=== PATIENT | female | born 1945 | race Caucasian/White ===

== ENCOUNTER 2022-03-25 13:47 | Inpatient (IN) | payer MEDICARE, SELFPAY ==
[2022-03-25] VITALS (13 sets, daily range): BP systolic 92–143; BP diastolic 56–81; PULSE 86–148; RESP 18–39; TEMP 36.9–37.9; O2SAT 90–94; BMI 32.5
--- NOTE | 2022-03-25 13:56 | HMH.EDUTC ---
[facility] [place] Disposition Clinical Impression: Atrial fibrillation with rapid ventricular response, Hypokalemia Urinary tract infection Qualifiers: Urinary tract infection type: site unspecified Hematuria presence: without hematuria Qualified Code(s): N39.0 - Urinary tract infection, site not specified Sepsis Qualifiers: Sepsis type: sepsis due to unspecified organism Sepsis acute organ dysfunction status: without acute organ dysfunction Qualified Code(s): A41.9 - Sepsis, unspecified organism Disposition: Admitted As Inpatient Condition on Discharge: Good Medical Decision Making - Medical Records Medical records reviewed: No: I reviewed the patient's medical records. - Venkatesh Inquiry Pt receiving controlled substance: No Vital Signs: 03/25/22 14:15 03/25/22 15:01 03/25/22 15:13 Temperature 98.4 F 100.2 F H Temperature Source Oral Oral Pulse Rate 139 H Pulse Rate [Left Radial] 135 H 139 H Respiratory Rate 22 18 Blood Pressure 116/66 Blood Pressure [Right Arm] 127/71 104/56 L Blood Pressure Mean 76 Blood Pressure Mean [Right Arm] 89 72 Blood Pressure Source Blood Pressure Source [Right Arm] Automatic Cuff Blood Pressure Position Blood Pressure Position [Right Arm] Sitting 02 Sat by Pulse Oximetry 92 L 94 L 93 L Oxygen Delivery Method Room Air 03/25/22 15:30 03/25/22 16:01 03/25/22 16:31 Temperature Temperature Source Pulse Rate 148 H 135 H 130 H Pulse Rate [Left Radial] Respiratory Rate 24 22 Blood Pressure 143/80 H 92/65 L 113/74 Blood Pressure [Right Arm] Blood Pressure Mean 96 70 86 Blood Pressure Mean [Right Arm] Blood Pressure Source Blood Pressure Source [Right Arm] Blood Pressure Position Blood Pressure Position [Right Arm] 02 Sat by Pulse Oximetry 93 L 91 L 94 L Oxygen Delivery Method 03/25/22 17:00 03/25/22 17:30 03/25/22 18:07 Temperature 100.2 F H Temperature Source Oral Pulse Rate 130 H 108 H 108 H Pulse Rate [Left Radial] Respiratory Rate 22 27 H 27 H Blood Pressure 120/81 128/64 128/64 Blood Pressure [Right Arm] Blood Pressure Mean 89 80 Blood Pressure Mean [Right Arm] Blood Pressure Source Automatic Cuff Blood Pressure Source [Right Arm] Blood Pressure Position Sitting Blood Pressure Position [Right Arm] 02 Sat by Pulse Oximetry 93 L 92 L Oxygen Delivery Method Room Air 03/25/22 18:10 Temperature 99.7 F H Temperature Source Oral Pulse Rate Pulse Rate [Left Radial] 97 H Respiratory Rate 39 H Blood Pressure Blood Pressure [Right Arm] 110/58 L Blood Pressure Mean Blood Pressure Mean [Right Arm] 75 Blood Pressure Source Blood Pressure Source [Right Arm] Automatic Cuff Blood Pressure Position Blood Pressure Position [Right Arm] 02 Sat by Pulse Oximetry 93 L Oxygen Delivery Method Room Air - Lab Data Lab results reviewed: Yes: I reviewed the patient's lab results. Lab Results 03/25/22 15:01: Magnesium 1.8, Troponin I 0.02 03/25/22 15:01: TSH 1.68, Free T4 Index 3.5 L, Thyroxine (T4) 9.3, T3 Uptake 38 03/25/22 15:07: SARS-CoV-2 (PCR) Not detected, Influenza A Untype (PCR) Not detected, Influenza Type B (PCR) Not detected 03/25/22 15:14: Urine Color Dark yellow, Urine Appearance Clear, Urine pH 5.0, Ur Specific [place] 1.025, Urine Protein 1+, Urine Glucose (UA) Negative, Urine Ketones Trace, Urine Blood 3+, Urine Nitrate Positive, Urine Bilirubin 2+ A, Urine Urobilinogen >=8.0, Ur Leukocyte Esterase 1+ A, Urine RBC 10-20, Urine WBC 5-10, Ur Squamous Epith Cells 3-5, Amorphous Sediment 3+, Urine Bacteria 4+ 03/25/22 15:14: WBC 17.8 H, RBC 4.57, Hgb 15.7, Hct 44.9, MCV 98.2, MCH 34.4 H, MCHC 35.0, RDW 13.8, Plt Count 125 L, MPV 11.6 H, Neut % (Auto) 86.8 H, Lymph % (Auto) 7.1 L, [place] % (Auto) 4.5, Eos % (Auto) 0.9, Baso % (Auto) 0.8, Neut # (Auto) 15.4 H, Lymph # (Auto) 1.3, [place] # (Auto) 0.8, Eos # (Auto) 0.2, Baso # (Auto) 0.1, Total Counted 100, Neutrophils % (Manual) 92 H, Lymphocytes % (Manual)
--- NOTE | 2022-03-25 15:14 | XR_ITS ---
FINAL REPORT CLINICAL HISTORY: acute cough, fever FINDINGS: The heart size is normal. The mediastinum is normal. There are mild bibasilar opacities, scarring or atelectasis. There are no pleural effusions. There is no pneumothorax. There is no osseous abnormality. IMPRESSION: Mild bibasilar opacities, scarring or atelectasis. Reviewed, Interpreted and Dictated by Bryan Anaya III, MD Transcribed by Radha Zamarripa Authenticated by Bryan Anaya III, MD on 03/25/2022 04:17:50 PM [facility]
--- NOTE | 2022-03-25 15:14 | CT_ITS ---
FINAL REPORT CLINICAL HISTORY: ams FINDINGS: Axial images of the head were obtained without contrast. Coronal reformatted images were also obtained.This study was performed with techniques to keep radiation doses as low as reasonably achievable (ALARA). Individualized dose reduction techniques using automated exposure control or adjustment of mA and/or kV according to the patient's size were employed. There are sizable areas of encephalomalacia bilaterally. There is moderate chronic ischemic change. There is no evidence of intracranial hemorrhage or mass. The ventricular size is within normal limits. There is no evidence of shift of the midline structures. No abnormal extra axial fluid collection is identified. There is postoperative change from left frontotemporal craniotomy. There is postoperative change at the left base of the brain with an aneurysm clip. There is mild mucosal thickening in the left maxillary sinus. IMPRESSION: Postoperative changes. Sizable areas of encephalomalacia bilaterally. Moderate chronic ischemic change. No acute intracranial abnormality. Reviewed, Interpreted and Dictated by Bryan Anaya III, MD Transcribed by Lincoln Gtz Authenticated by Bryan Anaya III, MD on 03/25/2022 04:17:[address] [facility]
--- NOTE | 2022-03-25 15:17 | PC.NURSE ---
vinnie notified of new orders on pt, spoke with Favio
--- NOTE | 2022-03-25 15:18 | HMH.EDGENADL ---
ED Disposition Clinical Impression: Atrial fibrillation with rapid ventricular response, Hypokalemia Urinary tract infection Qualifiers: Urinary tract infection type: site unspecified Hematuria presence: without hematuria Qualified Code(s): N39.0 - Urinary tract infection, site not specified Sepsis Qualifiers: Sepsis type: sepsis due to unspecified organism Sepsis acute organ dysfunction status: without acute organ dysfunction Qualified Code(s): A41.9 - Sepsis, unspecified organism Disposition: Admitted As Inpatient Condition on Discharge: Fair Referrals: Saud Brown [Primary Care Provider] - - Critical Care Critical Care Time: Yes Attestation: On 03/25/22, the high probability of a clinically significant, sudden or life threatening deterioration of the following system(s) required my full and direct attention, intervention and personal management. The time I documented below is in addition to time spent performing reported procedures but includes the following listed in this critical care notation. Total Critical Care Time: 35 Vital system(s) involved:: Circulatory Failure My critical care processes included: Assessment & monitoring of V/S, Initial and Re-exams, Data Review/Interpretation, Coordinating Care, Medication Orders and management, Documentation Medical Decision Making - Venkatesh Inquiry Pt receiving controlled substance: No Vital Signs: 03/25/22 14:15 03/25/22 15:01 03/25/22 15:13 Temperature 98.4 F 100.2 F H Temperature Source Oral Oral Pulse Rate 139 H Pulse Rate [Left Radial] 135 H 139 H Respiratory Rate 22 18 Blood Pressure 116/66 Blood Pressure [Right Arm] 127/71 104/56 L Blood Pressure Mean 76 Blood Pressure Mean [Right Arm] 89 72 Blood Pressure Source [Right Arm] Automatic Cuff Blood Pressure Position [Right Arm] Sitting 02 Sat by Pulse Oximetry 92 L 94 L 93 L Oxygen Delivery Method Room Air 03/25/22 15:30 03/25/22 16:01 Temperature Temperature Source Pulse Rate 148 H 135 H Pulse Rate [Left Radial] Respiratory Rate 24 Blood Pressure 143/80 H 92/65 L Blood Pressure [Right Arm] Blood Pressure Mean 96 70 Blood Pressure Mean [Right Arm] Blood Pressure Source [Right Arm] Blood Pressure Position [Right Arm] 02 Sat by Pulse Oximetry 93 L 91 L Oxygen Delivery Method - Lab Data Lab Results 03/25/22 15:01: Magnesium 1.8, Troponin I 0.02 03/25/22 15:01: TSH 1.68, Free T4 Index 3.5 L, Thyroxine (T4) 9.3, T3 Uptake 38 03/25/22 15:07: SARS-CoV-2 (PCR) Not detected, Influenza A Untype (PCR) Not detected, Influenza Type B (PCR) Not detected 03/25/22 15:14: Urine Color Dark yellow, Urine Appearance Clear, Urine pH 5.0, Ur Specific [place] 1.025, Urine Protein 1+, Urine Glucose (UA) Negative, Urine Ketones Trace, Urine Blood 3+, Urine Nitrate Positive, Urine Bilirubin 2+ A, Urine Urobilinogen >=8.0, Ur Leukocyte Esterase 1+ A, Urine RBC 10-20, Urine WBC 5-10, Ur Squamous Epith Cells 3-5, Amorphous Sediment 3+, Urine Bacteria 4+ 03/25/22 15:14: WBC 17.8 H, RBC 4.57, Hgb 15.7, Hct 44.9, MCV 98.2, MCH 34.4 H, MCHC 35.0, RDW 13.8, Plt Count 125 L, MPV 11.6 H, Neut % (Auto) 86.8 H, Lymph % (Auto) 7.1 L, [place] % (Auto) 4.5, Eos % (Auto) 0.9, Baso % (Auto) 0.8, Neut # (Auto) 15.4 H, Lymph # (Auto) 1.3, [place] # (Auto) 0.8, Eos # (Auto) 0.2, Baso # (Auto) 0.1, Total Counted 100, Neutrophils % (Manual) 92 H, Lymphocytes % (Manual) 3 L, Monocytes % (Manual) 5, Platelet Estimate Normal 03/25/22 15:14: PT 11.9, INR 1.06 03/25/22 15:14: Sodium 136, Potassium 2.8 L*, Chloride 101, Carbon Dioxide 28, Anion Gap 9.8, BUN 23 H, Creatinine 1.20 H, Estimated Creat Clear 64, Estimated GFR 44 L, Est GFR ( Amer) 53 L, Glucose 127 H, Calcium 8.9, Total Bilirubin 1.9 H, AST 48 H, ALT 21, Alkaline Phosphatase 118, Total Protein 6.7, Albumin 3.4 L, Globulin 3.3 H, Albumin/Globulin Ratio 1.0 L 03/25/22 15:14: Lactate 1.7 Result diagrams: 03/25/22 15:14 03/25/22 15:14 Orders (Tests/Meds)
--- NOTE | 2022-03-25 15:19 | PC.NURSE ---
ANA WISEMAN at
[2022-03-25 15:23] LABS: Microscopic, Urine URINE MICROSCOPIC (MICROSCOPIC)
[2022-03-25 15:23] LABS: Coronavirus 19, PCR Not Detected (NotDetected); Influenza A, PCR Not Detected (NotDetected); Influenza B, PCR Not Detected (NotDetected)
[2022-03-25 15:24] LABS: Appearance,Urine CLEAR (Clear); Blood, Urine 3+ (Negative); Glucose,Urine (UA) Negative (Negative); Ketones,Urine TRACE (Negative); Leukocyte Esterase,Urine 1+ (Negative); Nitrate,Urine POSITIVE (Negative); Protein,Urine 1+ (Negative); Specific Gravity, Urine 1.025 (1.005-1.030); Urobilinogen,Urine >=8.0 EU/dl (0.2)
[2022-03-25 15:30] LABS: Chloride 101 mmol/L (98-107); Sodium 136 mmol/L (136-145)
[2022-03-25 15:31] LABS: Bilirubin,Urine 2+ (Negative); Color,Urine Dark Yellow (Yellow)
[2022-03-25 15:32] LABS: Alanine Aminotransferase 21 U/L (12-78); Aspartate Amino Transferase 48 U/L (14-36); Blood Urea Nitrogen 23 mg/dl (7-17); Creatinine Clearance Estimated 64 mL/min (50-200); Estimated Glomerular Filt Rate 44 ml/min (>60); GFR (African American) 53 ML/MIN (>60)
[2022-03-25 15:33] LABS: Albumin Level 3.4 g/dl (3.5-5.0); Alkaline Phosphatase 118 U/L (38-126); Anion Gap 9.8 mEq/L (5-15); Bilirubin,Total 1.9 mg/dl (0.2-1.3); Calcium 8.9 mg/dl (8.4-10.2); Carbon Dioxide 28 mmol/L (22.0-30.0); Globulin 3.3 g/dL (1.3-3.2); Glucose 127 mg/dl (74-100); Total Protein,Serum 6.7 g/dl (6.3-8.2)
--- NOTE | 2022-03-25 15:33 | ECG_ITS ---
APPROVED REPORT Exam: Resting ECG HR:146 bpm ECG Measurements Heart Rate 146 AXES QRSd 99 QRS -28 QT 289 T 129 QTc 373 Conclusion ATRIAL FLUTTER/TACHYCARDIA WITH RAPID VENTRICULAR RESPONSE BORDERLINE LEFT AXIS DEVIATION [QRS AXIS < -20] INCOMPLETE RIGHT BUNDLE BRANCH BLOCK [90+ ms QRS DURATION, TERMINAL R IN V1/V2, 40+ ms S IN I/aVL/V4/V5/V6] NONSPECIFIC ST & T-WAVE ABNORMALITY ABNORMAL ECG UNCONFIRMED REPORT Electronically signed by : Marcial lAfonso MD 03/27/2022 08:44:30
[2022-03-25 15:34] LABS: Lactic Acid 1.7 mmol/L (0.7-2.1)
[2022-03-25 15:35] LABS: Basophils # 0.1 K/mm3 (0-0.2); Basophils % 0.8 % (0.1-2.0); Eosinophils # 0.2 K/mm3 (0.0-0.4); Eosinophils % 0.9 % (0.1-12.0); Hematocrit 44.9 % (37.0-47.0); Hemoglobin 15.7 g/dL (12.2-16.2); Lymphocytes # 1.3 K/mm3 (0.7-4.5); Lymphocytes % 7.1 % (10-50); Mean Corpuscular Hemoglobin 34.4 pg (27.0-31.2); Mean Corpuscular Volume 98.2 fl (81-99); Mean Platelet Volume 11.6 fl (7.4-10.4); Monocytes # 0.8 K/mm3 (0.1-1.0); Monocytes % 4.5 % (1.7-9.3); Neutrophils # 15.4 K/mm3 (1.8-7.8); Neutrophils % 86.8 % (37.0-80.0); Platelet Count 125 K/mm3 (142-424); Red Blood Count 4.57 M/mm3 (4.20-5.40); Red Cell Distribution Width 13.8 % (11.5-17.5); White Blood Count 17.8 K/mm3 (4.8-10.8)
--- NOTE | 2022-03-25 15:35 | PC.NURSE ---
pt to CT via stretcher will be moving pt to room [address] pt returns from Ct to place pt on school bus monitor
[2022-03-25 15:36] LABS: Potassium 2.8 mmoL/L (3.5-5.1)
--- NOTE | 2022-03-25 15:36 | PC.NURSE ---
lab called with critical potassium result, notified ANA WISEMAN at this time.
[2022-03-25 15:40] LABS: INR 1.06 (0.9-1.1); Prothrombin Time 11.9 seconds (10.1-12.5)
[2022-03-25 15:55] LABS: Bacteria,Urine 4+ /lpf; MANUAL DIFFERENTIAL MANUAL DIFFERENTIAL (MANUAL DIFF)
[2022-03-25 15:56] LABS: Amorphous Sediment,Urine 3+ /lpf
[2022-03-25 15:58] LABS: Magnesium 1.8 mg/dl (1.6-2.3)
[2022-03-25 16:10] LABS: Troponin I 0.02 ng/ml (0.00-0.034)
[2022-03-25 16:14] LABS: Lymphocytes % 3 % (10-50); Monocytes % 5 % (2-9); Neutrophils % 92 % (42-76); Platelet Estimate Normal; Total Cells Counted 100
[2022-03-25 16:16] LABS: Free Thyroxine Index 3.5 ug/dL (5.93-13.13); T4 (Thyroxine) 9.3 ug/dl (5.53-11.0); Triiodothryronine (T3) Uptake 38 % (23.5-40.5)
--- NOTE | 2022-03-25 16:20 | PC.NURSE ---
Titrated cardizem to 10ml/hr
[2022-03-25 16:30] LABS: Thyroid Stimulating Hormone 1.68 uIU/mL (0.465-4.68)
--- NOTE | 2022-03-25 16:45 | PC.NURSE ---
ANA WISEMAN speaking with Dr. Felicinao who is environmental analyst for service pts
--- NOTE | 2022-03-25 16:54 | PC.NURSE ---
notified warehouse production worker of admission
--- NOTE | 2022-03-25 17:00 | PC.NURSE ---
Titrated cardizem 15mls/hr
--- NOTE | 2022-03-25 17:55 | PC.NURSE ---
Report given to Alexa MANRIQUEZ
--- NOTE | 2022-03-25 18:08 | PC.NURSE ---
Pt arrived to the floor at this time.
--- NOTE | 2022-03-25 19:28 | PC.NURSE ---
shift summary: new admit @ 1810. Pt is alert to name and but is otherwise pleasantly confused. did not stay for pt to be admitted. Admission completed with little to no medical info as pt is unable to recall her medical hx. She is incontinent of urine and wears a brief at home. Luz catheter inserted in ED. Afib with rate 90s on tele. Diltiazem gtt @ 15mg/hr. Normotensive. O2 sat low 90s on RA. Does not wear O2 at home.
[2022-03-25 19:38] LABS: Troponin I < 0.01 ng/ml (0.00-0.034)
[2022-03-25 23:00] LABS: Troponin I < 0.01 ng/ml (0.00-0.034)
[2022-03-26] VITALS (11 sets, daily range): BP systolic 90–118; BP diastolic 57–76; PULSE 76–100; RESP 16–36; TEMP 36.8–38.2; O2SAT 90–96
[2022-03-26 06:29] LABS: Basophils % 0.3 % (0.1-2.0); Eosinophils % 0.3 % (0.1-12.0); Hematocrit 42.1 % (37.0-47.0); Hemoglobin 14.2 g/dL (12.2-16.2); Lymphocytes # 0.9 K/mm3 (0.7-4.5); Lymphocytes % 7.1 % (10-50); Mean Corpuscular HGB Conc 33.8 g/dL (31.8-35.4); Mean Corpuscular Hemoglobin 33.7 pg (27.0-31.2); Mean Corpuscular Volume 99.5 fl (81-99); Mean Platelet Volume 11.5 fl (7.4-10.4); Monocytes # 0.7 K/mm3 (0.1-1.0); Monocytes % 5.6 % (1.7-9.3); Neutrophils # 11.2 K/mm3 (1.8-7.8); Neutrophils % 86.7 % (37.0-80.0); Platelet Count 118 K/mm3 (142-424); Red Blood Count 4.23 M/mm3 (4.20-5.40); Red Cell Distribution Width 13.9 % (11.5-17.5); White Blood Count 12.9 K/mm3 (4.8-10.8)
[2022-03-26 06:30] LABS: MANUAL DIFFERENTIAL MANUAL DIFFERENTIAL (MANUAL DIFF)
[2022-03-26 06:37] LABS: Anion Gap 9.8 mEq/L (5-15); Blood Urea Nitrogen 19 mg/dl (7-17); Calcium 8.1 mg/dl (8.4-10.2); Carbon Dioxide 28 mmol/L (22.0-30.0); Chloride 102 mmol/L (98-107); Creatinine Clearance Estimated 62 mL/min (50-200); Estimated Glomerular Filt Rate 61 ml/min (>60); GFR (African American) 74 ML/MIN (>60); Glucose 122 mg/dl (74-100); Sodium 137 mmol/L (136-145)
[2022-03-26 06:58] LABS: Potassium 2.8 mmoL/L (3.5-5.1)
[2022-03-26 07:00] LABS: Lymphocytes % 5 % (10-50); Monocytes % 3 % (2-9); Neutrophils % 92 % (42-76); Platelet Estimate Slight Decrease; Total Cells Counted 100
[2022-03-26 07:01] LABS: Anisocytosis 1+; Macrocytosis 1+
--- NOTE | 2022-03-26 07:44 | HMH.PHAINT ---
HOME MEDICATION LIST VERIFIED USING LIST FROM [facility]
--- NOTE | 2022-03-26 07:45 | P.CONPHA_ITS ---
[facility] Pharmacy VTE Monitoring - Patient Demographics Admission date: 03/25/22 Report Date: 03/26/22 Time: 07:45 Allergies/Adverse Reactions: Patient Allergies warfarin [From Coumadin] Allergy (Verified 03/25/22 15:14) Height: 99.79 m Weight: 81.148 kg Patient Problems: Current Active Problems Atrial fibrillation with rapid ventricular response (Acute) Hypokalemia (Acute) Urinary tract infection (Acute) Sepsis (Acute) - VTE Risk Labs: VTE Related Lab Results Hgb 14.2 g/dL (12.2-16.2) 03/26/22 05:40 Hct 42.1 % (37.0-47.0) 03/26/22 05:40 Plt Count 118 K/mm3 (142-424) L 03/26/22 05:40 PT 11.9 seconds (10.1-12.5) 03/25/22 15:14 INR 1.06 (0.9-1.1) 03/25/22 15:14 BUN 19 mg/dl (7-17) H 03/26/22 05:40 Creatinine 0.90 mg/dl (0.52-1.04) D 03/26/22 05:40 Estimated Creat Clear 62 mL/min (50-200) 03/26/22 05:40 Was VTE Risk Assessment Performed: Yes VTE Score: 3 VTE Risk Level: Low Risk Clinical Trial Participant: No - Prophylaxis VTE Prophylaxis Ordered?: Yes Types of VTE Prophylaxis: TEDS Knee High
--- NOTE | 2022-03-26 09:53 | HMH.HP ---
*Admission Date: 03/25/22 *Chief complaint: Weakness *History of present illness: 76-year-old female patient presented to the emergency department, reports patient is chronically ill in a wheelchair and has been sitting all day in the wheelchair eating and drinking very little. He reports she has had a loose bowel movement yesterday morning, she denied any nausea or vomiting and is normally incontinent of urine and wears attends. denies any cough or respiratory distress cough and patient did have a temperature in the emergency department. reports she did have an aneurysm and she did have abnormal head CT's in the ED which revealed Postoperative changes. Sizable areas of encephalomalacia bilaterally. Moderate chronic ischemic change. No acuteintracranial abnormality. White blood cell count 17.8, UA reveals 1+ leukocyte esterase, 4+ bacteria, 3+ blood potassium 2.8, irregular heart rate 140s, EKG shows A. fib with RVR 76-year-old female patient resting quietly in bed with eyes open, she is awake, alert, and oriented to name. At present she is unsure where she is or why she is here. She does states she wants to go home, medical condition and the need to stay in the hospital explained to her she verbalized understanding. Diltiazem drip infusing with heart rate of 92, she denies any concerns/needs at present [facility] History I have reviewed the patient's past medical history: Yes Medical History: Reports:: Hypertension Denies:: Cancer, Diabetes Mellitus Type 1, Diabetes Mellitus Type 2, MRSA *Have you ever received a pneumonia vaccine?: No *Have you received a flu vaccine this season?: No Amputation: No Fractures: No - *Social History Last grade of school completed: High school graduate Smoking Status: Current every day smoker Alcohol Intake: never Alcohol Intake Frequency:: 0-2 drinks per day Substance Use Type: denies use *Occupational Status:: retired Household Members: spouse *Travel in the last 8 weeks: None Family Hx:: Unable to obtain Review of Systems - Review of Systems Review of systems:: pertinent systems reviewed and negative unless documented below - Constitutional Reports weakness, Denies chills - Eyes Denies blurry vision, Denies double vision - ENT Denies abnormal hearing - *Cardiovascular Denies chest pain, Denies shortness of breath - *Respiratory Denies chest congestion, Denies cough - *Gastrointestinal Denies abdominal pain, Denies difficulty swallowing - *Musculoskeletal Reports abnormal walking - Integumentary/Breasts Denies change in skin color, Denies yellowing of the skin - *Neurologic Reports weakness, Denies headache(s) - Psychiatric Denies lack of enjoyment, Denies depression - Endocrine Denies cold intolerance, Denies heat intolerance - Hematologic/Lymphatic Denies easy bruising, Denies enlarged lymph nodes - Allergic/Immunologic Denies lip swelling, Denies other Meds Home Medications Medication Instructions Recorded Confirmed Type Lisinopril/Hydrochlorothiazide 1 tab PO DAILY 03/25/22 03/25/22 History [Lisinopril-Hctz 20-12.5 mg Tab*] Furosemide [Furosemide 40MG tAB*] 40 mg PO DAILY PRN 03/26/22 03/26/22 History Allergies Allergy/AdvReac Type Severity Reaction Status Date / Time warfarin [From Coumadin] Allergy Verified 03/25/22 15:14 Exam Vital signs and Labs for Last 24 Hours: Temp Pulse Resp BP Pulse Ox 100.7 F H 88 31 H 96/61 L 90 L 03/26/22 08:00 03/26/22 06:00 03/26/22 06:00 03/26/22 06:00 03/26/22 06:00 Laboratory Results - last 24 hr 03/25/22 15:01: Magnesium 1.8, Troponin I 0.02 03/25/22 15:01: TSH 1.68, Free T4 Index 3.5 L, Thyroxine (T4) 9.3, T3 Uptake 38 03/25/22 15:07: SARS-CoV-2 (PCR) Not detected, Influenza A Untype (PCR) Not detected, Influenza Type B (PCR) Not detected 03/25/22 15:14: Urine Color Dark yellow, Urine Appearance Clear, Urine pH 5.0, Ur Specific [place] 1.025, Urine P
--- NOTE | 2022-03-26 11:49 | HMH.CNCARD ---
History of Present Illness Consult date: 03/26/22 Requesting physician: Pradeep Feliciano Consult reason: atrial fibrillation Chief complaint: afib rvr Additional Medical History:: Currently admitted for sepsis secondary to UTI Hx of HTN hx of aneurism rupture in head per History of present illness: HPI narrative: ER MD History obtained from patient's . Since Thursday she has not been herself. She is chronically in a wheelchair due to the previous aneurysm rupture, but since Thursday sits all day slumped over with her head on the chest in the wheelchair. Eating and drinking very little. She has had a cough. Noted to have fever in the emergency department. 1 episode of diarrhea this morning. No vomiting. She denies any pain or difficulty breathing. She is normally incontinent of urine and wears a diaper. 76 year old white female with past medical hx of HTN, wheelchair use since brain aneurism rupture in 2007 presented to ER yesterday with above complaint. Per patient has not been self since thursday, has had decreased intake and had been slumped over in wheelchair for most of week. He reports one episode of diarrhea yesterday. upon presentation to ER patient was found to be septic from UTI and in Afib rvr with rate in the 140s. Patient and denies prior hx of afib. CT of head was negative for acute process. Chest x-ray showed mild bibasilar opacities and scarring. Labs significant for WBC 17.8, Potassium 2.8, and creatinine 1.8 improved to 0.9 this am. Urine + for nitrates and leuk esterase. Total bili elevated. Patient admitted and started on cardizem drip. Currently remains afib with rate controlled. Cardiology asked to consult for management of afib rvr. [facility] History I have reviewed the patient's past medical history: Yes Medical History: Reports:: Aneurysm, Hypertension Denies:: Cancer, Diabetes Mellitus Type 1, Diabetes Mellitus Type 2, MRSA *Have you ever received a pneumonia vaccine?: No *Have you received a flu vaccine this season?: No Amputation: No - *Social History Smoking Status: Never smoker Alcohol Intake: never *Occupational Status:: retired Household Members: spouse *Travel in the last 8 weeks: None Family Hx:: Unable to obtain Meds Home Medications Medication Instructions Recorded Confirmed Type Lisinopril/Hydrochlorothiazide 1 tab PO DAILY 03/25/22 03/25/22 History [Lisinopril-Hctz 20-12.5 mg Tab*] Furosemide [Furosemide 40MG tAB*] 40 mg PO DAILY PRN 03/26/22 03/26/22 History Allergies Allergy/AdvReac Type Severity Reaction Status Date / Time warfarin [From Coumadin] Allergy Verified 03/25/22 15:14 Exam Vital signs and Labs for Last 24 Hours: Temp Pulse Resp BP Pulse Ox 100.7 F H 88 20 105/66 L 90 L 03/26/22 08:00 03/26/22 10:00 03/26/22 10:00 03/26/22 10:00 03/26/22 10:00 Laboratory Results - last 24 hr 03/25/22 15:01: Magnesium 1.8, Troponin I 0.02 03/25/22 15:01: TSH 1.68, Free T4 Index 3.5 L, Thyroxine (T4) 9.3, T3 Uptake 38 03/25/22 15:07: SARS-CoV-2 (PCR) Not detected, Influenza A Untype (PCR) Not detected, Influenza Type B (PCR) Not detected 03/25/22 15:14: Urine Color Dark yellow, Urine Appearance Clear, Urine pH 5.0, Ur Specific [place] 1.025, Urine Protein 1+, Urine Glucose (UA) Negative, Urine Ketones Trace, Urine Blood 3+, Urine Nitrate Positive, Urine Bilirubin 2+ A, Urine Urobilinogen >=8.0, Ur Leukocyte Esterase 1+ A, Urine RBC 10-20, Urine WBC 5-10, Ur Squamous Epith Cells 3-5, Amorphous Sediment 3+, Urine Bacteria 4+ 03/25/22 15:14: WBC 17.8 H, RBC 4.57, Hgb 15.7, Hct 44.9, MCV 98.2, MCH 34.4 H, MCHC 35.0, RDW 13.8, Plt Count 125 L, MPV 11.6 H, Neut % (Auto) 86.8 H, Lymph % (Auto) 7.1 L, [place] % (Auto) 4.5, Eos % (Auto) 0.9, Baso % (Auto) 0.8, Neut # (Auto) 15.4 H, Lymph # (Auto) 1.3, [place] # (Auto) 0.8, Eos # (Auto) 0.2, Baso # (Auto) 0.1, Total Counted 100, Neutrophils % (Manual) 92 H, Lymphocytes % (Manual) 3 L, Monocytes % (Ma
--- NOTE | 2022-03-26 15:09 | PC.NURSE ---
Addendum entered by Zandra Landis RN 03/26/22 17:08: Pt reports nausea is gone Original Note: Pt is alert to self. She has been pleasant and cooperative with staff. Cardizem drip has been off since 1245. She is still afib on tele but HR has been 70's - 80's. Her [place] was dc'd per order this am. She has urinated in brief since. Faint non-pitting edema to BLE, R>L. Low grade temp noted today, 100.7 this am, tylenol administered and temp was 100.1 on follow up. Lungs have been clear, occasional non-productive cough noted. She's remained on RA with O2 sats measuring 90-95%. She has denied any complaints. Family has been to visit and is supportive. She is out of step down now per cardiology and primary care.
--- NOTE | 2022-03-26 16:26 | INFXCTL.NOTE ---
This RN heard patient heaving, went in to check on her and she had vomited. Zofran administered, will reassess shortly.
[2022-03-27] VITALS (9 sets, daily range): BP systolic 115–149; BP diastolic 60–84; PULSE 90–120; RESP 16–19; TEMP 36.6–38; O2SAT 91–96; BMI 29.7
--- NOTE | 2022-03-27 04:32 | PC.NURSE ---
pt has rested well this shift, has remained on room air with O2 sats 92-96%, telemetry has shown a fib with rates 90-105, has not complained of any pain or SOA
[2022-03-27 07:20] LABS: Basophils # 0.2 K/mm3 (0-0.2); Basophils % 1.2 % (0.1-2.0); Eosinophils # 0.1 K/mm3 (0.0-0.4); Eosinophils % 0.7 % (0.1-12.0); Hematocrit 40.9 % (37.0-47.0); Hemoglobin 14.3 g/dL (12.2-16.2); Lymphocytes # 0.7 K/mm3 (0.7-4.5); Lymphocytes % 5.5 % (10-50); Mean Corpuscular HGB Conc 34.9 g/dL (31.8-35.4); Mean Corpuscular Hemoglobin 34.3 pg (27.0-31.2); Mean Corpuscular Volume 98.4 fl (81-99); Mean Platelet Volume 11.1 fl (7.4-10.4); Monocytes # 0.8 K/mm3 (0.1-1.0); Monocytes % 6.2 % (1.7-9.3); Neutrophils # 10.4 K/mm3 (1.8-7.8); Neutrophils % 86.4 % (37.0-80.0); Platelet Count 121 K/mm3 (142-424); Red Blood Count 4.16 M/mm3 (4.20-5.40); Red Cell Distribution Width 13.6 % (11.5-17.5); White Blood Count 12.1 K/mm3 (4.8-10.8)
[2022-03-27 07:23] LABS: MANUAL DIFFERENTIAL MANUAL DIFFERENTIAL (MANUAL DIFF)
[2022-03-27 07:30] LABS: Anion Gap 9.1 mEq/L (5-15); Blood Urea Nitrogen 16 mg/dl (7-17); Calcium 8.2 mg/dl (8.4-10.2); Carbon Dioxide 29 mmol/L (22.0-30.0); Chloride 100 mmol/L (98-107); Creatinine Clearance Estimated 62 mL/min (50-200); Estimated Glomerular Filt Rate 70 ml/min (>60); GFR (African American) 85 ML/MIN (>60); Glucose 97 mg/dl (74-100); Potassium 3.1 mmoL/L (3.5-5.1); Sodium 135 mmol/L (136-145)
[2022-03-27 07:46] LABS: Lymphocytes % 11 % (10-50); Monocytes % 11 % (2-9); Neutrophils % 76 % (42-76); Platelet Estimate Slight Decrease; Total Cells Counted 100
[2022-03-27 07:47] LABS: Anisocytosis 1+; Macrocytosis 1+
--- NOTE | 2022-03-27 08:18 | HMH.PNCARD ---
Subjective Date: 03/27/22 Time: 08:18 Principal diagnosis: afib rvr, uti, sepsis Interval history: Patient resting comfortably this morning. Denies cp or soa. Denies palpitations. Off cardizem drip, received one dose of Metoprolol succinate 50mg yesterday. Currently remains afib with rate in low 100s. Awaiting morning dose of metoprolol. wbc improving to 12.1 this am. Exam Vital signs and Labs for Last 24 Hours: Temp Pulse Resp BP Pulse Ox 99.9 F H 115 H 16 123/61 91 L 03/27/22 08:00 03/27/22 08:00 03/27/22 08:00 03/27/22 08:00 03/27/22 08:00 Laboratory Results - last 24 hr 03/27/22 06:00: WBC 12.1 H, RBC 4.16 L, Hgb 14.3, Hct 40.9, MCV 98.4, MCH 34.3 H, MCHC 34.9, RDW 13.6, Plt Count 121 L, MPV 11.1 H, Neut % (Auto) 86.4 H, Lymph % (Auto) 5.5 L, [place] % (Auto) 6.2, Eos % (Auto) 0.7, Baso % (Auto) 1.2, Neut # (Auto) 10.4 H, Lymph # (Auto) 0.7, [place] # (Auto) 0.8, Eos # (Auto) 0.1, Baso # (Auto) 0.2, Total Counted 100, Neutrophils % (Manual) 76, Band Neutrophils % 2.0, Lymphocytes % (Manual) 11, Monocytes % (Manual) 11 H, Platelet Estimate Slight decrease, Anisocytosis 1+, Macrocytosis 1+ 03/27/22 06:00: Sodium 135 L, Potassium 3.1 L, Chloride 100, Carbon Dioxide 29, Anion Gap 9.1, BUN 16, Creatinine 0.80, Estimated Creat Clear 62, Estimated GFR 70, Est GFR ( Amer) 85, Glucose 97, Calcium 8.2 L I & O for Last 24 hours: Intake & Output 03/24/22 03/25/22 03/26/22 03/27/22 23:59 23:59 23:59 23:59 Intake Total 840 / 840 Output Total 750 / 750 Balance 90 / 90 Weight 179 lb 3 oz 178 lb 14.4 oz 178 lb 14.4 oz Microbiology Reports for the Last 24 Hours: Microbiology 03/25/22 15:14 Urine,Clean Catch Urine Culture - Preliminary Gram Negative Rods - Constitutional no acute distress - *Routine HEENT Exam Head: Present: normocephalic Eye: Present: EOMI, PERRL ENT: Present: mucous membranes moist - *Routine Neck Exam Present: supple. Absent: lymphadenopathy - *Routine Respiratory Exam Present: CTA bilaterally - *Routine Cardiovascular Exam Present: tachycardia Comments: afib - *Routine Abdominal Exam Present: soft, normoactive bowel sounds. Absent: tenderness - *Routine Extremities Exam Absent: cyanosis, clubbing, edema - *Routine Skin Exam Present: warm. Absent: rash - *Routine Neurological Exam Present: alert, oriented X3 Progress Note: A&P (1) Atrial fibrillation with rapid ventricular response Status: Acute (2) Hypokalemia Status: Acute (3) Sepsis Status: Acute (4) Total bilirubin, elevated Status: Acute (5) Urinary tract infection Status: Acute Assessment and Plan for All Diagnoses:: Afib/flutter RVR chadsvasc at least a 4 - In the presence of acute sepsis - Rate currently controlled with Dilt drip. BP on low side. Recommend titrating off drip. Add metoprolol succinate 50mg QD - start xarelto 20mg QD - rate control may be hard to achieve in the presence of sepsis. treat underlying sepsis - Echo 03/26- EF 50-55 mild MR, mild to moderate TR. pressure 42 03/27 update- Patient remains afib rate 110-120. will give increast metoprolol to 100mg QD. Acute sepsis secondary to UTI - Treatment for underlying illness per pcp 03/27- improving wbc today 12.1 Hypokalemia - replacement 03-27 resolved Elevated total bili - Continue to trend, consider ultrasound as needed. 03/27 summary: will continue to follow. Dose with metoprolol as above, hydrate, treat underlying illness.
--- NOTE | 2022-03-27 09:53 | HMH.ACPN2 ---
Internal Medicine - PN: Subj *Date: 03/27/22 *Time: 22:03 Interval history: 76-year-old female patient resting in bed quietly this morning, she is more alert today than she was yesterday. She denies any chest pain, shortness of breath, or abdominal pain last night Exam Vital signs and Labs for Last 24 Hours: Temp Pulse Resp BP Pulse Ox 100.4 F H 115 H 16 123/61 91 L 03/27/22 09:02 03/27/22 08:00 03/27/22 08:00 03/27/22 08:00 03/27/22 08:00 Laboratory Results - last 24 hr 03/27/22 06:00: WBC 12.1 H, RBC 4.16 L, Hgb 14.3, Hct 40.9, MCV 98.4, MCH 34.3 H, MCHC 34.9, RDW 13.6, Plt Count 121 L, MPV 11.1 H, Neut % (Auto) 86.4 H, Lymph % (Auto) 5.5 L, [place] % (Auto) 6.2, Eos % (Auto) 0.7, Baso % (Auto) 1.2, Neut # (Auto) 10.4 H, Lymph # (Auto) 0.7, [place] # (Auto) 0.8, Eos # (Auto) 0.1, Baso # (Auto) 0.2, Total Counted 100, Neutrophils % (Manual) 76, Band Neutrophils % 2.0, Lymphocytes % (Manual) 11, Monocytes % (Manual) 11 H, Platelet Estimate Slight decrease, Anisocytosis 1+, Macrocytosis 1+ 03/27/22 06:00: Sodium 135 L, Potassium 3.1 L, Chloride 100, Carbon Dioxide 29, Anion Gap 9.1, BUN 16, Creatinine 0.80, Estimated Creat Clear 62, Estimated GFR 70, Est GFR ( Amer) 85, Glucose 97, Calcium 8.2 L I & O for Last 24 hours: Intake & Output 03/24/22 03/25/22 03/26/22 03/27/22 23:59 23:59 23:59 23:59 Intake Total 840 / 840 240 / 240 Output Total 750 / 750 Balance 90 / 90 240 / 240 Weight 179 lb 3 oz 178 lb 14.4 oz 178 lb 14.4 oz Microbiology Reports for the Last 24 Hours: Microbiology 03/25/22 15:14 Urine,Clean Catch Urine Culture - Preliminary Gram Negative Rods - Constitutional no acute distress, chronically ill appearing - *Routine HEENT Exam Head: Present: normocephalic Eye: Present: EOMI ENT: Present: mucous membranes moist - *Routine Neck Exam Present: trachea midline. Absent: tracheal deviation - *Routine Respiratory Exam Present: CTA bilaterally. Absent: accessory muscle use - *Routine Cardiovascular Exam Present: irregularly irregular - *Routine Abdominal Exam Present: soft, normoactive bowel sounds. Absent: tenderness, distended - *Routine Extremities Exam Present: full ROM, pulses intact. Absent: cyanosis, clubbing, edema - *Routine Skin Exam Present: intact, cyanosis. Absent: erythema, dry - *Routine Neurological Exam Present: alert, oriented X3. Absent: motor deficit - Routine Psychiatric Exam Present: normal affect, unable to assess Assessment and Plan (1) Atrial fibrillation with rapid ventricular response Status: Acute Category: Medical Code(s): I48.91 - Unspecified atrial fibrillation (2) Hypokalemia Status: Acute Category: Medical Code(s): E87.6 - Hypokalemia (3) Sepsis Status: Acute Qualifiers: Sepsis type: sepsis due to unspecified organism Sepsis acute organ dysfunction status: without acute organ dysfunction Qualified Code(s): A41.9 - Sepsis, unspecified organism Category: Medical Code(s): A41.9 - Sepsis, unspecified organism (4) Total bilirubin, elevated Status: Acute Category: Medical Code(s): R17 - Unspecified jaundice (5) Urinary tract infection Status: Acute Qualifiers: Urinary tract infection type: site unspecified Hematuria presence: without hematuria Qualified Code(s): N39.0 - Urinary tract infection, site not specified Category: Medical Code(s): N39.0 - Urinary tract infection, site not specified - Assessment and plan all Dx Assessment and Plan for all problems:: Rounded with Dr. Wilkins, all orders per Dr. Wilkins: 1. Continue ceftriaxone 2. Cardiology following
--- NOTE | 2022-03-27 14:28 | HMH.PTEV ---
Physical Therapy Evaluation Rehab PT IP Evaluation Start: 03/27/22 13:15 Freq: ONCE Status: Active Protocol: Document 03/27/22 14:19 ROGERHANNY (Rec: 03/27/22 14:27 ROGERHANNY [id number]) Subjective/History History History 76-year-old female patient presented to the emergency department, reports patient is chronically ill in a wheelchair and has been sitting all day in the wheelchair eating and drinking very little. He reports she has had a loose bowel movement yesterday morning, she denied any nausea or vomiting and is normally incontinent of urine and wears attends. denies any cough or respiratory distress cough and patient did have a temperature in the emergency department. reports she did have an aneurysm and she did have abnormal head CT' s in the ED which revealed Postoperative changes. Sizable areas of encephalomalacia bilaterally. Moderate chronic ischemic change. No acuteintracranial abnormality. Subjective Subjective Pt had no complaints - pt reports pt needed minimal assistance at home for transfers but pt has uses wc for mobility - pt does have minimal difficulty w/ rirections which may be due to hearing loss Rehab PT IP Eval Objective Appearance Patient Behavior Cooperative Patient Orientation Place,Name,Birthday,Year Difficulty following instructions mild Speech Pattern Appropriate Ambulation Patient Able to Ambulate No Ambulation Observation IP General Gait Pattern Observation Ataxic Gait Ambulation Ability Maximum x 1 (75% assist) Balance Ability to Arise Unable Sitting Balance Leans or slides in chair Standing Balance Unsteady Dynamic Sitting Balance Ability Fair Dynamic Standing Balance Ability Poor Transfers Bed Transfer Ability
--- NOTE | 2022-03-27 14:40 | HMH.OTEV ---
OT Inpatient Evaluation Rehab OT IP Evaluation Start: 03/27/22 13:15 Freq: ONCE Status: Complete Protocol: Document 03/27/22 14:10 EDGARDO (Rec: 03/27/22 14:40 EDGARDO [id number]) Rehab OT IP Assessment Subjective History 76-year-old female patient presented to the emergency department, reports patient is chronically ill in a wheelchair and has been sitting all day in the wheelchair eating and drinking very little. He reports she has had a loose bowel movement yesterday morning, she denied any nausea or vomiting and is normally incontinent of urine and wears attends. denies any cough or respiratory distress cough and patient did have a temperature in the emergency department. reports she did have an aneurysm and she did have abnormal head CT's in the ED which revealed Postoperative changes. Sizable areas of encephalomalacia bilaterally. Moderate chronic ischemic change. No acuteintracranial abnormality. White blood cell count 17.8, UA reveals 1+ leukocyte esterase, 4+ bacteria, 3+ blood potassium 2.8, irregular heart rate 140s, EKG shows A. fib with RVR 76-year-old female patient resting quietly in bed with eyes open, she is awake, alert , and oriented to name. At present she is unsure where she is or why she is here. She does states she wants to go home, medical condition and the need to stay in the hospital explained to her she verbalized understanding. Diltiazem drip infusing with heart rate of 92, she denies
--- NOTE | 2022-03-27 15:02 | SW/DCPLANNER ---
I spoke with patient and her family regarding plans once medically stable for discharge. PT/OT evaluation has been completed and SNF level of care is recommended at time of discharge. Family has requested [facility] at time of discharge. Amy moreno [facility] has confirmed that she does have female beds available. Patient information has been faxed to Amy pagan/ [email or web address]. Discharge date is unknown at this time.
--- NOTE | 2022-03-27 15:37 | PC.NURSE ---
Pt is pleasantly confused. Alert to self only. She's been afib on tele with HR 100's-120's. Occasionally she'll reach 130's but she doesn't maintain that rate very long. Appetite has been ok w/her feeding her most of her meals. She's been up to the chair with assist x2. She is very weak and not able to assist much with transfer. She has denied any complaints.
[2022-03-28] VITALS (8 sets, daily range): BP systolic 104–130; BP diastolic 58–85; PULSE 80–120; RESP 17–30; TEMP 36.7–37.2; O2SAT 92–96; BMI 29.7
--- NOTE | 2022-03-28 03:47 | PC.NURSE ---
No acute changes this shift. Pt has slept at intervals. No complaints of pain or soa. Pt remains afib on telemetry. HR 100s-110s with brief episodes of HR increasing to 120s momentarily. VSS at this time. Pt remains on RA. Lungs noted to have rhonchi t/o. Pt assisted with repositioning. No other concerns. Will continue to monitor.
[2022-03-28 06:42] LABS: Basophils % 0.4 % (0.1-2.0); Eosinophils # 0.1 K/mm3 (0.0-0.4); Eosinophils % 0.6 % (0.1-12.0); Hematocrit 39.4 % (37.0-47.0); Hemoglobin 13.6 g/dL (12.2-16.2); Lymphocytes # 0.9 K/mm3 (0.7-4.5); Lymphocytes % 9.5 % (10-50); Mean Corpuscular HGB Conc 34.5 g/dL (31.8-35.4); Mean Corpuscular Hemoglobin 33.9 pg (27.0-31.2); Mean Corpuscular Volume 98.4 fl (81-99); Mean Platelet Volume 9.8 fl (7.4-10.4); Monocytes # 0.7 K/mm3 (0.1-1.0); Monocytes % 7.4 % (1.7-9.3); Neutrophils # 7.7 K/mm3 (1.8-7.8); Neutrophils % 82.1 % (37.0-80.0); Platelet Count 129 K/mm3 (142-424); Red Cell Distribution Width 13.7 % (11.5-17.5); White Blood Count 9.4 K/mm3 (4.8-10.8)
[2022-03-28 06:57] LABS: Anion Gap 9.5 mEq/L (5-15); Blood Urea Nitrogen 13 mg/dl (7-17); Calcium 7.8 mg/dl (8.4-10.2); Carbon Dioxide 28 mmol/L (22.0-30.0); Chloride 98 mmol/L (98-107); Creatinine Clearance Estimated 62 mL/min (50-200); Estimated Glomerular Filt Rate 70 ml/min (>60); GFR (African American) 85 ML/MIN (>60); Glucose 92 mg/dl (74-100); Potassium 3.5 mmoL/L (3.5-5.1); Sodium 132 mmol/L (136-145)
--- NOTE | 2022-03-28 08:23 | HMH.PNCARD ---
Subjective Date: 03/28/22 Time: 08:23 Principal diagnosis: afib rvr, uti, sepsis Interval history: 76 yo WF at bedside in NAD. No chest pain. I'm for sure going home today! Tele shows A. patrick with mild RVR (100-115 bpm) despite addition of digoxin yesterday. Exam Vital signs and Labs for Last 24 Hours: Temp Pulse Resp BP Pulse Ox 99.0 F 111 H 17 113/58 L 96 03/28/22 03:36 03/28/22 04:00 03/28/22 03:36 03/28/22 03:36 03/28/22 03:36 Laboratory Results - last 24 hr 03/28/22 06:20: WBC 9.4, RBC 4.00 L, Hgb 13.6, Hct 39.4, MCV 98.4, MCH 33.9 H, MCHC 34.5, RDW 13.7, Plt Count 129 L, MPV 9.8, Neut % (Auto) 82.1 H, Lymph % (Auto) 9.5 L, [place] % (Auto) 7.4, Eos % (Auto) 0.6, Baso % (Auto) 0.4, Neut # (Auto) 7.7, Lymph # (Auto) 0.9, [place] # (Auto) 0.7, Eos # (Auto) 0.1, Baso # (Auto) 0.0 03/28/22 06:20: Sodium 132 L, Potassium 3.5, Chloride 98, Carbon Dioxide 28, Anion Gap 9.5, BUN 13, Creatinine 0.80, Estimated Creat Clear 62, Estimated GFR 70, Est GFR ( Amer) 85, Glucose 92, Calcium 7.8 L I & O for Last 24 hours: Intake & Output 03/25/22 03/26/22 03/27/22 03/28/22 11:59 11:59 11:59 11:59 Intake Total 300 / 300 780 / 780 2240 / 2240 Output Total 750 / 750 Balance -450 / -450 780 / 780 2240 / 2240 Weight 178 lb 14.4 oz 178 lb 14.129 oz 178 lb 14.4 oz Microbiology Reports for the Last 24 Hours: Microbiology 03/25/22 15:14 Urine,Clean Catch Urine Culture - Final Escherichia coli 03/25/22 15:07 Blood Blood Culture - Preliminary NO GROWTH AFTER 48 HOURS 03/25/22 15:07 Blood Blood Culture - Preliminary NO GROWTH AFTER 48 HOURS - Constitutional no acute distress - *Routine Respiratory Exam Present: CTA bilaterally - *Routine Cardiovascular Exam Present: tachycardia, irregular rhythm - *Routine Neurological Exam Present: alert Progress Note: A&P (1) Atrial fibrillation with rapid ventricular response Status: Acute (2) Hypokalemia Status: Acute (3) Sepsis Status: Acute (4) Total bilirubin, elevated Status: Acute (5) Urinary tract infection Status: Acute Assessment and Plan for All Diagnoses:: 1. A. fib with RVR, rate was better on IV diltiazem. Now off IV diltiazem and on combo of BB and digoxin but still with mild RVR. Will reduce lisinopril to 10 mg daily and metoprolol succinate to 50 mg daily. Add diltiazem CD 180 mg daily. Continue digoxin for now but monitor closely on telemetry. Echo EF looks hyperdynamic so diltiazem should help. Continue Xarelto. 2. UTI with sepsis, per PCP 3. Hyponatremia, possibly exacerbated by HCTZ in setting of sepsis. Will hold for now. 4. Hypokalemia, resolved on supplement.
--- NOTE | 2022-03-28 09:44 | HMH.ACPN2 ---
Internal Medicine - PN: Subj *Date: 03/28/22 *Time: 10:30 Interval history: A 6-year-old female patient sitting up in chair resting quietly with eyes open. She reports she is feeling much better today she denies any chest pain or shortness of breath. She is requesting to be discharged home, explained to patient we are adjusting her heart medications and will hopefully discharge this weekend. Urine culture has resulted E. coli and she has been receiving ceftriaxone IV Exam Vital signs and Labs for Last 24 Hours: Temp Pulse Resp BP Pulse Ox 99.0 F 108 H 19 113/58 L 96 03/28/22 03:36 03/28/22 08:48 03/28/22 08:00 03/28/22 03:36 03/28/22 03:36 Laboratory Results - last 24 hr 03/28/22 06:20: WBC 9.4, RBC 4.00 L, Hgb 13.6, Hct 39.4, MCV 98.4, MCH 33.9 H, MCHC 34.5, RDW 13.7, Plt Count 129 L, MPV 9.8, Neut % (Auto) 82.1 H, Lymph % (Auto) 9.5 L, [place] % (Auto) 7.4, Eos % (Auto) 0.6, Baso % (Auto) 0.4, Neut # (Auto) 7.7, Lymph # (Auto) 0.9, [place] # (Auto) 0.7, Eos # (Auto) 0.1, Baso # (Auto) 0.0 03/28/22 06:20: Sodium 132 L, Potassium 3.5, Chloride 98, Carbon Dioxide 28, Anion Gap 9.5, BUN 13, Creatinine 0.80, Estimated Creat Clear 62, Estimated GFR 70, Est GFR ( Amer) 85, Glucose 92, Calcium 7.8 L I & O for Last 24 hours: Intake & Output 03/25/22 03/26/22 03/27/22 03/28/22 23:59 23:59 23:59 23:59 Intake Total 840 / 840 2480 / 2480 Output Total 750 / 750 Balance 90 / 90 2480 / 2480 Weight 179 lb 3 oz 178 lb 14.4 oz 178 lb 14.129 oz 178 lb 14.4 oz Microbiology Reports for the Last 24 Hours: Microbiology 03/25/22 15:14 Urine,Clean Catch Urine Culture - Final Escherichia coli 03/25/22 15:07 Blood Blood Culture - Preliminary NO GROWTH AFTER 48 HOURS 03/25/22 15:07 Blood Blood Culture - Preliminary NO GROWTH AFTER 48 HOURS - Constitutional no acute distress - *Routine HEENT Exam Head: Present: normocephalic Eye: Present: EOMI ENT: Present: mucous membranes moist - *Routine Neck Exam Present: trachea midline. Absent: tracheal deviation - *Routine Respiratory Exam Present: CTA bilaterally. Absent: accessory muscle use - *Routine Cardiovascular Exam Present: irregularly irregular - *Routine Abdominal Exam Present: soft, normoactive bowel sounds. Absent: tenderness, distended, guarding - *Routine Extremities Exam Present: full ROM, pulses intact. Absent: cyanosis, clubbing - *Routine Skin Exam Present: intact, dry. Absent: cyanosis, erythema - *Routine Neurological Exam Present: alert, oriented X3. Absent: motor deficit - Routine Psychiatric Exam Present: unable to assess Assessment and Plan (1) Atrial fibrillation with rapid ventricular response Status: Acute Category: Medical Code(s): I48.91 - Unspecified atrial fibrillation (2) Hypokalemia Status: Acute Category: Medical Code(s): E87.6 - Hypokalemia (3) Sepsis Status: Acute Qualifiers: Sepsis type: sepsis due to unspecified organism Sepsis acute organ dysfunction status: without acute organ dysfunction Qualified Code(s): A41.9 - Sepsis, unspecified organism Category: Medical Code(s): A41.9 - Sepsis, unspecified organism (4) Total bilirubin, elevated Status: Acute Category: Medical Code(s): R17 - Unspecified jaundice (5) Urinary tract infection Status: Acute Qualifiers: Urinary tract infection type: site unspecified Hematuria presence: without hematuria Qualified Code(s): N39.0 - Urinary tract infection, site not specified Category: Medical Code(s): N39.0 - Urinary tract infection, site not specified - Assessment and plan all Dx Assessment and Plan for all problems:: Rounded with Dr. Feliciano, all orders per Dr. Feliciano: 1. Cardiology following 2. Continue ceftriaxone for UTI
--- NOTE | 2022-03-28 10:39 | CARE MANAGER ---
Spoke with Amy from [facility] [place], she will begin precetification for this patient today, hopefully she can go to [facility] [place] over the weekend.
--- NOTE | 2022-03-28 15:29 | PC.NURSE ---
PT IN AOX1, IS ABLE TO TELL YOU HER NAME. SHE GETS CONFUSED AT TIMES. AFIB ON TELE. SHE HAS NOT REQUIRED O2 SUPPORT. SHE DID SIT UP TO THE CHAIR FOR A FEW HOURS THIS SHIFT AND TOLERATED WELL.
--- NOTE | 2022-03-28 21:46 | PC.NURSE ---
pt refuses to be changed, RN explained can get a bed sore or infection if not changed and pt yelled no and balled up fist, both srna's attempted to change pt without success, smelter charger attempted to change pt and reiterated necessity of changing soiled pads, pt very adamant does not want to be changed. Notified torres Barnett, instructed to try again in 15 minutes.
[2022-03-29] VITALS (11 sets, daily range): BP systolic 110–165; BP diastolic 59–92; PULSE 85–134; RESP 17–20; TEMP 36.4–37.1; O2SAT 93–95; BMI 29.9
[2022-03-29 07:55] LABS: Basophils # 0.1 K/mm3 (0-0.2); Basophils % 1.3 % (0.1-2.0); Eosinophils # 0.1 K/mm3 (0.0-0.4); Eosinophils % 1.1 % (0.1-12.0); Hematocrit 41.8 % (37.0-47.0); Hemoglobin 14.2 g/dL (12.2-16.2); Lymphocytes % 13.6 % (10-50); Mean Corpuscular Hemoglobin 33.6 pg (27.0-31.2); Mean Corpuscular Volume 98.7 fl (81-99); Mean Platelet Volume 11.5 fl (7.4-10.4); Monocytes # 0.6 K/mm3 (0.1-1.0); Monocytes % 7.4 % (1.7-9.3); Neutrophils # 5.7 K/mm3 (1.8-7.8); Neutrophils % 76.6 % (37.0-80.0); Platelet Count 145 K/mm3 (142-424); Red Blood Count 4.24 M/mm3 (4.20-5.40); Red Cell Distribution Width 13.5 % (11.5-17.5); White Blood Count 7.5 K/mm3 (4.8-10.8)
[2022-03-29 07:58] LABS: Chloride 104 mmol/L (98-107); Potassium 3.8 mmoL/L (3.5-5.1); Sodium 136 mmol/L (136-145)
[2022-03-29 08:01] LABS: Anion Gap 10.8 mEq/L (5-15); Blood Urea Nitrogen 11 mg/dl (7-17); Carbon Dioxide 25 mmol/L (22.0-30.0); Creatinine Clearance Estimated 63 mL/min (50-200); Estimated Glomerular Filt Rate 97 ml/min (>60); GFR (African American) 118 ML/MIN (>60)
[2022-03-29 08:02] LABS: Calcium 8.2 mg/dl (8.4-10.2); Glucose 98 mg/dl (74-100)
--- NOTE | 2022-03-29 09:25 | HMH.ACPN2 ---
Internal Medicine - PN: Subj *Date: 03/29/22 *Time: 09:27 Interval history: alert but still with a fib with rvr and elevated bp - no chest pain or other c/o Exam Vital signs and Labs for Last 24 Hours: Temp Pulse Resp BP Pulse Ox 97.9 F 134 H 17 147/92 H 94 L 03/29/22 08:00 03/29/22 08:06 03/29/22 08:00 03/29/22 08:00 03/29/22 08:00 Laboratory Results - last 24 hr 03/29/22 06:45: WBC 7.5, RBC 4.24, Hgb 14.2, Hct 41.8, MCV 98.7, MCH 33.6 H, MCHC 34.0, RDW 13.5, Plt Count 145, MPV 11.5 H, Neut % (Auto) 76.6, Lymph % (Auto) 13.6, [place] % (Auto) 7.4, Eos % (Auto) 1.1, Baso % (Auto) 1.3, Neut # (Auto) 5.7, Lymph # (Auto) 1.0, [place] # (Auto) 0.6, Eos # (Auto) 0.1, Baso # (Auto) 0.1 03/29/22 06:45: Sodium 136, Potassium 3.8, Chloride 104, Carbon Dioxide 25, Anion Gap 10.8, BUN 11, Creatinine 0.60 D, Estimated Creat Clear 63, Estimated GFR 97, Est GFR ( Amer) 118 D, Glucose 98, Calcium 8.2 L I & O for Last 24 hours: Intake & Output 03/26/22 03/27/22 03/28/22 03/29/22 11:59 11:59 11:59 11:59 Intake Total 300 / 300 780 / 780 2403 / 2403 1180 / 1180 Output Total 750 / 750 Balance -450 / -450 780 / 780 2403 / 2403 1180 / 1180 Weight 178 lb 14.4 oz 178 lb 14.129 oz 178 lb 14.4 oz 179 lb 9.6 oz - Constitutional no acute distress - *Routine HEENT Exam Head: Present: normocephalic Eye: Present: EOMI, PERRL ENT: Present: mucous membranes dry - *Routine Neck Exam Absent: JVD - *Routine Respiratory Exam Present: decreased breath sounds - *Routine Cardiovascular Exam Present: S4, irregularly irregular - *Routine Abdominal Exam Present: soft - *Routine Extremities Exam Absent: calf tenderness - *Routine Skin Exam Present: intact - *Routine Neurological Exam Present: alert, CN II-XII intact - Routine Psychiatric Exam Present: cooperative Assessment and Plan (1) Atrial fibrillation with rapid ventricular response Status: Acute Category: Medical Code(s): I48.91 - Unspecified atrial fibrillation (2) Hypokalemia Status: Acute Category: Medical Code(s): E87.6 - Hypokalemia (3) Sepsis Status: Acute Qualifiers: Sepsis type: sepsis due to unspecified organism Sepsis acute organ dysfunction status: without acute organ dysfunction Qualified Code(s): A41.9 - Sepsis, unspecified organism Category: Medical Code(s): A41.9 - Sepsis, unspecified organism (4) Total bilirubin, elevated Status: Acute Category: Medical Code(s): R17 - Unspecified jaundice (5) Urinary tract infection Status: Acute Qualifiers: Urinary tract infection type: site unspecified Hematuria presence: without hematuria Qualified Code(s): N39.0 - Urinary tract infection, site not specified Category: Medical Code(s): N39.0 - Urinary tract infection, site not specified
--- NOTE | 2022-03-29 11:16 | HMH.ACPN ---
Internal Medicine - PN: Subj *Date: 03/29/22 *Time: 11:16 Exam Vital signs and Labs for Last 24 Hours: Temp Pulse Resp BP Pulse Ox 97.9 F 111 H 20 138/71 94 L 03/29/22 08:00 03/29/22 09:33 03/29/22 09:33 03/29/22 09:33 03/29/22 08:00 Laboratory Results - last 24 hr 03/29/22 06:45: WBC 7.5, RBC 4.24, Hgb 14.2, Hct 41.8, MCV 98.7, MCH 33.6 H, MCHC 34.0, RDW 13.5, Plt Count 145, MPV 11.5 H, Neut % (Auto) 76.6, Lymph % (Auto) 13.6, [place] % (Auto) 7.4, Eos % (Auto) 1.1, Baso % (Auto) 1.3, Neut # (Auto) 5.7, Lymph # (Auto) 1.0, [place] # (Auto) 0.6, Eos # (Auto) 0.1, Baso # (Auto) 0.1 03/29/22 06:45: Sodium 136, Potassium 3.8, Chloride 104, Carbon Dioxide 25, Anion Gap 10.8, BUN 11, Creatinine 0.60 D, Estimated Creat Clear 63, Estimated GFR 97, Est GFR ( Amer) 118 D, Glucose 98, Calcium 8.2 L I & O for Last 24 hours: Intake & Output 03/26/22 03/27/22 03/28/22 03/29/22 23:59 23:59 23:59 23:59 Intake Total 840 / 840 2480 / 2480 863 / 863 480 / 480 Output Total 750 / 750 Balance 90 / 90 2480 / 2480 863 / 863 480 / 480 Weight 81.148 kg 81.14 kg 81.148 kg 81.465 kg Assessment and Plan (1) Atrial fibrillation with rapid ventricular response Status: Acute Category: Medical Code(s): I48.91 - Unspecified atrial fibrillation (2) Hypokalemia Status: Acute Category: Medical Code(s): E87.6 - Hypokalemia (3) Sepsis Status: Acute Qualifiers: Sepsis type: sepsis due to unspecified organism Sepsis acute organ dysfunction status: without acute organ dysfunction Qualified Code(s): A41.9 - Sepsis, unspecified organism Category: Medical Code(s): A41.9 - Sepsis, unspecified organism (4) Total bilirubin, elevated Status: Acute Category: Medical Code(s): R17 - Unspecified jaundice (5) Urinary tract infection Status: Acute Qualifiers: Urinary tract infection type: site unspecified Hematuria presence: without hematuria Qualified Code(s): N39.0 - Urinary tract infection, site not specified Category: Medical Code(s): N39.0 - Urinary tract infection, site not specified The patient's infection will respond to the chosen ABx?: Yes Is the patient receiving the right drug, dose, and route?: Yes Could a more targeted ABx be ordered?: No (E. COLI IN URINE CX. SENSITIVE TO ROCEPHIN. AFEBRILE, WBC WNL. CONT CURRENT)
[2022-03-30] VITALS (8 sets, daily range): BP systolic 108–129; BP diastolic 57–88; PULSE 16–104; RESP 16–17; TEMP 36.4–37.2; O2SAT 93–97; BMI 29.4
--- NOTE | 2022-03-30 06:51 | PC.NURSE ---
pt slept well through the night, pt incontinent of bladder, urine noted to have a strong foul odor, pt a&o to name, place, age, and president, vss, tele reveals atrial fib with controlled rate, no other issues noted
[2022-03-30 07:19] LABS: Anion Gap 10.2 mEq/L (5-15); Blood Urea Nitrogen 12 mg/dl (7-17); Calcium 8.1 mg/dl (8.4-10.2); Carbon Dioxide 28 mmol/L (22.0-30.0); Chloride 104 mmol/L (98-107); Creatinine Clearance Estimated 62 mL/min (50-200); Estimated Glomerular Filt Rate 82 ml/min (>60); GFR (African American) 99 ML/MIN (>60); Glucose 100 mg/dl (74-100); Potassium 4.2 mmoL/L (3.5-5.1); Sodium 138 mmol/L (136-145)
[2022-03-30 07:29] LABS: Basophils # 0.4 K/mm3 (0-0.2); Basophils % 5.1 % (0.1-2.0); Eosinophils # 0.1 K/mm3 (0.0-0.4); Eosinophils % 1.4 % (0.1-12.0); Hematocrit 43.8 % (37.0-47.0); Lymphocytes # 2.1 K/mm3 (0.7-4.5); Lymphocytes % 29.2 % (10-50); Mean Corpuscular HGB Conc 34.3 g/dL (31.8-35.4); Mean Corpuscular Hemoglobin 33.9 pg (27.0-31.2); Mean Corpuscular Volume 98.8 fl (81-99); Mean Platelet Volume 11.3 fl (7.4-10.4); Monocytes # 0.4 K/mm3 (0.1-1.0); Monocytes % 6.2 % (1.7-9.3); Neutrophils # 4.5 K/mm3 (1.8-7.8); Neutrophils % 63.2 % (37.0-80.0); Platelet Count 193 K/mm3 (142-424); Red Blood Count 4.44 M/mm3 (4.20-5.40); Red Cell Distribution Width 13.6 % (11.5-17.5); White Blood Count 7.1 K/mm3 (4.8-10.8)
--- NOTE | 2022-03-30 11:23 | HMH.ACPN2 ---
Internal Medicine - PN: Subj *Date: 03/30/22 *Time: 11:26 Interval history: Patient remains in atrial fib, but rate during the night into the 130s. Patient was confused and agitated during the night, she is clear and lucid this morning. Patient has foul smelling urine, dark. Urine culture is growing a pansensitive E. coli. She remains on IV Rocephin Exam Vital signs and Labs for Last 24 Hours: Temp Pulse Resp BP Pulse Ox 99.0 F 100 H 16 113/57 L 97 03/30/22 08:00 03/30/22 08:10 03/30/22 08:00 03/30/22 08:00 03/30/22 08:00 Laboratory Results - last 24 hr 03/30/22 06:34: WBC 7.1, RBC 4.44, Hgb 15.0, Hct 43.8, MCV 98.8, MCH 33.9 H, MCHC 34.3, RDW 13.6, Plt Count 193 D, MPV 11.3 H, Neut % (Auto) 63.2, Lymph % (Auto) 29.2, [place] % (Auto) 6.2, Eos % (Auto) 1.4, Baso % (Auto) 5.1 H, Neut # (Auto) 4.5, Lymph # (Auto) 2.1, [place] # (Auto) 0.4, Eos # (Auto) 0.1, Baso # (Auto) 0.4 H 03/30/22 06:34: Sodium 138, Potassium 4.2, Chloride 104, Carbon Dioxide 28, Anion Gap 10.2, BUN 12, Creatinine 0.70, Estimated Creat Clear 62, Estimated GFR 82, Est GFR ( Amer) 99, Glucose 100, Calcium 8.1 L I & O for Last 24 hours: Intake & Output 03/27/22 03/28/22 03/29/22 03/30/22 23:59 23:59 23:59 23:59 Intake Total 2480 / 2480 863 / 863 1020 / 1020 Balance 2480 / 2480 863 / 863 1020 / 1020 Weight 178 lb 14.129 oz 178 lb 14.4 oz 179 lb 9.6 oz 176 lb 12.8 oz - Constitutional disheveled, cooperative - *Routine HEENT Exam Head: Present: normocephalic Eye: Present: EOMI, PERRL ENT: Present: mucous membranes moist - *Routine Neck Exam Present: supple. Absent: lymphadenopathy - *Routine Respiratory Exam Present: CTA bilaterally - *Routine Cardiovascular Exam Present: tachycardia, irregular rhythm - *Routine Abdominal Exam Present: soft, normoactive bowel sounds. Absent: tenderness - *Routine Extremities Exam Absent: cyanosis, clubbing, edema - *Routine Skin Exam Present: warm. Absent: rash - *Routine Neurological Exam Present: alert, vision grossly intact, hearing grossly intact Assessment and Plan (1) Atrial fibrillation with rapid ventricular response Status: Acute Category: Medical Code(s): I48.91 - Unspecified atrial fibrillation (2) Hypokalemia Status: Acute Category: Medical Code(s): E87.6 - Hypokalemia (3) Sepsis Status: Acute Qualifiers: Sepsis type: sepsis due to unspecified organism Sepsis acute organ dysfunction status: without acute organ dysfunction Qualified Code(s): A41.9 - Sepsis, unspecified organism Category: Medical Code(s): A41.9 - Sepsis, unspecified organism (4) Total bilirubin, elevated Status: Acute Category: Medical Code(s): R17 - Unspecified jaundice (5) Urinary tract infection Status: Acute Qualifiers: Urinary tract infection type: site unspecified Hematuria presence: without hematuria Qualified Code(s): N39.0 - Urinary tract infection, site not specified Category: Medical Code(s): N39.0 - Urinary tract infection, site not specified - Assessment and plan all Dx Assessment and Plan for all problems:: We will continue IV Rocephin. Onoing rate control with the addition of digoxin.
--- NOTE | 2022-03-30 18:43 | PC.NURSE ---
pt has been more alert and appropriate today. was able to get up to the chair and bed with 1x assist. 1 episode of incontinent bowel. no complaints today. HR has been more stable in upper 80s to 90s range.
[2022-03-31] VITALS: BP 143/70; PULSE 55; PULSE 91; RESP 17; TEMP 36.4; O2SAT 94
[2022-03-31 04:00] VITALS: BP 135/79; PULSE 92; PULSE 97; RESP 16; TEMP 36.7; O2SAT 93
[2022-03-31 05:00] VITALS: BMI 29.9
[2022-03-31 06:29] LABS: Basophils # 0.2 K/mm3 (0-0.2); Basophils % 2.4 % (0.1-2.0); Eosinophils # 0.1 K/mm3 (0.0-0.4); Eosinophils % 1.3 % (0.1-12.0); Hematocrit 42.4 % (37.0-47.0); Hemoglobin 14.6 g/dL (12.2-16.2); Lymphocytes # 1.5 K/mm3 (0.7-4.5); Lymphocytes % 19.9 % (10-50); Mean Corpuscular HGB Conc 34.5 g/dL (31.8-35.4); Mean Corpuscular Hemoglobin 33.5 pg (27.0-31.2); Mean Corpuscular Volume 97.3 fl (81-99); Mean Platelet Volume 8.8 fl (7.4-10.4); Monocytes # 0.4 K/mm3 (0.1-1.0); Monocytes % 5.7 % (1.7-9.3); Neutrophils # 5.3 K/mm3 (1.8-7.8); Neutrophils % 70.7 % (37.0-80.0); Platelet Count 239 K/mm3 (142-424); Red Blood Count 4.36 M/mm3 (4.20-5.40); Red Cell Distribution Width 13.7 % (11.5-17.5); White Blood Count 7.6 K/mm3 (4.8-10.8)
[2022-03-31 06:44] LABS: Anion Gap 7.9 mEq/L (5-15); Blood Urea Nitrogen 9 mg/dl (7-17); Carbon Dioxide 27 mmol/L (22.0-30.0); Chloride 107 mmol/L (98-107); Creatinine Clearance Estimated 62 mL/min (50-200); Estimated Glomerular Filt Rate 82 ml/min (>60); GFR (African American) 99 ML/MIN (>60); Glucose 102 mg/dl (74-100); Potassium 3.9 mmoL/L (3.5-5.1); Sodium 138 mmol/L (136-145)
[2022-03-31 08:00] VITALS: BP 134/85; PULSE 100; PULSE 101; PULSE 106; RESP 21; TEMP 36.8; O2SAT 95
[2022-03-31 08:32] VITALS: PULSE 101
--- NOTE | 2022-03-31 08:56 | HMH.DCSUM ---
General - General Admission date:: 03/25/22 Discharge date: 03/31/22 HPI HPI: 76-year-old female patient presented to the emergency department, reports patient is chronically ill in a wheelchair and has been sitting all day in the wheelchair eating and drinking very little. He reports she has had a loose bowel movement yesterday morning, she denied any nausea or vomiting and is normally incontinent of urine and wears attends. denies any cough or respiratory distress cough and patient did have a temperature in the emergency department. reports she did have an aneurysm and she did have abnormal head CT's in the ED which revealed Postoperative changes. Sizable areas of encephalomalacia bilaterally. Moderate chronic ischemic change. No acuteintracranial abnormality. White blood cell count 17.8, UA reveals 1+ leukocyte esterase, 4+ bacteria, 3+ blood potassium 2.8, irregular heart rate 140s, EKG shows A. fib with RVR 76-year-old female patient resting quietly in bed with eyes open, she is awake, alert, and oriented to name. At present she is unsure where she is or why she is here. She does states she wants to go home, medical condition and the need to stay in the hospital explained to her she verbalized understanding. Diltiazem drip infusing with heart rate of 92, she denies any concerns/needs at present Hospital Course Hospital Course: Abnormal Lab Results 03/31/22 06:18: MCH 33.5 H, Baso % (Auto) 2.4 H 03/31/22 06:18: Glucose 102 H, Calcium 8.0 L Microbiology 03/25/22 15:07 Blood Blood Culture - Final NO GROWTH AFTER 5 DAYS 03/25/22 15:07 Blood Blood Culture - Final NO GROWTH AFTER 5 DAYS 03/25/22 15:14 Urine,Clean Catch Urine Culture - Final Escherichia coli cardiology consult: Assessment and Plan for All Diagnoses:: 1. A. fib with RVR, rate was better on IV diltiazem. Now off IV diltiazem and on combo of BB and digoxin but still with mild RVR. Will reduce lisinopril to 10 mg daily and metoprolol succinate to 50 mg daily. Add diltiazem CD 180 mg daily. Continue digoxin for now but monitor closely on telemetry. Echo EF looks hyperdynamic so diltiazem should help. Continue Xarelto. 2. UTI with sepsis, per PCP 3. Hyponatremia, possibly exacerbated by HCTZ in setting of sepsis. Will hold for now. 4. Hypokalemia, resolved on supplement. CV stable for dc. please send home on following CARDIAC meds Metoprolol Succinate 50mg QD Xarelto 20mg QD Diltiazem 180mg QD Digoxin 125mcg QD Lisinopril 10mg QD Discharge Plan (1) Atrial fibrillation with rapid ventricular response-Onoing rate control with the addition of digoxin,metoprolol succinate 100mg QD,start xarelto 20mg QD Echo 03/26- EF 50-55 mild MR, mild to moderate TR. pressure 42 03/27 Patient remains afib rate 110-120. increased metoprolol to 100mg QD, added digoxin (2) Hypokalemia-replacement,03-27 resolved labs at baseline (3) Sepsis R/t E Coli UTI-improving wbc back to baseline 7.6, completed 7 days of Rocephin (4) Total bilirubin, elevated- pt/inr wnl will monitor out pt (5) Urinary tract infection R/T Escherichia coli, pinon sensitive-completed 7 days of IV Rocephin. will dc to [facility] today for rehab. meds per cardiology recommendations. check cbc and cmp on thursday Objective Vital signs: Temp Pulse Resp BP Pulse Ox 98.2 F 101 H 21 134/85 95 03/31/22 08:00 03/31/22 08:32 03/31/22 08:00 03/31/22 08:00 03/31/22 08:00 no acute distress - *Routine HEENT Exam Head: Present: normocephalic Eye: Present: PERRL ENT: Present: mucous membranes moist - *Routine Neck Exam Present: supple - *Routine Respiratory Exam Present: CTA bilaterally - *Routine Cardiovascular Exam Present: irregular rhythm - *Routine Abdominal Exam Present: soft, normoactive bowel sounds. Absent: tendernes
[2022-03-31 09:41] LABS: Bilirubin,Total 0.5 mg/dl (0.2-1.3)
--- NOTE | 2022-03-31 10:24 | HMH.PNCARD ---
Subjective Date: 03/31/22 Time: 10:24 Principal diagnosis: afib rvr, uti, sepsis Interval history: Nursing staff at bedside assisting patient with bathing. Denies cp or soa. Remains afib rate low 100s. Exam Vital signs and Labs for Last 24 Hours: Temp Pulse Resp BP Pulse Ox 98.2 F 101 H 21 134/85 95 03/31/22 08:00 03/31/22 08:32 03/31/22 08:00 03/31/22 08:00 03/31/22 08:00 Laboratory Results - last 24 hr 03/31/22 06:18: WBC 7.6, RBC 4.36, Hgb 14.6, Hct 42.4, MCV 97.3, MCH 33.5 H, MCHC 34.5, RDW 13.7, Plt Count 239, MPV 8.8, Neut % (Auto) 70.7, Lymph % (Auto) 19.9, [place] % (Auto) 5.7, Eos % (Auto) 1.3, Baso % (Auto) 2.4 H, Neut # (Auto) 5.3, Lymph # (Auto) 1.5, [place] # (Auto) 0.4, Eos # (Auto) 0.1, Baso # (Auto) 0.2 03/31/22 06:18: Sodium 138, Potassium 3.9, Chloride 107, Carbon Dioxide 27, Anion Gap 7.9, BUN 9, Creatinine 0.70, Estimated Creat Clear 62, Estimated GFR 82, Est GFR ( Amer) 99, Glucose 102 H, Calcium 8.0 L 03/31/22 09:19: Total Bilirubin 0.5 I & O for Last 24 hours: Intake & Output 03/28/22 03/29/22 03/30/22 03/31/22 23:59 23:59 23:59 23:59 Intake Total 863 / 863 1020 / 1020 1450 / 1510 500 / 500 Balance 863 / 863 1020 / 1020 1450 / 1510 500 / 500 Weight 178 lb 14.4 oz 179 lb 9.6 oz 176 lb 12.8 oz 179 lb 8 oz Microbiology Reports for the Last 24 Hours: Microbiology 03/25/22 15:07 Blood Blood Culture - Final NO GROWTH AFTER 5 DAYS 03/25/22 15:07 Blood Blood Culture - Final NO GROWTH AFTER 5 DAYS - Constitutional no acute distress - *Routine Respiratory Exam Present: CTA bilaterally - *Routine Cardiovascular Exam Present: irregular rhythm Comments: afib Progress Note: A&P (1) Atrial fibrillation with rapid ventricular response Status: Acute (2) Hypokalemia Status: Acute (3) Sepsis Status: Acute (4) Total bilirubin, elevated Status: Acute (5) Urinary tract infection Status: Acute (6) E. coli UTI (urinary tract infection) Status: Acute Assessment and Plan for All Diagnoses:: Afib/flutter RVR chadsvasc at least a 4 - In the presence of acute sepsis - Rate currently controlled with Dilt drip. BP on low side. Recommend titrating off drip. Add metoprolol succinate 50mg QD - start xarelto 20mg QD - rate control may be hard to achieve in the presence of sepsis. treat underlying sepsis - Echo 03/26- EF 50-55 mild MR, mild to moderate TR. pressure 42 03/27 update- Patient remains afib rate 110-120. will give increast metoprolol to 100mg QD. 03/31- Remains afib rate in low 100s and acceptable Acute sepsis secondary to UTI - Treatment for underlying illness per pcp 03/27- improving wbc today 12.1 03/31 wbc 7.6 Hypokalemia - replacement 03-27 resolved Elevated total bili - Continue to trend, consider ultrasound as needed. CV stable for dc. please send home on following CARDIAC meds Metoprolol Succinate 50mg QD Xarelto 20mg QD Diltiazem 180mg QD Digoxin 125mcg QD Lisinopril 10mg QD Please have patient follow up in office in 2 weeks.
[2022-03-31 10:26] LABS: Coronavirus 19, PCR Not Detected (NotDetected); Influenza A, PCR Not Detected (NotDetected); Influenza B, PCR Not Detected (NotDetected)
[2022-03-31 12:00] VITALS: BP 134/66; PULSE 95; PULSE 99; RESP 20; TEMP 36.6; O2SAT 94
--- NOTE | 2022-03-31 12:23 | PC.NURSE ---
Addendum entered by Radha Murphy RN 03/31/22 12:55: 1250- Pt's ride has arrived. Still awaiting to give report to [facility]. No answer when called. Have tried multiple times. Original Note: 1200- Spoke to pt's and updated on POC. Pt will be going to [facility] via private vehicle. Pt's ride will be at [facility] @ 1300 1227- attempted to call [facility] x4 to give report on pt. No answer any of these times. Will reattempt.
--- NOTE | 2022-03-31 13:32 | PC.NURSE ---
PIV removed. Report called to [facility]. Pt is ready for discharge.
--- NOTE | 2022-04-02 12:12 | CARE MANAGER ---
Spoke with patient's . Patient is in shelter at this time. Discussed with that hopefully she can get a little better, but he was concerned at this time about her not being on antibiotic, but patient completed course while in the hospital. Denies any questions or concerns at this time.
== END 2022-03-31 13:50 | DRG 872 ==
LOC: UTC 13:54 → ER 14:48 → 2ND 17:27
PROVIDERS: Nurse Practitioner Family; Admitting Provider Emergency Medicine; Emergency Provider Emergency Medicine; PCP Family Medicine; Visit Provider Emergency Medicine
DX: A41.51 Sepsis due to Escherichia coli [E. coli] (principal); N39.0 Urinary tract infection, site not specified; E87.1 Hypo-osmolality and hyponatremia; I48.92 Unspecified atrial flutter; I48.91 Unspecified atrial fibrillation; E87.6 Hypokalemia; I10 Essential (primary) hypertension; F17.200 Nicotine dependence, unspecified, uncomplicated
CPT/HCPCS: 36415; 51702; 70450; 71045; 80048; 80053; 81001; 82247; 83605; 83735; 84436; 84443; 84479; 84484; 85007; 85025; 85610; 87040; 87086; 87088; 87186; 93005; 93306; 96375; 97110; 97116; 97162; 97165; 97530; 97535; 99285; C9803; J0696; J2405; U0003; U0005

== ENCOUNTER 2022-05-19 12:00 | Inpatient (IN) | payer MEDICARE, SELFPAY ==
[2022-05-19] VITALS (14 sets, daily range): BP systolic 102–152; BP diastolic 60–117; PULSE 75–108; RESP 18–20; TEMP 36.7–36.8; O2SAT 94–98; BMI 31.7; BMI 31.6; BMI 25.1
--- NOTE | 2022-05-19 12:27 | HMH.EDUTC ---
[facility] [place] Disposition Condition on Discharge: Serious <Bobby Vega - Last Filed: 05/19/22 17:27> Condition on Discharge: Good <Mirlande Marquez - Last Filed: 05/19/22 17:32> Clinical Impression: Weakness, Acute cholecystitis Urinary tract infection Qualifiers: Urinary tract infection type: site unspecified Hematuria presence: without hematuria Qualified Code(s): N39.0 - Urinary tract infection, site not specified Disposition: Admitted As Inpatient Referrals: Arnold Cerna [Primary Care Provider] - Medical Decision Making - Medical Records Medical records reviewed: Yes: I reviewed the patient's medical records. - Lab Data Result diagrams: 05/19/22 12:35 05/19/22 12:35 - CT Data CT Scan: Abdomen, Pelvis Time Received: 17:[address] Reviewed: Yes: I have reviewed the patient's CT results, I have viewed the radiologist's interpretation - Reevaluation(s) Time: 17:28 <Bobby Vega - Last Filed: 05/19/22 17:27> - Venkatesh Inquiry Pt receiving controlled substance: No Venkatesh was queried for this patient: No - Lab Data Result diagrams: 05/19/22 12:35 05/19/22 12:35 <Mirlande Marquez - Last Filed: 05/19/22 17:32> Vital Signs: 05/19/22 12:22 05/19/22 12:29 05/19/22 14:57 Temperature 98.1 F 98.3 F Temperature Source Oral Oral Pulse Rate 90 Pulse Rate [Left] 103 H 107 H Respiratory Rate 19 18 18 Blood Pressure 149/82 H Blood Pressure [Right Arm] 102/60 L 121/62 Blood Pressure Mean 90 Blood Pressure Mean [Right Arm] 74 81 Blood Pressure Source [Right Arm] Automatic Cuff 02 Sat by Pulse Oximetry 95 95 95 Oxygen Delivery Method Room Air Room Air 05/19/22 15:04 05/19/22 15:34 05/19/22 16:04 Temperature Temperature Source Pulse Rate 75 89 102 H Pulse Rate [Left] Respiratory Rate 18 18 Blood Pressure 124/80 114/69 116/74 Blood Pressure [Right Arm] Blood Pressure Mean 88 84 Blood Pressure Mean [Right Arm] Blood Pressure Source [Right Arm] 02 Sat by Pulse Oximetry 96 96 96 Oxygen Delivery Method Room Air 05/19/22 16:34 05/19/22 17:04 Temperature Temperature Source Pulse Rate 108 H 94 H Pulse Rate [Left] Respiratory Rate Blood Pressure 135/73 121/73 Blood Pressure [Right Arm] Blood Pressure Mean Blood Pressure Mean [Right Arm] Blood Pressure Source [Right Arm] 02 Sat by Pulse Oximetry 94 L 96 Oxygen Delivery Method - Lab Data Lab Results 05/19/22 12:35: WBC 7.3, RBC 4.61, Hgb 15.2, Hct 46.1, MCV 100.0 H, MCH 32.9 H, MCHC 32.9, RDW 15.1, Plt Count 195, MPV 9.2, Neut % (Auto) 69.7, Lymph % (Auto) 20.1, [place] % (Auto) 6.8, Eos % (Auto) 2.0, Baso % (Auto) 1.3, Neut # (Auto) 5.1, Lymph # (Auto) 1.5, [place] # (Auto) 0.5, Eos # (Auto) 0.2, Baso # (Auto) 0.1 05/19/22 12:35: Sodium 139, Potassium 3.1 L, Chloride 103, Carbon Dioxide 29, Anion Gap 10.1, BUN 9, Creatinine 0.80, Estimated Creat Clear 74, Estimated GFR 70, Est GFR ( Amer) 85, Glucose 131 H, Calcium 9.1, Total Bilirubin 0.7, AST 27, ALT 19, Alkaline Phosphatase 117, Total Protein 7.3, Albumin 3.8, Globulin 3.5 H, Albumin/Globulin Ratio 1.1, Lipase 26 05/19/22 13:18: Urine Color Yellow, Urine Appearance Clear, Urine pH 6.0, Ur Specific [place] >= 1.030, Urine Protein 1+, Urine Glucose (UA) Negative, Urine Ketones Negative, Urine Blood 2+, Urine Nitrate Positive, Urine Bilirubin 1+ A, Urine Urobilinogen 0.2, Ur Leukocyte Esterase Negative, Urine RBC 20-50, Urine WBC 5-10, Ur Squamous Epith Cells Occasional, Calcium Oxalate Crystal 1+, Urine Bacteria 4+ Orders (Tests/Meds): ED MEDICATIONS Generic Name Dose Route Start Last Admin Trade Name Freq PRN Reason Stop Dose Admin Ceftriaxone Sodium 1 gm/ 50 mls @ 100 mls/hr 05/19/22 14:00 05/19/22 13:57 Sodium Chloride IV 06/02/22 13:59 100 mls/hr Q24H KENDRICK Administration ORDERS Category Date Time Status US gallbladder Routine Exams 05/20/22 06:00 Ordered Diarrhea 23 Panel, PCR Stat Lab 05/19/22 17:09 Ordered
--- NOTE | 2022-05-19 12:39 | PC.NURSE ---
Blood sent to lab. at bedside to assess pt and get hx from pt's .
--- NOTE | 2022-05-19 12:41 | PC.NURSE ---
1239 ED MD AT BEDSIDE TO EVALUATE PT
[2022-05-19 12:52] LABS: Chloride 103 mmol/L (98-107)
[2022-05-19 12:53] LABS: Basophils # 0.1 K/mm3 (0-0.2); Basophils % 1.3 % (0.1-2.0); Eosinophils # 0.2 K/mm3 (0.0-0.4); Hematocrit 46.1 % (37.0-47.0); Hemoglobin 15.2 g/dL (12.2-16.2); Lymphocytes # 1.5 K/mm3 (0.7-4.5); Lymphocytes % 20.1 % (10-50); Mean Corpuscular HGB Conc 32.9 g/dL (31.8-35.4); Mean Corpuscular Hemoglobin 32.9 pg (27.0-31.2); Mean Platelet Volume 9.2 fl (7.4-10.4); Monocytes # 0.5 K/mm3 (0.1-1.0); Monocytes % 6.8 % (1.7-9.3); Neutrophils # 5.1 K/mm3 (1.8-7.8); Neutrophils % 69.7 % (37.0-80.0); Platelet Count 195 K/mm3 (142-424); Potassium 3.1 mmoL/L (3.5-5.1); Red Blood Count 4.61 M/mm3 (4.20-5.40); Red Cell Distribution Width 15.1 % (11.5-17.5); Sodium 139 mmol/L (136-145); White Blood Count 7.3 K/mm3 (4.8-10.8)
[2022-05-19 12:55] LABS: Blood Urea Nitrogen 9 mg/dl (7-17); Creatinine Clearance Estimated 74 mL/min (50-200); Estimated Glomerular Filt Rate 70 ml/min (>60); GFR (African American) 85 ML/MIN (>60)
[2022-05-19 12:56] LABS: Alanine Aminotransferase 19 U/L (12-78); Albumin Level 3.8 g/dl (3.5-5.0); Albumin/Globulin Ratio 1.1 (1.1-1.8); Alkaline Phosphatase 117 U/L (38-126); Anion Gap 10.1 mEq/L (5-15); Aspartate Amino Transferase 27 U/L (14-36); Bilirubin,Total 0.7 mg/dl (0.2-1.3); Calcium 9.1 mg/dl (8.4-10.2); Carbon Dioxide 29 mmol/L (22.0-30.0); Globulin 3.5 g/dL (1.3-3.2); Glucose 131 mg/dl (74-100); Lipase 26 U/L (23-300); Total Protein,Serum 7.3 g/dl (6.3-8.2)
--- NOTE | 2022-05-19 13:15 | PC.NURSE ---
BEDSIDE COMMODE SET-UP, ATTEMPTING TO TO COLLECT URINE SPECIMEN.
--- NOTE | 2022-05-19 13:20 | PC.NURSE ---
UA SENT TO LAB, PT ATTENDS CHANGED, DARREN-[facility]ARE PROVIDED. AT BEDSIDE. NO NEEDS VOICED
[2022-05-19 13:22] LABS: Microscopic, Urine URINE MICROSCOPIC (MICROSCOPIC)
[2022-05-19 13:24] LABS: Appearance,Urine CLEAR (Clear); Blood, Urine 2+ (Negative); Color,Urine YELLOW (Yellow); Glucose,Urine (UA) Negative (Negative); Ketones,Urine Negative (Negative); Leukocyte Esterase,Urine Negative (Negative); Nitrate,Urine POSITIVE (Negative); Protein,Urine 1+ (Negative); Specific Gravity, Urine >= 1.030 (1.005-1.030); Urobilinogen,Urine 0.2 EU/dl (0.2)
[2022-05-19 13:31] LABS: Bilirubin,Urine 1+ (Negative)
[2022-05-19 13:48] LABS: RBC,Urine 20-50 #/hpf (0-3); Squamous Epithelial Cell,Urine Occasional #/hpf (0-5)
[2022-05-19 13:49] LABS: Bacteria,Urine 4+ /lpf; Calcium Oxalate Crystals,Urine 1+ /lpf
--- NOTE | 2022-05-19 13:51 | CT_ITS ---
FINAL REPORT TECHNIQUE: Axial images through the abdomen and pelvis were performed without contrast.This study was performed with techniques to keep radiation doses as low as reasonably achievable, (ALARA). Individualized dose reduction techniques using automated exposure control or adjustment of mA and/or kV according to the patient's size were employed. CLINICAL HISTORY: diarrhea FINDINGS: ABDOMEN: The lung bases are clear. The heart size is normal. The liver is fatty infiltrated. Gallbladder is markedly abnormal with irregular, thickened wall, gallstones and surrounding inflammatory reaction consistent with acute cholecystitis. A low-attenuation region is seen the spleen measuring 4.5 x 2.5 cm which may be related to prior vascular insult. The pancreas is unremarkable. There is bilateral adrenal hyperplasia. The aorta is normal in caliber. There is no nephrolithiasis. There is no hydronephrosis. There is a small umbilical hernia. PELVIS: The appendix is normal. At the floor of the pelvis. The urinary bladder is unremarkable. Calcified phleboliths are seen in the floor of the pelvis. There is no significant free fluid or adenopathy. IMPRESSION: Markedly abnormal gallbladder with wall thickening, stones and surrounding inflammatory reaction highly concerning for acute cholecystitis. Recommend surgical evaluation. Reviewed, Interpreted and Dictated by Og Yuen MD Transcribed by Magda Rivera Authenticated and [facility]
--- NOTE | 2022-05-19 14:00 | PC.NURSE ---
PT TO CT AT THIS TIME PER WHEELCHAIR
--- NOTE | 2022-05-19 14:07 | PC.NURSE ---
PT RETURNED FROM CT
--- NOTE | 2022-05-19 14:10 | PC.NURSE ---
PT REQUESTING LUNCH MD MELISSA OK'D DIET. DIETARY NOTIFIED AT THIS TIME
--- NOTE | 2022-05-19 14:22 | PC.NURSE ---
Food tray brought for pt. Patient asked to sit in chair to eat. assisted pt to chair.
--- NOTE | 2022-05-19 14:42 | PC.NURSE ---
PT TOLERATED REGULAR DIET
--- NOTE | 2022-05-19 15:15 | PC.NURSE ---
rounded on pt at this time, pt sitting up in chair beside the bed, at BS. pt states no needs at this time. will continue to monitor
--- NOTE | 2022-05-19 15:25 | PC.NURSE ---
contacted dr. tran's office per ER request to speak with him. Per BJ she is going to text him and have him call us, states he was recently still in surgery.
--- NOTE | 2022-05-19 16:06 | PC.NURSE ---
PT SITTING UP IN CHAIR, PT AND UPDATED ON PLAN OF CARE, NO NEEDS AT THIS TIME
--- NOTE | 2022-05-19 17:02 | HMH.GSCON ---
*Admission Date: 05/19/22 *Reason for consult:: Gallbladder *History of present illness: Patient is a 76-year-old female from [place]. She is somewhat of a poor historian. 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 Much of the history is obtained from family. She has apparently had a poor appetite for several days. She developed some nausea and vomiting. She had some black liquid diarrhea. This became more concerning and she was brought to the emergency department. There were concerns for possible urinary tract infection as she has 4+ bacteria and positive nitrate with negative leukocyte esterase. She had some mild abdominal pain and underwent CT scan. Somewhat surprisingly this reveals findings of markedly abnormal gallbladder with gallbladder wall thickening, stones, and surrounding inflammatory reaction highly concerning for acute cholecystitis. Surgical consultation was obtained. Review of Systems - Review of Systems Review of systems:: unable to obtain - *Neurologic Reports other (reports not acting herself more confused than normal ) [facility] History I have reviewed the patient's past medical history: Yes Medical History: Reports:: Aneurysm, Hypertension Denies:: Cancer, Diabetes Mellitus Type 1, Diabetes Mellitus Type 2, MRSA *Have you ever received a pneumonia vaccine?: No *Have you received a flu vaccine this season?: Yes Amputation: No Fractures: No - *Social History Smoking Status: Current every day smoker Alcohol Intake: never Alcohol Intake Frequency:: 0-2 drinks per day Substance Use Type: denies use *Occupational Status:: retired Household Members: spouse *Travel in the last 8 weeks: None Family Hx:: Unable to obtain Meds Home Medications Medication Instructions Recorded Confirmed Type Potassium Chloride [Klor-Con 10mEq 10 meq PO DAILY #30 tab 03/31/22 04/10/22 Rx tab] Digoxin [Digoxin 0.125mg Tablet] 125 mcg PO DAILY 05/19/22 05/19/22 History Furosemide [Furosemide 20mg Tab*] 20 mg PO DAILY 05/19/22 05/19/22 History Metoprolol Succinate [Toprol XL 50 mg PO DAILY 05/19/22 05/19/22 History 50mg Tablet] Rivaroxaban [Xarelto 10mg tablet] 20 mg PO QPMWITHMEAL 05/19/22 05/19/22 History dilTIAZem HCL [Cardizem 180mg ER 180 mg PO DAILY 05/19/22 05/19/22 History capsule] lisinopriL [Zestril 10mg Tab] 10 mg PO DAILY 05/19/22 05/19/22 History Allergies Allergy/AdvReac Type Severity Reaction Status Date / Time warfarin [From Coumadin] Allergy Verified 05/19/22 12:26 Exam Vital signs and Labs for Last 24 Hours: Temp Pulse Resp BP Pulse Ox 98.3 F 89 18 114/69 96 05/19/22 12:29 05/19/22 15:34 05/19/22 15:34 05/19/22 15:34 05/19/22 15:34 Laboratory Results - last 24 hr 05/19/22 12:35: WBC 7.3, RBC 4.61, Hgb 15.2, Hct 46.1, MCV 100.0 H, MCH 32.9 H, MCHC 32.9, RDW 15.1, Plt Count 195, MPV 9.2, Neut % (Auto) 69.7, Lymph % (Auto) 20.1, [place] % (Auto) 6.8, Eos % (Auto) 2.0, Baso % (Auto) 1.3, Neut # (Auto) 5.1, Lymph # (Auto) 1.5, [place] # (Auto) 0.5, Eos # (Auto) 0.2, Baso # (Auto) 0.1 05/19/22 12:35: Sodium 139, Potassium 3.1 L, Chloride 103, Carbon Dioxide 29, Anion Gap 10.1, BUN 9, Creatinine 0.80, Estimated Creat Clear 74, Estimated GFR 70, Est GFR ( Amer) 85, Glucose 131 H, Calcium 9.1, Total Bilirubin 0.7, AST 27, ALT 19, Alkaline Phosphatase 117, Total Protein 7.3, Albumin 3.8, Globulin 3.5 H, Albumin/Globulin Ratio 1.1, Lipase 26 05/19/22 13:18: Urine Color Yellow, Urine Appearance Clear, Urine pH 6.0, Ur Specific [place] >= 1.030, Urine Protein 1+, Urine Glucose (UA) Negative, Urine Ketones Negative, Urine Blood 2+, Urine Nitrate Positive, Urine Bilirubin 1+ A, Urine Urobilinogen 0.2, Ur Leukocyte Esterase Negative, Urine RBC 20-50, Urine WBC 5-10, Ur Squamous Epith Cells Occasional, Calcium Oxalate Crystal 1+, Urine Bacteria 4+ I & O for Last 24 hours: Intake & Output 05/17/22 05/18/22 05/19/22 05/20/22 11:59 11:59 11:5
--- NOTE | 2022-05-19 17:18 | PC.NURSE ---
Had registration page Dr Galvez for Dr Falcon
--- NOTE | 2022-05-19 17:19 | PC.NURSE ---
Dr Falcon talking to Dr Galvez.
--- NOTE | 2022-05-19 17:37 | PC.NURSE ---
per house wirer pt will be boarding in ER at this time until a bed becomes available.
--- NOTE | 2022-05-19 17:37 | PC.NURSE ---
FAMILY UPDATED AT THIS TIME ON PLAN OF CARE R/T ADMISSION. NO FURTHER NEEDS AT THIS TIME
--- NOTE | 2022-05-19 17:48 | PC.NURSE ---
Pt admitted to [facility] bed till a patient is dicharged to move up on floor.
--- NOTE | 2022-05-19 18:05 | PC.NURSE ---
Assisted pt back in to bed from chair.
--- NOTE | 2022-05-19 18:12 | PC.NURSE ---
House Called and Pt will be going to Room 206.
[2022-05-19 18:21] LABS: Coronavirus 19, PCR Not Detected (NotDetected); Influenza A, PCR Not Detected (NotDetected); Influenza B, PCR Not Detected (NotDetected)
--- NOTE | 2022-05-19 18:39 | PC.NURSE ---
ATTEMPTED TO GIVE REPORT, ROOM UNAVAILABLE AT THIS TIME.
--- NOTE | 2022-05-19 19:30 | PC.NURSE ---
UNABLE TO CONFIRM MED LIST, PT CONFUSED AND FAMILY NOT AT BEDSIDE
--- NOTE | 2022-05-19 20:05 | PC.NURSE ---
PT ARRIVED TO FLOOR VIA W/C FROM ED W/STAFF @ 2004
[2022-05-20 02:23] LABS: Adenovirus F 40/41, stool Not Detected (NotDetected); Astrovirus Not Detected (NotDetected); Campylobacter Not Detected (NotDetected); Cyclospora Cayetanesis Not Detected (NotDetected); Entamoeba histolytica Not Detected (NotDetected); Enteroaggregative E coli Not Detected (NotDetected); Enteropathogenic E coli Not Detected (NotDetected); Enterotoxigenic E coli Not Detected (NotDetected); Giardia lamblia Not Detected (NotDetected); Norovirus Not Detected (NotDetected); Plesimonas Shigalloides, PCR Not Detected (NotDetected); Rotavirus A Not Detected (NotDetected); Salmonella, PCR Not Detected (NotDetected); Sapovirus Not Detected (NotDetected); Shiga-like toxin E coli Not Detected (NotDetected); Shigella Enterovasive E coli Not Detected (NotDetected); Vibrio Cholerae Not Detected (NotDetected); Vibrio, PCR Not Detected (NotDetected); Yersinia Entercolitica, PCR Not Detected (NotDetected)
[2022-05-20 02:49] LABS: Occult Blood,Stool Negative (Negative)
[2022-05-20 04:00] VITALS: BP 132/78; PULSE 87; RESP 16; TEMP 36.6; O2SAT 98
--- NOTE | 2022-05-20 04:26 | PC.NURSE ---
Addendum entered by Ileana Moore RN 05/20/22 05:18: 0515 Leonor paged new orders to start Metronidazole 500mg q8hrs IV. Patient placed in contact precautions at this time. Addendum entered by Ileana Moore RN 05/20/22 05:09: Lab called critical: patient stool positive for c.diff and cryptosporidium. Patient , name and result repeated back to lab. Patient occult blood was negative. Original Note: Patient admitted to floor to the best of this RN's ability. Patient is a poor historian. Patient is alert to self and place. Patient is confused to situation and time. Patient ambulated to the toilet assist x2 1 liquid BM thus far in shift. Bed alarm on for patient safety. No complaints of abd pain since arriving to floor. Patient is npo for gallbladder US and possibly surgery tomorrow.
[2022-05-20 05:05] LABS: Clostridium Difficile A/B, PCR Detected (NotDetected); Cryptosporidium Detected (NotDetected)
[2022-05-20 05:43] VITALS: BMI 25.2
--- NOTE | 2022-05-20 06:00 | US_ITS ---
FINAL REPORT CLINICAL HISTORY: RUQ pain, NVD, acute cholelithiasis seen on CT scan yesterday FINDINGS: ULTRASOUND RIGHT UPPER QUADRANT Sonographic imaging of the right upper quadrant was obtained. The pancreas is partially obscured. The liver has increased echogenicity consistent with fatty infiltration. The gallbladder is completely impacted with stones and sludge. The gallbladder wall is abnormally thickened at 8 mm. There is no biliary ductal dilatation. The common duct is normal at 2 mm. Limited images of the right kidney are unremarkable. IMPRESSION: Findings are concerning for underlying acute cholecystitis. Reviewed, Interpreted and Dictated by Og Yuen MD Transcribed by Rocio Morillo Authenticated and [facility]
[2022-05-20 07:03] LABS: Basophils # 0.1 K/mm3 (0-0.2); Basophils % 1.4 % (0.1-2.0); Eosinophils # 0.1 K/mm3 (0.0-0.4); Hematocrit 40.6 % (37.0-47.0); Lymphocytes # 1.3 K/mm3 (0.7-4.5); Lymphocytes % 26.6 % (10-50); Mean Corpuscular HGB Conc 33.2 g/dL (31.8-35.4); Mean Corpuscular Hemoglobin 32.5 pg (27.0-31.2); Mean Corpuscular Volume 97.9 fl (81-99); Mean Platelet Volume 8.9 fl (7.4-10.4); Monocytes # 0.4 K/mm3 (0.1-1.0); Monocytes % 8.4 % (1.7-9.3); Neutrophils # 2.9 K/mm3 (1.8-7.8); Neutrophils % 60.7 % (37.0-80.0); Platelet Count 166 K/mm3 (142-424); Red Blood Count 4.15 M/mm3 (4.20-5.40); Red Cell Distribution Width 15.1 % (11.5-17.5); White Blood Count 4.8 K/mm3 (4.8-10.8)
[2022-05-20 07:05] LABS: Hemoglobin 13.5 g/dL (12.2-16.2)
[2022-05-20 07:07] LABS: Chloride 107 mmol/L (98-107); Sodium 138 mmol/L (136-145)
[2022-05-20 07:08] LABS: Potassium 3.1 mmoL/L (3.5-5.1)
[2022-05-20 07:10] LABS: Blood Urea Nitrogen 8 mg/dl (7-17); Creatinine Clearance Estimated 59 mL/min (50-200); Estimated Glomerular Filt Rate 82 ml/min (>60); GFR (African American) 99 ML/MIN (>60)
[2022-05-20 07:11] LABS: Anion Gap 4.1 mEq/L (5-15); Calcium 8.4 mg/dl (8.4-10.2); Carbon Dioxide 30 mmol/L (22.0-30.0); Glucose 109 mg/dl (74-100)
--- NOTE | 2022-05-20 07:21 | HMH.PHAINT ---
verified home medication list using list from [facility]
--- NOTE | 2022-05-20 07:21 | HMH.PHAVTE ---
[facility] Pharm[facility] VTE Monitoring - Patient Demographics Admission date: 05/20/22 Report Date: 05/20/22 Time: 07:21 Allergies/Adverse Reactions: Patient Allergies warfarin [From Coumadin] Allergy (Verified 05/19/22 12:26) Height: 1.75 m Weight: 77.383 kg Patient Problems: Current Active Problems Weakness (Acute) Acute cholecystitis (Acute) Urinary tract infection (Acute) - VTE Risk Labs: VTE Related Lab Results Hgb 13.5 g/dL (12.2-16.2) D 05/20/22 06:50 Hct 40.6 % (37.0-47.0) 05/20/22 06:50 Plt Count 166 K/mm3 (142-424) 05/20/22 06:50 BUN 8 mg/dl (7-17) 05/20/22 06:50 Creatinine 0.70 mg/dl (0.52-1.04) 05/20/22 06:50 Estimated Creat Clear 59 mL/min (50-200) 05/20/22 06:50 Was VTE Risk Assessment Performed: No VTE Score: 3 VTE Risk Level: Low Risk Clinical Trial Participant: No - Prophylaxis VTE Prophylaxis Ordered?: Yes Types of VTE Prophylaxis: TEDS Knee High, Pharmacological Pharmacologic Type: Other (xarelto)
[2022-05-20 08:00] VITALS: BP 145/70; PULSE 91; RESP 14; TEMP 36.8; O2SAT 97
--- NOTE | 2022-05-20 08:12 | HMH.GSPN ---
Subjective Narrative: Patient more alert this morning. Stool studies sent due to significant diarrhea this is positive for Cryptosporidium and C. difficile colitis. Progress Note: A&P Assessment and Plan for All Diagnoses:: Gallbladder ultrasound. Due to the C. difficile and Cryptosporidium and stool likely hold on immediate gallbladder. Exam Vital signs and Labs for Last 24 Hours: Temp Pulse Resp BP Pulse Ox 97.8 F 87 16 132/78 98 05/20/22 04:00 05/20/22 04:00 05/20/22 04:00 05/20/22 04:00 05/20/22 04:00 Laboratory Results - last 24 hr 05/19/22 12:35: WBC 7.3, RBC 4.61, Hgb 15.2, Hct 46.1, MCV 100.0 H, MCH 32.9 H, MCHC 32.9, RDW 15.1, Plt Count 195, MPV 9.2, Neut % (Auto) 69.7, Lymph % (Auto) 20.1, [place] % (Auto) 6.8, Eos % (Auto) 2.0, Baso % (Auto) 1.3, Neut # (Auto) 5.1, Lymph # (Auto) 1.5, [place] # (Auto) 0.5, Eos # (Auto) 0.2, Baso # (Auto) 0.1 05/19/22 12:35: Sodium 139, Potassium 3.1 L, Chloride 103, Carbon Dioxide 29, Anion Gap 10.1, BUN 9, Creatinine 0.80, Estimated Creat Clear 74, Estimated GFR 70, Est GFR ( Amer) 85, Glucose 131 H, Calcium 9.1, Total Bilirubin 0.7, AST 27, ALT 19, Alkaline Phosphatase 117, Total Protein 7.3, Albumin 3.8, Globulin 3.5 H, Albumin/Globulin Ratio 1.1, Lipase 26 05/19/22 13:18: Urine Color Yellow, Urine Appearance Clear, Urine pH 6.0, Ur Specific [place] >= 1.030, Urine Protein 1+, Urine Glucose (UA) Negative, Urine Ketones Negative, Urine Blood 2+, Urine Nitrate Positive, Urine Bilirubin 1+ A, Urine Urobilinogen 0.2, Ur Leukocyte Esterase Negative, Urine RBC 20-50, Urine WBC 5-10, Ur Squamous Epith Cells Occasional, Calcium Oxalate Crystal 1+, Urine Bacteria 4+ 05/19/22 18:14: SARS-CoV-2 (PCR) Not detected, Influenza A Untype (PCR) Not detected, Influenza Type B (PCR) Not detected 05/20/22 02:12: Stl Aeromonas (PCR) Not detected, Stl C. cayetanensis PCR Not detected, Stool Rotavirus (PCR) Not detected, Stl Adenov F 40/41 PCR Not detected, Stool Astrovirus (PCR) Not detected, Stool Campylobacter PCR Not detected, Stl C.difficile Tox PCR Detected A, Stool Cryptosporidium PCR Detected A, Stl E.coli Shiga Tox PCR Not detected, Stool E coli O157 PCR Not detected, Stl Enterotoxigenic E PCR Not detected, Stool EPEC (PCR) Not detected, Stool EAEC (PCR) Not detected, Stl E. histolytica PCR Not detected, Stool Giardia Lamblia PCR Not detected, Stool Salmonella PCR Not detected, Stool Sapovirus (PCR) Not detected, Stl P. shigelloides PCR Not detected, Stl Shigella/EIEC PCR Not detected, St Y.enterocolitica PCR Not detected, Stool Vibrio (PCR) Not detected, Stl Vibrio cholerae PCR Not detected, Stl Norovirus GI/GII PCR Not detected 05/20/22 02:12: Stool Occult Blood Negative 05/20/22 06:50: WBC 4.8 D, RBC 4.15 L, Hgb 13.5 D, Hct 40.6, MCV 97.9, MCH 32.5 H, MCHC 33.2, RDW 15.1, Plt Count 166, MPV 8.9, Neut % (Auto) 60.7, Lymph % (Auto) 26.6, [place] % (Auto) 8.4, Eos % (Auto) 3.0, Baso % (Auto) 1.4, Neut # (Auto) 2.9, Lymph # (Auto) 1.3, [place] # (Auto) 0.4, Eos # (Auto) 0.1, Baso # (Auto) 0.1 05/20/22 06:50: Sodium 138, Potassium 3.1 L, Chloride 107, Carbon Dioxide 30, Anion Gap 4.1 L, BUN 8, Creatinine 0.70, Estimated Creat Clear 59, Estimated GFR 82, Est GFR ( Amer) 99, Glucose 109 H, Calcium 8.4 I & O for Last 24 hours: Intake & Output 05/17/22 05/18/22 05/19/22 05/20/22 11:59 11:59 11:59 11:59 Intake Total 427 / 427 Balance 427 / 427 Weight 170 lb 9.6 oz Microbiology Reports for the Last 24 Hours: Microbiology 05/19/22 13:18 Urine,Clean Catch Urine Culture - Preliminary Gram Negative Rods - *Routine Abdominal Exam Present: soft, tenderness Comments: Some tenderness in the right upper quadrant
--- NOTE | 2022-05-20 08:13 | HMH.HP ---
*Admission Date: 05/20/22 <Shanelle Smith - 05/20/22 08:26> *Chief complaint: Diarrhea with nausea and vomiting <Shanelle Smith - 05/20/22 08:26> *History of present illness: Patient is a poor historian. She notes that she did have diarrhea with nausea and vomiting for the previous 4 days. Her gave her some Pepto-Bismol yesterday. She has had no further diarrhea since admission. She denies abdominal pain and nausea this morning. ER note as follows: On reevaluation, the patient is feeling better. CT findings are concerning for acute cholecystitis. The patient's abdominal examination does not show any evidence of acute abdomen. No leukocytosis. Hemodynamically stable. We did start the patient on antibiotics for UTI as well as acute cholecystitis. General surgery was consulted. Patient be admitted to hospital for further evaluation and treatment. (Bobby Vega) Medical Decision Narrative: talking with patient and she was not answering appropriately states that she has been more confused than normal and not acting herself States that she does have hx of brain aneurysm and UTI that sometimes causes this and has been septic due to UTI, states that she hasnt been able to keep anything down with N/V/D and diarrhea dark in color worried it may have blood in it but states that her color is bad and he was worried so he brought her in Spoke with and due to patient complaints recommended transfer to the ED for further work up and evaluation and agreed Called ED spoke with [facility] and patient was moved to room 7 (Mirlande Marquez) Patient was also seen by surgeon, Dr. Maki, with the following documentation: Assessment and Plan for all problems:: I reviewed her CT scan. This does reveal markedly abnormal gallbladder with almost phlegmon type formation in the surrounding tissues. Presently the patient does not appear as ill as would be expected based on the imaging findings. Recommend admission for IV fluids and antibiotics. Plan for definitive gallbladder ultrasound. May need cardiology evaluation given her history of rapid atrial fibrillation recently. Send stool studies. Documented By: Bryan Maki MD 05/19/22 [id number] This a.m. patient denies chest pain, shortness of breath, nausea, and abdominal pain. She does not recall having any further diarrhea stools. In the emergency room she was felt to have a UTI. She was started on Rocephin IV.SHe had a CT of the abdomen which which revealed markedly abnormal gallbladder with wall thickening, stones, and surrounding inflammatory reaction highly concerning for acute cholecystitis. Stool panel shows C. difficile and Cryptosporidium. Labs this morning show hypokalemia with potassium of 3.1. Renal function is good. White blood cell has remained normal with a hemoglobin of 13.5 and hematocrit of 40.6 this a.m. <Shanelle Smith 05/20/22 08:26> [facility] History Medical History: Reports:: Aneurysm (brain), Atrial Fibrillation, Dementia, Hypertension Denies:: Cancer, Diabetes Mellitus Type 1, Diabetes Mellitus Type 2, Gastroesophageal Reflux Disease(GERD), MRSA <Shanelle Smith 05/20/22 08:26> *Have you ever received a pneumonia vaccine?: Yes <Shanelle Smith 05/20/22 08:26> *Have you received a flu vaccine this season?: No <Shanelle Smith 05/20/22 08:26> Amputation: No <Shanelle Smith 05/20/22 08:26> Fractures: No <Shanelle Smith 05/20/22 08:26> - *Social History Smoking Status: Current every day smoker <Shanelle Smith 05/20/22 08:26> Tobacco Type: cigarettes <Shanelle Smith 05/20/22 08:26> # Packs/Day (cigarettes): 2 <Shanelle Smith 05/20/22 08:26> Alcohol Intake: never <Shanelle Smith 05/20/22 08:26> Alcohol Intake Frequency:: 0-2 drinks per day <Shanelle Smith 05/20/22 08:26> Substance Use Type: denies use <Shanelle Smith 05/20/22 08:26> *Occupational Status:: retired <Shanelle Smith 05/09
--- NOTE | 2022-05-20 09:36 | ECG_ITS ---
APPROVED REPORT Exam: Resting ECG HR:92 bpm ECG Measurements Heart Rate 92 AXES QRSd 93 QRS 1 QT 328 T 30 QTc 378 Conclusion ATRIAL FIBRILLATION WITH ABERRANT CONDUCTION OR VENTRICULAR PREMATURE COMPLEXES INCOMPLETE RIGHT BUNDLE BRANCH BLOCK [90+ ms QRS DURATION, TERMINAL R IN V1/V2, 40+ ms S IN I/aVL/V4/V5/V6] MODERATE ST DEPRESSION [0.05+ mV ST DEPRESSION] ABNORMAL ECG UNCONFIRMED REPORT Electronically signed by : Marcial Alfonso MD 05/21/2022 17:58:31
[2022-05-20 09:52] VITALS: PULSE 91
--- NOTE | 2022-05-20 10:54 | PC.NURSE ---
called md office about how one of patient medications required to be taken with food, however patient is currently npo. md stated to give patient a snack so she could take the medication. patient provided with apple sauce.
--- NOTE | 2022-05-20 13:51 | PC.NURSE ---
patient has done well. has not had any complaints of pain. did have some diarrhea this shift, no noted discomfort of abdomen. new iv placed in r arm. did note patient has skin tear to r calf after attempting to stand and getting leg caught on bars on her chair. steri strips placed. did eat applesauce at beginning of shift and tolerated well. lungs clear. incontinent of bowel and bladder. education done with family and patient about diagnosis and plan of care.
--- NOTE | 2022-05-20 14:08 | PC.NURSE ---
spoke with nurse in md office. per tedransabas note patient would not be having any immediate gallbladder procedure. they stated that patient could have a low fat diet.
[2022-05-20 15:39] VITALS: BP 110/59; PULSE 80; RESP 16; TEMP 36.8; O2SAT 95
--- NOTE | 2022-05-20 18:54 | PC.NURSE ---
since resuming care of this pt, she has done well. Pt up to the chair majority of this afternoon. Pt standby assist to and from bathroom. Pt has had x1 BM this evening. No other acute changes.
[2022-05-20 20:00] VITALS: BP 116/76; PULSE 79; RESP 16; TEMP 36.9; O2SAT 95
[2022-05-21 04:00] VITALS: BP 121/74; PULSE 102; RESP 16; TEMP 36.4; O2SAT 96
[2022-05-21 04:29] VITALS: BMI 25.4
--- NOTE | 2022-05-21 05:36 | PC.NURSE ---
shift summary: pt has slept intermittantly t/o the night. pt has had periods of confusion. pt incontinent of bowel and bladder. pt has had no complaints. pt up to chair at this time. pt is max assist from bed to chair. safety device in place.
--- NOTE | 2022-05-21 07:46 | HMH.ACPN2 ---
Internal Medicine - PN: Subj *Date: 05/21/22 *Time: 07:46 Interval history: Patient with no new complaints today. She reports several diarrhea bowel movements overnight. Exam Vital signs and Labs for Last 24 Hours: Temp Pulse Resp BP Pulse Ox 97.6 F 102 H 16 121/74 96 05/21/22 04:00 05/21/22 04:00 05/21/22 04:00 05/21/22 04:00 05/21/22 04:00 Laboratory Results - last 24 hr 05/19/22 13:18: Urine Color Yellow, Urine Appearance Clear, Urine pH 6.0, Ur Specific [place] >= 1.030, Urine Protein 1+, Urine Glucose (UA) Negative, Urine Ketones Negative, Urine Blood 2+, Urine Nitrate Positive, Urine Bilirubin 1+ A, Urine Urobilinogen 0.2, Ur Leukocyte Esterase Negative, Urine RBC 20-50, Urine WBC 5-10, Ur Squamous Epith Cells Occasional, Calcium Oxalate Crystal 1+, Urine Bacteria 4+ Vital Signs - 24 hr 05/20/22 08:00 05/20/22 09:52 05/20/22 15:39 Temperature 98.3 F 98.2 F Pulse Rate 91 H Pulse Rate [Left] 91 H 80 Respiratory Rate 14 16 Blood Pressure [Right Arm] 145/70 H 110/59 L 02 Sat by Pulse Oximetry 97 95 05/20/22 20:00 05/21/22 04:00 Temperature 98.5 F 97.6 F Pulse Rate Pulse Rate [Left] 79 102 H Respiratory Rate 16 16 Blood Pressure [Right Arm] 116/76 121/74 02 Sat by Pulse Oximetry 95 96 I & O for Last 24 hours: Intake & Output 05/18/22 05/19/22 05/20/22 05/21/22 23:59 23:59 23:59 23:59 Intake Total 547 / 547 2043 Output Total 0 / 0 Balance 547 / 547 2043 Weight 169 lb 14.4 oz 170 lb 9.6 oz 172 lb 4 oz Microbiology Reports for the Last 24 Hours: Microbiology 05/19/22 13:18 Urine,Clean Catch Urine Culture - Final Enterobacter cloacae - Constitutional no acute distress - *Routine HEENT Exam Head: Present: normocephalic Eye: Present: EOMI, PERRL ENT: Present: mucous membranes moist - *Routine Neck Exam Present: supple. Absent: lymphadenopathy - *Routine Respiratory Exam Present: CTA bilaterally - *Routine Cardiovascular Exam Present: RRR - *Routine Abdominal Exam Present: soft, normoactive bowel sounds, tenderness (minimal periumbilical tenderness to palpation) - *Routine Extremities Exam Absent: cyanosis, clubbing, edema - *Routine Skin Exam Present: warm. Absent: rash - *Routine Neurological Exam Present: alert Assessment and Plan (1) Acute cholecystitis Status: Acute Category: Medical Code(s): K81.0 - Acute cholecystitis (2) Urinary tract infection Status: Acute Qualifiers: Urinary tract infection type: site unspecified Hematuria presence: without hematuria Qualified Code(s): N39.0 - Urinary tract infection, site not specified Category: Medical Code(s): N39.0 - Urinary tract infection, site not specified (3) Hypokalemia Status: Acute Category: Medical Code(s): E87.6 - Hypokalemia (4) C. 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 (6) Mild cognitive impairment Status: Acute Category: Medical Code(s): G31.84 - Mild cognitive impairment, so stated (7) Atrial fibrillation Status: Acute Qualifiers: Atrial fibrillation type: unspecified Qualified Code(s): I48.91 - Unspecified atrial fibrillation Category: Medical Code(s): I48.91 - Unspecified atrial fibrillation (8) History of cerebral aneurysm Status: Acute Category: Medical Code(s): Z86.79 - Personal history of other diseases of the circulatory system - Assessment and plan all Dx Assessment and Plan for all problems:: Morning labs pending, continue current care.
[2022-05-21 08:00] VITALS: BP 122/75; PULSE 98; RESP 18; TEMP 36.4; O2SAT 98
[2022-05-21 08:10] LABS: Basophils # 0.1 K/mm3 (0-0.2); Basophils % 1.6 % (0.1-2.0); Eosinophils # 0.1 K/mm3 (0.0-0.4); Eosinophils % 2.3 % (0.1-12.0); Hematocrit 41.7 % (37.0-47.0); Hemoglobin 13.9 g/dL (12.2-16.2); Lymphocytes # 1.2 K/mm3 (0.7-4.5); Lymphocytes % 22.4 % (10-50); Mean Corpuscular HGB Conc 33.4 g/dL (31.8-35.4); Mean Corpuscular Hemoglobin 33.4 pg (27.0-31.2); Mean Platelet Volume 8.9 fl (7.4-10.4); Monocytes # 0.3 K/mm3 (0.1-1.0); Monocytes % 5.1 % (1.7-9.3); Neutrophils # 3.7 K/mm3 (1.8-7.8); Neutrophils % 68.6 % (37.0-80.0); Platelet Count 177 K/mm3 (142-424); Red Blood Count 4.17 M/mm3 (4.20-5.40); White Blood Count 5.3 K/mm3 (4.8-10.8)
--- NOTE | 2022-05-21 08:15 | P.PN_ITS ---
Subjective Patient reports: no new complaints Progress Note: A&P (1) Acute cholecystitis Status: Acute Assessment and plan: The patient's radiographic anomalies may represent acute cholecystitis; however, severe chronic cholecystitis remains a possibility. The acute signs/symptoms leading to hospitalization may be secondary to colitis/enterocolitis as opposed to acute cholecystitis. Continued evaluation warranted. She will be made NPO after midnight awaiting reevaluation in the morning by Dr. Maki for further consideration of cholecystectomy (warranted if she develops increasing symptomatology most consistent with cholecystitis). (2) Urinary tract infection Status: Acute (3) Hypokalemia Status: Acute (4) C. difficile colitis Status: Acute (5) Cryptosporidial gastroenteritis Status: Acute (6) Mild cognitive impairment Status: Acute (7) Atrial fibrillation Status: Acute (8) History of cerebral aneurysm Status: Acute Exam Vital signs and Labs for Last 24 Hours: Temp Pulse Resp BP Pulse Ox 97.6 F 102 H 16 121/74 96 05/21/22 04:00 05/21/22 04:00 05/21/22 04:00 05/21/22 04:00 05/21/22 04:00 Laboratory Results - last 24 hr 05/21/22 08:02: WBC 5.3, RBC 4.17 L, Hgb 13.9, Hct 41.7, MCV 100.0 H, MCH 33.4 H , MCHC 33.4, RDW 15.0, Plt Count 177, MPV 8.9, Neut % (Auto) 68.6, Lymph % (Auto) 22.4, [place] % (Auto) 5.1, Eos % (Auto) 2.3, Baso % (Auto) 1.6, Neut # (Auto) 3.7, Lymph # (Auto) 1.2, [place] # (Auto) 0.3, Eos # (Auto) 0.1, Baso # (Auto) 0.1 I & O for Last 24 hours: Intake & Output 05/18/22 05/19/22 05/20/22 05/21/22 11:59 11:59 11:59 11:59 Intake Total 427 / 427 2164 / 2164 Output Total 0 / 0 Balance 427 / 427 2164 / 2164 Weight 170 lb 9.6 oz 172 lb 4 oz Microbiology Reports for the Last 24 Hours: Microbiology 05/19/22 13:18 Urine,Clean Catch Urine Culture - Final Enterobacter cloacae - Constitutional no acute distress - *Routine Respiratory Exam Absent: respiratory distress - *Routine Cardiovascular Exam Comments: Mildly tachycardic - *Routine Abdominal Exam Present: soft
[2022-05-21 08:20] LABS: Chloride 110 mmol/L (98-107); Potassium 3.6 mmoL/L (3.5-5.1); Sodium 140 mmol/L (136-145)
[2022-05-21 08:23] LABS: Anion Gap 9.6 mEq/L (5-15); Blood Urea Nitrogen 4 mg/dl (7-17); Calcium 8.7 mg/dl (8.4-10.2); Carbon Dioxide 24 mmol/L (22.0-30.0); Creatinine Clearance Estimated 60 mL/min (50-200); Estimated Glomerular Filt Rate 82 ml/min (>60); GFR (African American) 99 ML/MIN (>60); Glucose 140 mg/dl (74-100)
[2022-05-21 08:26] VITALS: PULSE 90
[2022-05-21 08:44] VITALS: O2SAT 98
[2022-05-21 11:34] VITALS: BMI 25.4
--- NOTE | 2022-05-21 14:22 | PC.NURSE ---
rounded on patient. at bedside. educated on cdiff and cdiff precautions especially at home. proper hand hygiene and washing surfaces with bleach. educated over plan of care. no questions in regards to medications. patient states she is still having frequent bowel movements. no complaints or concerns. sitting up eating lunch and tolerating that well. encouraged family and patient to let us know if they have any more questions or concerns.
[2022-05-21 15:34] VITALS: BP 120/67; PULSE 84; RESP 18; TEMP 36.6; O2SAT 96
--- NOTE | 2022-05-21 15:48 | PC.WOUNDNOTE ---
skin tear to r lower calf excoriation groin excoriation
--- NOTE | 2022-05-21 18:09 | PC.NURSE ---
Patient confused to time and situation. VS stable and patient remained on room air. No complaints noted from patient and iv antibiotics given.
[2022-05-21 20:00] VITALS: BP 105/66; PULSE 77; RESP 18; TEMP 36.7; O2SAT 96
[2022-05-22 04:00] VITALS: BP 112/75; PULSE 102; RESP 20; TEMP 36.6; O2SAT 98
[2022-05-22 05:00] VITALS: BMI 25.9
--- NOTE | 2022-05-22 06:15 | PC.NURSE ---
Pt alert x4 but does get confused at times. Pt has been very irritable with staff t/o shift. Pt has denied having pain/n/v. Pt has had 2 liquid BMs t/o shift. Call light within reach.
[2022-05-22 06:38] LABS: Basophils # 0.1 K/mm3 (0-0.2); Basophils % 1.6 % (0.1-2.0); Chloride 113 mmol/L (98-107); Eosinophils # 0.1 K/mm3 (0.0-0.4); Eosinophils % 2.4 % (0.1-12.0); Hematocrit 40.2 % (37.0-47.0); Lymphocytes # 1.2 K/mm3 (0.7-4.5); Lymphocytes % 27.6 % (10-50); Mean Corpuscular HGB Conc 32.4 g/dL (31.8-35.4); Mean Corpuscular Volume 102.1 fl (81-99); Mean Platelet Volume 9.1 fl (7.4-10.4); Monocytes # 0.3 K/mm3 (0.1-1.0); Monocytes % 6.1 % (1.7-9.3); Neutrophils # 2.8 K/mm3 (1.8-7.8); Neutrophils % 62.2 % (37.0-80.0); Platelet Count 161 K/mm3 (142-424); Potassium 4.1 mmoL/L (3.5-5.1); Red Blood Count 3.94 M/mm3 (4.20-5.40); Sodium 140 mmol/L (136-145); White Blood Count 4.5 K/mm3 (4.8-10.8)
[2022-05-22 06:41] LABS: Blood Urea Nitrogen 5 mg/dl (7-17); Creatinine Clearance Estimated 61 mL/min (50-200); Estimated Glomerular Filt Rate 82 ml/min (>60); GFR (African American) 99 ML/MIN (>60)
[2022-05-22 06:42] LABS: Anion Gap 7.1 mEq/L (5-15); Calcium 8.3 mg/dl (8.4-10.2); Carbon Dioxide 24 mmol/L (22.0-30.0); Glucose 103 mg/dl (74-100)
--- NOTE | 2022-05-22 07:27 | HMH.GSPN ---
Subjective Narrative: Patient states that she has continued to have diarrhea. No other significant complaints. Progress Note: A&P (1) Acute cholecystitis Status: Acute (2) Urinary tract infection Status: Acute (3) Hypokalemia Status: Acute (4) C. difficile colitis Status: Acute (5) Cryptosporidial gastroenteritis Status: Acute (6) Mild cognitive impairment Status: Deleted (7) Atrial fibrillation Status: Acute (8) History of cerebral aneurysm Status: Acute Assessment and Plan for All Diagnoses:: Patient has several issues seemingly unrelated. Her enterocolitis is likely what prompted seeking medical attention. However she does have some evidence of acute cholecystitis on imaging. This may be chronic underlying significant Addendum: Consideration and plans were being made for cholecystectomy today. However the patient has received Xarelto yesterday evening. The surgery will be canceled. Hold today Xarelto. Possible surgery tomorrow morning. Exam Vital signs and Labs for Last 24 Hours: Temp Pulse Resp BP Pulse Ox 97.8 F 102 H 20 112/75 98 05/22/22 04:00 05/22/22 04:00 05/22/22 04:00 05/22/22 04:00 05/22/22 04:00 Laboratory Results - last 24 hr 05/21/22 08:02: WBC 5.3, RBC 4.17 L, Hgb 13.9, Hct 41.7, MCV 100.0 H, MCH 33.4 H, MCHC 33.4, RDW 15.0, Plt Count 177, MPV 8.9, Neut % (Auto) 68.6, Lymph % (Auto) 22.4, [place] % (Auto) 5.1, Eos % (Auto) 2.3, Baso % (Auto) 1.6, Neut # (Auto) 3.7, Lymph # (Auto) 1.2, [place] # (Auto) 0.3, Eos # (Auto) 0.1, Baso # (Auto) 0.1 05/21/22 08:02: Sodium 140, Potassium 3.6, Chloride 110 H, Carbon Dioxide 24, Anion Gap 9.6, BUN 4 L D, Creatinine 0.70, Estimated Creat Clear 60, Estimated GFR 82, Est GFR ( Amer) 99, Glucose 140 H, Calcium 8.7 05/22/22 06:07: WBC 4.5 L, RBC 3.94 L, Hgb 13.0, Hct 40.2, MCV 102.1 H, MCH 33.0 H, MCHC 32.4, RDW 15.0, Plt Count 161, MPV 9.1, Neut % (Auto) 62.2, Lymph % (Auto) 27.6, [place] % (Auto) 6.1, Eos % (Auto) 2.4, Baso % (Auto) 1.6, Neut # (Auto) 2.8, Lymph # (Auto) 1.2, [place] # (Auto) 0.3, Eos # (Auto) 0.1, Baso # (Auto) 0.1 05/22/22 06:07: Sodium 140, Potassium 4.1, Chloride 113 H, Carbon Dioxide 24, Anion Gap 7.1, BUN 5 L, Creatinine 0.70, Estimated Creat Clear 61, Estimated GFR 82, Est GFR ( Amer) 99, Glucose 103 H D, Calcium 8.3 L I & O for Last 24 hours: Intake & Output 05/19/22 05/20/22 05/21/22 05/22/22 11:59 11:59 11:59 11:59 Intake Total 427 / 427 2164 / 2164 1579 / 1579 Output Total 0 / 0 Balance 427 / 427 2164 / 2164 1579 / 1579 Weight 170 lb 9.6 oz 172 lb 3.954 oz 175 lb 6.4 oz Microbiology Reports for the Last 24 Hours: Microbiology 05/19/22 13:18 Urine,Clean Catch Urine Culture - Final Enterobacter cloacae - *Routine Abdominal Exam Present: soft Comments: Some tenderness in the right upper quadrant.
[2022-05-22 08:00] VITALS: BP 142/84; PULSE 90; RESP 16; TEMP 36.9; O2SAT 96
--- NOTE | 2022-05-22 09:19 | HMH.ACPN2 ---
Internal Medicine - PN: Subj *Date: 05/22/22 *Time: 09:19 Interval history: Patient had a couple of bowel movements overnight. She has some RUQ pain this morning. Exam Vital signs and Labs for Last 24 Hours: Temp Pulse Resp BP Pulse Ox 98.5 F 90 16 142/84 H 96 05/22/22 08:00 05/22/22 08:00 05/22/22 08:00 05/22/22 08:00 05/22/22 08:00 Laboratory Results - last 24 hr 05/22/22 06:07: WBC 4.5 L, RBC 3.94 L, Hgb 13.0, Hct 40.2, MCV 102.1 H, MCH 33.0 H, MCHC 32.4, RDW 15.0, Plt Count 161, MPV 9.1, Neut % (Auto) 62.2, Lymph % (Auto) 27.6, [place] % (Auto) 6.1, Eos % (Auto) 2.4, Baso % (Auto) 1.6, Neut # (Auto) 2.8, Lymph # (Auto) 1.2, [place] # (Auto) 0.3, Eos # (Auto) 0.1, Baso # (Auto) 0.1 05/22/22 06:07: Sodium 140, Potassium 4.1, Chloride 113 H, Carbon Dioxide 24, Anion Gap 7.1, BUN 5 L, Creatinine 0.70, Estimated Creat Clear 61, Estimated GFR 82, Est GFR ( Amer) 99, Glucose 103 H D, Calcium 8.3 L Vital Signs - 24 hr 05/21/22 15:34 05/21/22 20:00 05/22/22 04:00 Temperature 97.8 F 98.0 F 97.8 F Pulse Rate [Left] 84 77 102 H Respiratory Rate 18 18 20 Blood Pressure [Right Arm] 120/67 105/66 L 112/75 02 Sat by Pulse Oximetry 96 96 98 05/22/22 08:00 Temperature 98.5 F Pulse Rate [Left] 90 Respiratory Rate 16 Blood Pressure [Right Arm] 142/84 H 02 Sat by Pulse Oximetry 96 I & O for Last 24 hours: Intake & Output 05/19/22 05/20/22 05/21/22 05/22/22 23:59 23:59 23:59 23:59 Intake Total 547 / 547 2994 / 2994 629 / 629 Output Total 0 / 0 Balance 547 / 547 2994 / 2994 629 / 629 Weight 169 lb 14.4 oz 170 lb 9.6 oz 172 lb 3.954 oz 175 lb 6.4 oz Microbiology Reports for the Last 24 Hours: Microbiology 05/19/22 13:18 Urine,Clean Catch Urine Culture - Final Enterobacter cloacae - Constitutional no acute distress - *Routine HEENT Exam Head: Present: normocephalic Eye: Present: EOMI, PERRL ENT: Present: mucous membranes moist - *Routine Neck Exam Present: supple. Absent: lymphadenopathy - *Routine Respiratory Exam Present: CTA bilaterally - *Routine Cardiovascular Exam Present: RRR - *Routine Abdominal Exam Present: soft, normoactive bowel sounds, tenderness (RUQ) - *Routine Extremities Exam Absent: cyanosis, clubbing, edema - *Routine Skin Exam Present: warm. Absent: rash - *Routine Neurological Exam Present: alert Assessment and Plan (1) Acute cholecystitis Status: Acute Category: Medical Code(s): K81.0 - Acute cholecystitis (2) Urinary tract infection Status: Acute Qualifiers: Urinary tract infection type: site unspecified Hematuria presence: without hematuria Qualified Code(s): N39.0 - Urinary tract infection, site not specified Category: Medical Code(s): N39.0 - Urinary tract infection, site not specified (3) Hypokalemia Status: Acute Category: Medical Code(s): E87.6 - Hypokalemia (4) C. 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 She is now more symptomatic of her cholecystitis. She will likely need surgery during this admission. Discussed with Dr. Maki and patient and her .
[2022-05-22 10:08] VITALS: PULSE 90
--- NOTE | 2022-05-22 10:36 | PC.NURSE ---
Rounded on pt, cleaned and straightened room. Pt is currently sleeping. Npo at this time.
--- NOTE | 2022-05-22 13:33 | PC.NURSE ---
patient is up to chair. no needs or concerns voiced at this time. no questions. call light within reach chair alarm on.
[2022-05-22 15:37] VITALS: BP 128/69; PULSE 77; RESP 18; TEMP 36.8; O2SAT 96
--- NOTE | 2022-05-22 15:38 | PC.NURSE ---
Pt is A/O, but has stages of confusion. She has had a few liquid stools on shift currently. No changes since last assessment. She was placed on a clear diet since she was not able to go to surgery. She has tolerated diet well.
[2022-05-22 20:00] VITALS: BP 132/75; PULSE 83; RESP 16; TEMP 36.7; O2SAT 95
[2022-05-23] VITALS (25 sets, daily range): BP systolic 98–172; BP diastolic 51–81; PULSE 80–135; RESP 16–24; TEMP 36.3–43; O2SAT 91–99; BMI 24.9
--- NOTE | 2022-05-23 06:08 | PC.NURSE ---
PT LEFT FLOOR VIA BED TO OR A THIS TIME
--- NOTE | 2022-05-23 06:16 | HMH.ANESCL ---
[facility] Anesthesia Checklist - Patient Identification Patient Identification: Arm Band - Structural Data Admitted From: Home Planned Operative Procedure/s: Lap. lim Consent for Planned Operative Procedure(s) Verified: Yes - NPO Status Verified Time NPO: 00:00 - Airway Assessment C-Spine Mobility Assessed: Yes TMJ Mobility Assessed: Yes Dentition: Edentulous - Neurological Assessment Level of Consciousness: Awake Hx Seizures: No Numbness or tingling in extremities: No - Anesthesia Plan Anesthesia Risk discussed: Yes Anesthesia Plan: Verified ASA Class: III Anesthesia Type: General [facility] History I have reviewed the patient's past medical history: Yes Medical History: Reports:: Aneurysm (brain), Atrial Fibrillation, Dementia, Hypertension Denies:: Cancer, Diabetes Mellitus Type 1, Diabetes Mellitus Type 2, Gastroesophageal Reflux Disease(GERD), MRSA *Have you ever received a pneumonia vaccine?: Yes *Have you received a flu vaccine this season?: No Anesthesia experience/problems:: None Amputation: No Fractures: No - *Social History Smoking Status: Current every day smoker Tobacco Type: cigarettes # Packs/Day (cigarettes): 2 Alcohol Intake: never Alcohol Intake Frequency:: 0-2 drinks per day Substance Use Type: denies use *Occupational Status:: retired Housing: house Household Members: spouse *Travel in the last 8 weeks: None Family Hx:: Diabetes
--- NOTE | 2022-05-23 06:24 | PC.NURSE ---
No acute changes. Pt has had 3 liquid BMs this shift. Pt has not voiced any complaints to staff t/o shift. NPO since midnight.
--- NOTE | 2022-05-23 07:38 | SUR.OPER ---
0628 brief noted to be soiled upon arrival to OR. pt asleep and intubated. brief was changed and pt cleaned with new brief then being put on for surgery procedure.
--- NOTE | 2022-05-23 07:46 | SUR.OPER ---
0704 decision was made to transition from laparoscopic procedure to open procedure. instruments needed to complete this transition were obtained and opened. 0706 open incision was made at this time.
--- NOTE | 2022-05-23 08:06 | SUR.OPER ---
0705 all counts verified and correct by [facility] and DECLAN Cordon prior to open incision being made
--- NOTE | 2022-05-23 08:08 | SUR.OPER ---
0808 attempted to contact to provide an update. no answer.
--- NOTE | 2022-05-23 08:23 | SUR.PREOP ---
Notified patients per Dr Maki's request that procedure has gone open and request that he keep phone available for any further updates.
--- NOTE | 2022-05-23 09:52 | HMH.OPNOTE ---
Date of procedure: 05/23/22 Pre-op Diagnosis:: Acute cholecystitis Post-op Diagnosis:: Same Procedure performed:: Diagnostic laparoscopy Open cholecystectomy for severe abscessed acute on chronic cholecystitis Surgeon:: Bryan Maki MD Anesthesia: JAYSON Estimated blood loss (mL): 150 Clinical Note:: Patient is a 76-year-old female. She is somewhat of a poor historian. She had been admitted after she presented to the emergency department on 05/19/2022 with poor appetite for several days with nausea and vomiting. She also had some black liquid diarrhea. When she was seen and evaluated in the emergency department she had findings of urinary tract infection. She had some abdominal pain and underwent CT scan which revealed findings of markedly abnormal gallbladder with gallbladder wall thickening, stones, and surrounding inflammatory reaction highly concerning for acute cholecystitis. . Surgical consultation was obtained. Patient was admitted for inpatient management for urinary tract infection as well as acute cholecystitis. Stool studies were ordered which returned as positive for C. difficile colitis and Cryptosporidium. She was treated for this. Her diarrhea has seemed to show some improvement but she developed more severe tenderness in the right upper quadrant with guarding. Plan was made to proceed with cholecystectomy. Operative findings:: Patient had a severely inflamed phlegmonous abscess gallbladder. There is likely profound acute on chronic cholecystitis. Gallbladder was completely obscured with omentum. The gallbladder was densely adherent to the anterior abdominal wall almost creating a cholecysto-cutaneous fistula. Gallbladder was also incredibly densely adherent to the colon at the hepatic flexure and there was concerns for possible cholecysto-colonic fistula. She had numerous moderately large gallstones. Operative note:: Consent was obtained and patient was taken the operating room. She was positioned in supine position. General anesthesia was induced. Abdomen was prepped and draped. Subumbilical skin incision was made while performing abdominal wall lift Veress needle was inserted. CO2 pneumoperitoneum was achieved to 15 mmHg. 11 mm optical trocar was inserted at the umbilicus. Is immediately noted that she had a very large masslike effect in the region of the gallbladder obscured by omentum but densely adherent to the anterior abdominal wall. Patient was positioned in reverse Trendelenburg left side down. A couple 5 mm trochars were inserted in the right upper abdomen. 10 mm trocar was inserted in the epigastrium. Adhesions to the anterior abdominal wall were taken down with KIRSTIN ultrasonic harmonic claire. Some dissection was carried out in a limited fashion and the gallbladder was unable to be identified. After some time decision was made to convert to open procedure. Right subcostal incision was made. Dissection was carried down through subcutaneous tissues. Fascia was incised and muscles were divided. Peritoneal cavity was entered. Dissection was carried out after exposure was achieved. Even freeing up and identifying the gallbladder was difficult as an open technique. With blunt dissection and some use of electrocautery ultimately the gallbladder was able to be identified. There was unavoidable rent in the gallbladder and there was purulent bile which exuded from this which was immediately suctioned free. Dissection was carried out ultimately freeing the omentum from the gallbladder. It was then noted that there was bowel densely adherent to the gallbladder. For quite some time this was unable to be dissected free. Further evaluation and inspection revealed this to be the hepatic flexure of the transverse colon. There was concerned that there may be a fistula between the gallbladder and colon. At this time Dr. Leiva was contacted for assistance. The gallbladder was ultimately dissected free from the co
--- NOTE | 2022-05-23 10:08 | P.PN_ITS ---
[facility] Anesthesia Record Part I Intake, IV Amount: 1,300 Estimated blood loss (mL): 200 Urine output (mL): 0 Blood Pressure: 98/55 SaO2: 94 Pulse Rate: 117 Respiratory Rate: 18 Temperature: 98.9 F Patient is:: Drowsy Stable to PACU at:: 10:04
--- NOTE | 2022-05-23 10:28 | DIET.NUTRFU ---
Patient is post sx and on clear liquids with potassium/dextrose for hydration until diet can meet nutritional needs. Labs reviewed, hydration WNL
--- NOTE | 2022-05-23 10:29 | PC.NURSE ---
patient changed rooms and belongings moved over to new room noted to have a pair of shoes, two shirts, glasses, and dentures
--- NOTE | 2022-05-23 10:43 | PC.NURSE ---
Verified pt's belongings from room 206 that were bagged up from Cora Baum RN w/ [facility]. Pt private belonging include: -upper denture - pair of glasses -red sweatpants -white and blue striped shirt -blue crocs -pink headband -pt folder -blue cross that came from pt folder from [facility]
--- NOTE | 2022-05-23 11:20 | SUR.OPER ---
0915 Dr. Maki requested that pt be placed in step down bed. Norbert Valdez RN, was notified. Norbert Driscoll RN stated they would get a step down bed room ready as soon as they could. Pt will stay in PACU until med/surg notifies JEWELRY ESTIMATOR that room is ready.
--- NOTE | 2022-05-23 11:52 | HMH.ACPN ---
Internal Medicine - PN: Subj *Date: 05/23/22 *Time: 11:52 Exam Vital signs and Labs for Last 24 Hours: Temp Pulse Resp BP Pulse Ox 97.9 F 115 H 18 108/66 L 94 L 05/23/22 10:44 05/23/22 10:44 05/23/22 10:44 05/23/22 10:44 05/23/22 10:44 I & O for Last 24 hours: Intake & Output 05/20/22 05/21/22 05/22/22 05/23/22 23:59 23:59 23:59 23:59 Intake Total 547 / 547 2994 / 2994 2214 / 2374 Output Total 0 / 0 Balance 547 / 547 2994 / 2994 2214 / 2374 Weight 77.383 kg 78.13 kg 79.56 kg 76.294 kg Assessment and Plan (1) Acute cholecystitis Status: Acute Category: Medical Code(s): K81.0 - Acute cholecystitis (2) Urinary tract infection Status: Acute Qualifiers: Urinary tract infection type: site unspecified Hematuria presence: without hematuria Qualified Code(s): N39.0 - Urinary tract infection, site not specified Category: Medical Code(s): N39.0 - Urinary tract infection, site not specified (3) Hypokalemia Status: Acute Category: Medical Code(s): E87.6 - Hypokalemia (4) C. 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 (6) Mild cognitive impairment Status: Deleted Category: Medical Code(s): G31.84 - Mild cognitive impairment, so stated (7) Atrial fibrillation Status: Acute Qualifiers: Atrial fibrillation type: unspecified Qualified Code(s): I48.91 - Unspecified atrial fibrillation Category: Medical Code(s): I48.91 - Unspecified atrial fibrillation (8) History of cerebral aneurysm Status: Acute Category: Medical Code(s): Z86.79 - Personal history of other diseases of the circulatory system The patient's infection will respond to the chosen ABx?: Yes Is the patient receiving the right drug, dose, and route?: Yes Could a more targeted ABx be ordered?: No (ENTEROBACTER CLOACEA + URINE (SENSITIVE TO ROCEPHIN))
--- NOTE | 2022-05-23 12:14 | ECG_ITS ---
APPROVED REPORT Exam: Resting ECG HR:121 bpm ECG Measurements Heart Rate 121 AXES QRSd 83 QRS -3 QT 286 T 60 QTc 358 Conclusion ATRIAL FIBRILLATION WITH RAPID VENTRICULAR RESPONSE POSSIBLE RIGHT VENTRICULAR CONDUCTION DELAY [RSR (QR) IN V1/V2] NONSPECIFIC ST & T-WAVE ABNORMALITY ABNORMAL RHYTHM ECG UNCONFIRMED REPORT Electronically signed by : Marcial Alfonso MD 05/25/2022 16:29:28
--- NOTE | 2022-05-23 12:54 | PC.NURSE ---
cardizem bolus running at this time
--- NOTE | 2022-05-23 13:16 | HMH.ACPN2 ---
Internal Medicine - PN: Subj *Date: 05/23/22 *Time: 13:16 Interval history: Patient had her gallbladder removed this morning and states she already feels better. Nurse called to report pt in a. fib with RVR, cardizem drip started. Exam Vital signs and Labs for Last 24 Hours: Temp Pulse Resp BP Pulse Ox 97.9 F 115 H 18 108/66 L 94 L 05/23/22 10:44 05/23/22 10:44 05/23/22 10:44 05/23/22 10:44 05/23/22 10:44 I & O for Last 24 hours: Intake & Output 05/20/22 05/21/22 05/22/22 05/23/22 23:59 23:59 23:59 23:59 Intake Total 547 / 547 2994 / 2994 2214 / 2371997 Output Total 0 / 0 Balance 547 / 547 2994 / 2994 2214 / 5 1997 Weight 170 lb 9.6 oz 172 lb 3.954 oz 175 lb 6.4 oz 168 lb 3.2 oz - Constitutional no acute distress - *Routine Respiratory Exam Present: CTA bilaterally - *Routine Cardiovascular Exam Present: tachycardia, irregular rhythm Assessment and Plan (1) Acute cholecystitis Status: Acute Category: Medical Code(s): K81.0 - Acute cholecystitis (2) Urinary tract infection Status: Acute Qualifiers: Urinary tract infection type: site unspecified Hematuria presence: without hematuria Qualified Code(s): N39.0 - Urinary tract infection, site not specified Category: Medical Code(s): N39.0 - Urinary tract infection, site not specified (3) Hypokalemia Status: Acute Category: Medical Code(s): E87.6 - Hypokalemia (4) C. 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 (6) Mild cognitive impairment Status: Deleted Category: Medical Code(s): G31.84 - Mild cognitive impairment, so stated (7) Atrial fibrillation Status: Acute Qualifiers: Atrial fibrillation type: unspecified Qualified Code(s): I48.91 - Unspecified atrial fibrillation Category: Medical Code(s): I48.91 - Unspecified atrial fibrillation (8) History of cerebral aneurysm Status: Acute Category: Medical Code(s): Z86.79 - Personal history of other diseases of the circulatory system (9) Atrial fibrillation with rapid ventricular response Status: Acute Category: Medical Code(s): I48.91 - Unspecified atrial fibrillation - Assessment and plan all Dx Assessment and Plan for all problems:: POD #0, s/p open cholecystectomy, on Cardizem drip now, HR is down to 110, continue current treatment.
--- NOTE | 2022-05-23 15:24 | PC.NURSE ---
Pt's granddaughter at bedside. Granddaughter asking questions about diet restrictions for pt, so she can relay information to grandfather. This RN printed information for low-fat diet and went through all information. Granddaughter verbalized understanding and would relay information to her grandfather.
--- NOTE | 2022-05-23 15:26 | PC.NURSE ---
rounded on patient. no family at bedside. patient is confused. did attempt to start an iv with out success. patient does have on working iv, currently getting fluids and cardizem
--- NOTE | 2022-05-23 16:18 | ECG_ITS ---
APPROVED REPORT Exam: Resting ECG HR:92 bpm ECG Measurements Heart Rate 92 AXES QRSd 86 QRS 6 QT 359 T 0 QTc 408 Conclusion ATRIAL FIBRILLATION POSSIBLE RIGHT VENTRICULAR CONDUCTION DELAY [RSR (QR) IN V1/V2] NONSPECIFIC ST & T-WAVE ABNORMALITY ABNORMAL RHYTHM ECG UNCONFIRMED REPORT Electronically signed by : Marcial Alfonso MD 05/25/2022 16:28:15
--- NOTE | 2022-05-23 19:43 | PC.NURSE ---
This shift pt HR noted to be elevated between 120-150bpm and sustained that high. EKG ordered and pt noted to be in afib RVR. MD Galvez notified and this RN received TO to give a 10mg bolus of dilt and to begin a dilt gtt. Orders received and carried out. Pt started out on gtt at 15mcg/min, and has been successfully weaned down to 5mcg/min. Pt is currently at a controlled rate but has not converted to NSR. Pt has been afebrile this shift. Incision from open cholecystectomy has a scant amount of old blood on the dressing but nothing new. MIKIE drains x2 remain in place, 80mL or serosaing drainage emptied this shift. Pt has constantly attempted to pull at MIKIE drains and at PIv. For safety, mitts have been placed on pt. Pt has been a q2h turn this shift. Scuds present to BLE. Pt has had a very poor appetite this shift and has been offered clear liquids multiple times but has refused. No other acute changes
[2022-05-24] VITALS (13 sets, daily range): BP systolic 102–160; BP diastolic 61–94; PULSE 70–108; RESP 20–36; TEMP 36.7–37.6; O2SAT 90–95; BMI 25.7
--- NOTE | 2022-05-24 06:25 | PC.NURSE ---
pt restless through the night, pt alert and oriented to name only, abdominal incisions with scant amount of bloody drainage noted, pt incontinent and purewick in use, diltiaxem drip still infusing at 5ml/hr with afib/flutter still noted on telemetry with rate 88-100; pt noted with scattered rhonchi this, 02 sats 93% on room air, redness and excoriation noted to perineal area, pt noted to choke on tylenol tablet and diluted tablets, pt with difficulty swallowing tablet noted. Mild edema 1-2+ noted to BLE; no other issues or concerns at this time, VSS
[2022-05-24 08:04] LABS: Basophils % 0.3 % (0.1-2.0); Hematocrit 39.8 % (37.0-47.0); Hemoglobin 12.9 g/dL (12.2-16.2); Lymphocytes # 0.9 K/mm3 (0.7-4.5); Lymphocytes % 6.5 % (10-50); Mean Corpuscular HGB Conc 32.4 g/dL (31.8-35.4); Mean Corpuscular Hemoglobin 32.4 pg (27.0-31.2); Mean Corpuscular Volume 99.9 fl (81-99); Mean Platelet Volume 9.1 fl (7.4-10.4); Monocytes # 0.8 K/mm3 (0.1-1.0); Monocytes % 5.2 % (1.7-9.3); Neutrophils # 12.8 K/mm3 (1.8-7.8); Neutrophils % 88.1 % (37.0-80.0); Platelet Count 206 K/mm3 (142-424); Red Blood Count 3.99 M/mm3 (4.20-5.40); Red Cell Distribution Width 15.1 % (11.5-17.5); White Blood Count 14.5 K/mm3 (4.8-10.8)
[2022-05-24 08:05] LABS: MANUAL DIFFERENTIAL MANUAL DIFFERENTIAL (MANUAL DIFF)
[2022-05-24 08:10] LABS: Alanine Aminotransferase 19 U/L (12-78); Albumin Level 2.8 g/dl (3.5-5.0); Alkaline Phosphatase 84 U/L (38-126); Anion Gap 9.5 mEq/L (5-15); Aspartate Amino Transferase 35 U/L (14-36); Bilirubin,Total 0.3 mg/dl (0.2-1.3); Blood Urea Nitrogen 8 mg/dl (7-17); Calcium 8.2 mg/dl (8.4-10.2); Carbon Dioxide 23 mmol/L (22.0-30.0); Chloride 109 mmol/L (98-107); Creatinine Clearance Estimated 60 mL/min (50-200); Estimated Glomerular Filt Rate 70 ml/min (>60); GFR (African American) 85 ML/MIN (>60); Globulin 2.8 g/dL (1.3-3.2); Glucose 139 mg/dl (74-100); Potassium 4.5 mmoL/L (3.5-5.1); Sodium 137 mmol/L (136-145); Total Protein,Serum 5.6 g/dl (6.3-8.2)
--- NOTE | 2022-05-24 08:45 | PC.NURSE ---
pt up to chair at bedside
--- NOTE | 2022-05-24 08:59 | PC.NURSE ---
Afib uncontrolled with rate 120s. Dilt gtt increased to 10mg/hr.
--- NOTE | 2022-05-24 09:44 | P.PN_ITS ---
Subjective Narrative: Sitting in chair. She states that she feels okay . Progress Note: A&P (1) Acute cholecystitis Status: Acute Assessment and plan: Overall, doing fairly well status post diagnostic laparoscopy followed by open cholecystectomy. Continue limited clears for now Continue Petros-Mcintyre drain management to bulb suction (2) Urinary tract infection Status: Acute (3) Hypokalemia Status: Acute (4) C. difficile colitis Status: Acute (5) Cryptosporidial gastroenteritis Status: Acute (6) Mild cognitive impairment Status: Deleted (7) Atrial fibrillation Status: Acute (8) History of cerebral aneurysm Status: Acute (9) Atrial fibrillation with rapid ventricular response Status: Acute Exam Vital signs and Labs for Last 24 Hours: Temp Pulse Resp BP Pulse Ox 98.8 F 97 H 36 H 160/94 H 92 L 05/24/22 08:00 05/24/22 09:25 05/24/22 08:00 05/24/22 08:00 05/24/22 08:00 Laboratory Results - last 24 hr 05/24/22 07:22: WBC 14.5 H D, RBC 3.99 L, Hgb 12.9, Hct 39.8, MCV 99.9 H, MCH 32.4 H, MCHC 32.4, RDW 15.1, Plt Count 206 D, MPV 9.1, Neut % (Auto) 88.1 H, Lymph % (Auto) 6.5 L, [place] % (Auto) 5.2, Eos % (Auto) 0.0 L, Baso % (Auto) 0.3, Neut # (Auto) 12.8 H, Lymph # (Auto) 0.9, [place] # (Auto) 0.8, Eos # (Auto) 0.0, Baso # (Auto) 0.0 05/24/22 07:22: Sodium 137, Potassium 4.5, Chloride 109 H, Carbon Dioxide 23, Anion Gap 9.5, BUN 8 D, Creatinine 0.80, Estimated Creat Clear 60, Estimated GFR 70, Est GFR ( Amer) 85, Glucose 139 H, Calcium 8.2 L, Total Bilirubin 0.3, AST 35, ALT 19, Alkaline Phosphatase 84, Total Protein 5.6 L, Albumin 2.8 L , Globulin 2.8, Albumin/Globulin Ratio 1.0 L I & O for Last 24 hours: Intake & Output 05/21/22 05/22/22 05/23/22 05/24/22 11:59 11:59 11:59 11:59 Intake Total 2164 / 2164 1579 / 1579 3584 / 3584 1070 / 1070 Output Total 0 / 0 820 / 820 Balance 2164 / 2164 1579 / 1579 3584 / 3584 250 / 250 Weight 172 lb 3.954 oz 175 lb 6.4 oz 168 lb 3.2 oz 173 lb 7 oz - Constitutional no acute distress - *Routine Respiratory Exam Absent: respiratory distress - *Routine Cardiovascular Exam Absent: tachycardia - *Routine Abdominal Exam Comments: Dressings in place.
--- NOTE | 2022-05-24 10:03 | HMH.ACPN2 ---
Internal Medicine - PN: Subj *Date: 05/24/22 *Time: 10:03 Interval history: Patient had some nausea and vomiting overnight, otherwise no complaints. Exam Vital signs and Labs for Last 24 Hours: Temp Pulse Resp BP Pulse Ox 98.8 F 97 H 36 H 160/94 H 92 L 05/24/22 08:00 05/24/22 09:25 05/24/22 08:00 05/24/22 08:00 05/24/22 08:00 Laboratory Results - last 24 hr 05/24/22 07:22: WBC 14.5 H D, RBC 3.99 L, Hgb 12.9, Hct 39.8, MCV 99.9 H, MCH 32.4 H, MCHC 32.4, RDW 15.1, Plt Count 206 D, MPV 9.1, Neut % (Auto) 88.1 H, Lymph % (Auto) 6.5 L, [place] % (Auto) 5.2, Eos % (Auto) 0.0 L, Baso % (Auto) 0.3, Neut # (Auto) 12.8 H, Lymph # (Auto) 0.9, [place] # (Auto) 0.8, Eos # (Auto) 0.0, Baso # (Auto) 0.0 05/24/22 07:22: Sodium 137, Potassium 4.5, Chloride 109 H, Carbon Dioxide 23, Anion Gap 9.5, BUN 8 D, Creatinine 0.80, Estimated Creat Clear 60, Estimated GFR 70, Est GFR ( Amer) 85, Glucose 139 H, Calcium 8.2 L, Total Bilirubin 0.3, AST 35, ALT 19, Alkaline Phosphatase 84, Total Protein 5.6 L, Albumin 2.8 L, Globulin 2.8, Albumin/Globulin Ratio 1.0 L Vital Signs - 24 hr 05/23/22 10:04 05/23/22 10:08 05/23/22 10:14 Temperature 98.9 F 98.9 F Pulse Rate 117 H Pulse Rate [Apical] 117 H 110 H Pulse Rate [Right Radial] Respiratory Rate 18 18 18 Blood Pressure 98/55 L Blood Pressure [Left Arm] 98/55 L 105/71 L 02 Sat by Pulse Oximetry 94 L 93 L 05/23/22 10:24 05/23/22 10:34 05/23/22 10:44 Temperature 97.9 F Pulse Rate Pulse Rate [Apical] 106 H 113 H 115 H Pulse Rate [Right Radial] Respiratory Rate 18 18 18 Blood Pressure Blood Pressure [Left Arm] 101/58 L 104/67 L 108/66 L 02 Sat by Pulse Oximetry 99 94 L 94 L 05/23/22 10:50 05/23/22 11:05 05/23/22 11:20 Temperature 97.8 F 97.7 F 97.7 F Pulse Rate Pulse Rate [Apical] Pulse Rate [Right Radial] 117 H 113 H 123 H Respiratory Rate 20 19 19 Blood Pressure Blood Pressure [Left Arm] 131/51 L 120/51 L 121/69 02 Sat by Pulse Oximetry 94 L 94 L 94 L 05/23/22 11:35 05/23/22 12:00 05/23/22 12:05 Temperature 97.5 F L 97.6 F Pulse Rate 120 H Pulse Rate [Apical] Pulse Rate [Right Radial] 120 H 121 H Respiratory Rate 19 20 Blood Pressure Blood Pressure [Left Arm] 135/71 121/78 02 Sat by Pulse Oximetry 93 L 94 L 05/23/22 12:35 05/23/22 13:05 05/23/22 13:35 Temperature 97.4 F L 97.9 F 97.4 F L Pulse Rate Pulse Rate [Apical] Pulse Rate [Right Radial] 124 H 120 H 122 H Respiratory Rate 20 19 19 Blood Pressure Blood Pressure [Left Arm] 130/78 119/64 123/81 02 Sat by Pulse Oximetry 95 96 96 05/23/22 13:55 05/23/22 14:35 05/23/22 15:35 Temperature 98.4 F 97.8 F Pulse Rate Pulse Rate [Apical] 135 H Pulse Rate [Right Radial] 108 H 80 Respiratory Rate 20 21 Blood Pressure Blood Pressure [Left Arm] 114/79 120/75 02 Sat by Pulse Oximetry 95 96 05/23/22 16:00 05/23/22 16:35 05/23/22 17:35 Temperature 97.8 F 97.8 F Pulse Rate 80 Pulse Rate [Apical] Pulse Rate [Right Radial] 87 86 Respiratory Rate 20 20 Blood Pressure Blood Pressure [Left Arm] 125/72 136/68 02 Sat by Pulse Oximetry 96 96 97 05/23/22 20:00 05/23/22 22:00 05/24/22 00:00 Temperature 98.5 F 98.7 F Pulse Rate 80 80 Pulse Rate [Apical] Pulse Rate [Right Radial] 89 87 78 Respiratory Rate 24 20 22 Blood Pressure Blood Pressure [Left Arm] 138/80 120/67 110/70 02 Sat by Pulse Oximetry 97 95 95 05/24/22 02:00 05/24/22 04:00 05/24/22 06:00 Temperature 99.6 F Pulse Rate 95 H Pulse Rate [Apical] Pulse Rate [Right Radial] 89 96 H 106 H Respiratory Rate 24 26 H 22 Blood Pressure Blood Pressure [Left Arm] 129/71 145/88 H 141/90 H 02 Sat by Pulse Oximetry 94 L 92 L 91 L 05/24/22 08:00 05/24/22 09:25 Temperature 98.8 F Pulse Rate 97 H Pulse Rate [Apical] Pulse Rate [Right Radial] 108 H Respiratory Rate 36 H Blood Pressure Blood Pressure [Left Arm] 160/94 H 02 Sat by Pulse Oxim
[2022-05-24 10:38] LABS: Anisocytosis 1+; Lymphocytes % 7 % (10-50); Macrocytosis 1+; Monocytes % 4 % (2-9); Neutrophils % 88 % (42-76); Platelet Estimate Normal; Total Cells Counted 100
--- NOTE | 2022-05-24 19:05 | PC.NURSE ---
pt well t/o shift except n/v, relieved by prescribed meds. pt c/o n/v when taking po meds. pt up to chair most of shift, tolerated well. clear liquid diet. GCS 14 alert to name and . cholecystectomy on 05/23 dsg to abd cdi, 2 estephanie drains with 50 ml serosanguinous drainage. incontinent with purewick. redness in front abd folds. bed alarm on. call lópez within reach
[2022-05-25] VITALS (14 sets, daily range): BP systolic 90–137; BP diastolic 58–79; PULSE 70–95; RESP 16–32; TEMP 36.4–37.2; O2SAT 92–94; BMI 27.3
--- NOTE | 2022-05-25 04:26 | PC.NURSE ---
Pt is alert to name and birthday, pt has been resting through the night. Pt has had no complaints. Pt struggles with PO medications.Pt diltiazem infusing at 5mLs/hr. O2 sat >90% room air. HR in the 80s throughout shift. SBP 114-131. Incision sites noted with dressings CDI, MIKIE drains x2 noted with serosang drainage. Pt is incontinent, used brief and purewick. Bed alarm is on and functioning.
[2022-05-25 07:42] LABS: Basophils % 0.3 % (0.1-2.0); Eosinophils % 0.3 % (0.1-12.0); Hematocrit 37.2 % (37.0-47.0); Hemoglobin 12.1 g/dL (12.2-16.2); Lymphocytes # 0.8 K/mm3 (0.7-4.5); Lymphocytes % 8.1 % (10-50); Mean Corpuscular HGB Conc 32.4 g/dL (31.8-35.4); Mean Corpuscular Hemoglobin 32.3 pg (27.0-31.2); Mean Corpuscular Volume 99.7 fl (81-99); Mean Platelet Volume 9.5 fl (7.4-10.4); Monocytes # 0.5 K/mm3 (0.1-1.0); Neutrophils % 86.2 % (37.0-80.0); Platelet Count 200 K/mm3 (142-424); Red Blood Count 3.74 M/mm3 (4.20-5.40); White Blood Count 10.5 K/mm3 (4.8-10.8)
[2022-05-25 07:43] LABS: MANUAL DIFFERENTIAL MANUAL DIFFERENTIAL (MANUAL DIFF)
[2022-05-25 07:50] LABS: Alanine Aminotransferase 15 U/L (12-78); Albumin Level 2.7 g/dl (3.5-5.0); Alkaline Phosphatase 78 U/L (38-126); Anion Gap 5.8 mEq/L (5-15); Aspartate Amino Transferase 25 U/L (14-36); Bilirubin,Total 0.3 mg/dl (0.2-1.3); Blood Urea Nitrogen 8 mg/dl (7-17); Calcium 7.9 mg/dl (8.4-10.2); Carbon Dioxide 27 mmol/L (22.0-30.0); Chloride 105 mmol/L (98-107); Creatinine Clearance Estimated 64 mL/min (50-200); Estimated Glomerular Filt Rate 70 ml/min (>60); GFR (African American) 85 ML/MIN (>60); Globulin 2.8 g/dL (1.3-3.2); Glucose 130 mg/dl (74-100); Potassium 3.8 mmoL/L (3.5-5.1); Sodium 134 mmol/L (136-145); Total Protein,Serum 5.5 g/dl (6.3-8.2)
[2022-05-25 08:09] LABS: Lymphocytes % 12 % (10-50); Monocytes % 2 % (2-9); Neutrophils % 86 % (42-76); Total Cells Counted 100
[2022-05-25 08:10] LABS: Platelet Estimate Normal; RBC Morphology Normal
--- NOTE | 2022-05-25 09:26 | HMH.ACPN2 ---
Internal Medicine - PN: Subj *Date: 05/25/22 *Time: 09:26 Interval history: No new problems noted overnight. Diltiazem drip rate down to 5, tolerating clear liquids. Exam Vital signs and Labs for Last 24 Hours: Temp Pulse Resp BP Pulse Ox 98.4 F 94 H 18 90/58 L 93 L 05/25/22 04:00 05/25/22 08:52 05/25/22 08:00 05/25/22 08:00 05/25/22 08:00 Laboratory Results - last 24 hr 05/24/22 07:22: Total Counted 100, Neutrophils % (Manual) 88 H, Band Neutrophils % 1.0, Lymphocytes % (Manual) 7 L, Monocytes % (Manual) 4, Platelet Estimate Normal, Anisocytosis 1+, Macrocytosis 1+ 05/25/22 07:18: WBC 10.5 D, RBC 3.74 L, Hgb 12.1 L, Hct 37.2, MCV 99.7 H, MCH 32.3 H, MCHC 32.4, RDW 15.0, Plt Count 200, MPV 9.5, Neut % (Auto) 86.2 H, Lymph % (Auto) 8.1 L, [place] % (Auto) 5.0, Eos % (Auto) 0.3, Baso % (Auto) 0.3, Neut # (Auto) 9.0 H, Lymph # (Auto) 0.8, [place] # (Auto) 0.5, Eos # (Auto) 0.0, Baso # (Auto) 0.0, Total Counted 100, Neutrophils % (Manual) 86 H, Lymphocytes % (Manual) 12, Monocytes % (Manual) 2, Platelet Estimate Normal, RBC Morphology Normal 05/25/22 07:18: Sodium 134 L, Potassium 3.8, Chloride 105, Carbon Dioxide 27, Anion Gap 5.8, BUN 8, Creatinine 0.80, Estimated Creat Clear 64, Estimated GFR 70, Est GFR ( Amer) 85, Glucose 130 H, Calcium 7.9 L, Total Bilirubin 0.3, AST 25 D, ALT 15, Alkaline Phosphatase 78, Total Protein 5.5 L, Albumin 2.7 L, Globulin 2.8, Albumin/Globulin Ratio 1.0 L Vital Signs - 24 hr 05/24/22 10:00 05/24/22 12:00 05/24/22 14:00 Temperature 98.0 F Pulse Rate 70 Pulse Rate [Right Radial] 90 81 89 Respiratory Rate 29 H 23 28 H Blood Pressure [Left Arm] 137/82 128/78 116/76 02 Sat by Pulse Oximetry 90 L 91 L 95 05/24/22 16:00 05/24/22 18:00 05/24/22 20:00 Temperature 98.5 F 98.5 F Pulse Rate 76 80 Pulse Rate [Right Radial] 81 87 80 Respiratory Rate 27 H 21 22 Blood Pressure [Left Arm] 125/64 102/61 L 114/71 02 Sat by Pulse Oximetry 95 95 93 L 05/24/22 22:00 05/25/22 00:00 05/25/22 02:00 Temperature 97.6 F Pulse Rate 80 Pulse Rate [Right Radial] 86 81 85 Respiratory Rate 20 22 20 Blood Pressure [Left Arm] 131/65 118/66 120/65 02 Sat by Pulse Oximetry 93 L 94 L 93 L 05/25/22 04:00 05/25/22 06:00 05/25/22 08:00 Temperature 98.4 F Pulse Rate 80 Pulse Rate [Right Radial] 84 80 79 Respiratory Rate 20 18 18 Blood Pressure [Left Arm] 113/66 131/68 90/58 L 02 Sat by Pulse Oximetry 93 L 92 L 93 L 05/25/22 08:52 Temperature Pulse Rate 94 H Pulse Rate [Right Radial] Respiratory Rate Blood Pressure [Left Arm] 02 Sat by Pulse Oximetry I & O for Last 24 hours: Intake & Output 05/22/22 05/23/22 05/24/22 05/25/22 23:59 23:59 23:59 23:59 Intake Total 2215 / 2375 2261 / 2261 2050 Output Total 380 / 380 1140 / 1140 400 / 400 Balance 2215 / 2375 1881 / 1881 911 / 911 -400 / -400 Weight 175 lb 6.4 oz 168 lb 3.2 oz 173 lb 7 oz 184 lb 9 oz - Constitutional no acute distress - *Routine HEENT Exam Head: Present: normocephalic Eye: Present: EOMI, PERRL ENT: Present: mucous membranes moist - *Routine Neck Exam Present: supple. Absent: lymphadenopathy - *Routine Respiratory Exam Present: CTA bilaterally - *Routine Cardiovascular Exam Present: irregularly irregular - *Routine Abdominal Exam Present: soft, normoactive bowel sounds. Absent: tenderness - *Routine Extremities Exam Absent: cyanosis, clubbing, edema - *Routine Skin Exam Present: warm. Absent: rash - *Routine Neurological Exam Present: alert Assessment and Plan (1) Acute cholecystitis Status: Acute Category: Medical Code(s): K81.0 - Acute cholecystitis (2) Urinary tract infection Status: Acute Qualifiers: Urinary tract infection type: site unspecified Hematuria presence: without hematuria Qualified Code(s): N39.0 - Urinary tract infection, site not specified Category: Medical Code(s): N39.0 - Urinary tract infection, site not specified
--- NOTE | 2022-05-25 09:51 | P.PN_ITS ---
Subjective Patient reports: tolerating liquids well Progress Note: A&P (1) Acute cholecystitis Status: Acute Assessment and plan: Overall, doing well status post open cholecystectomy. Full liquid diet ordered Continue MIKIE drainage for now (2) Urinary tract infection Status: Acute (3) Hypokalemia Status: Acute (4) C. difficile colitis Status: Acute (5) Cryptosporidial gastroenteritis Status: Acute (6) Mild cognitive impairment Status: Deleted (7) Atrial fibrillation Status: Acute (8) History of cerebral aneurysm Status: Acute (9) Atrial fibrillation with rapid ventricular response Status: Acute Exam Vital signs and Labs for Last 24 Hours: Temp Pulse Resp BP Pulse Ox 98.4 F 94 H 18 90/58 L 93 L 05/25/22 04:00 05/25/22 08:52 05/25/22 08:00 05/25/22 08:00 05/25/22 08:00 Laboratory Results - last 24 hr 05/24/22 07:22: Total Counted 100, Neutrophils % (Manual) 88 H, Band Neutrophils % 1.0, Lymphocytes % (Manual) 7 L, Monocytes % (Manual) 4, Platelet Estimate Normal, Anisocytosis 1+, Macrocytosis 1+ 05/25/22 07:18: WBC 10.5 D, RBC 3.74 L, Hgb 12.1 L, Hct 37.2, MCV 99.7 H, MCH 32.3 H, MCHC 32.4, RDW 15.0, Plt Count 200, MPV 9.5, Neut % (Auto) 86.2 H, Lymph % (Auto) 8.1 L, [place] % (Auto) 5.0, Eos % (Auto) 0.3, Baso % (Auto) 0.3, Neut # (Auto) 9.0 H, Lymph # (Auto) 0.8, [place] # (Auto) 0.5, Eos # (Auto) 0.0, Baso # (Auto) 0.0, Total Counted 100, Neutrophils % (Manual) 86 H, Lymphocytes % (Manual) 12, Monocytes % (Manual) 2, Platelet Estimate Normal, RBC Morphology Normal 05/25/22 07:18: Sodium 134 L, Potassium 3.8, Chloride 105, Carbon Dioxide 27, Anion Gap 5.8, BUN 8, Creatinine 0.80, Estimated Creat Clear 64, Estimated GFR 70, Est GFR ( Amer) 85, Glucose 130 H, Calcium 7.9 L, Total Bilirubin 0.3, AST 25 D, ALT 15, Alkaline Phosphatase 78, Total Protein 5.5 L, Albumin 2.7 L, Globulin 2.8, Albumin/Globulin Ratio 1.0 L I & O for Last 24 hours: Intake & Output 05/22/22 05/23/22 05/24/22 05/25/22 11:59 11:59 11:59 11:59 Intake Total 1579 / 1579 3584 / 3584 1190 / 1190 1124 / 1124 Output Total 820 / 820 1100 / 1100 Balance 1579 / 1579 3584 / 3584 370 / 370 Weight 175 lb 6.4 oz 168 lb 3.2 oz 173 lb 7 oz 184 lb 9 oz - Constitutional no acute distress - *Routine Respiratory Exam Absent: respiratory distress - *Routine Cardiovascular Exam Absent: tachycardia - *Routine Abdominal Exam Comments: Incision healing without sign of infection. Serosanguineous drainage noted in Petros-Wilfredo.
--- NOTE | 2022-05-25 11:08 | PC.NURSE ---
po dilt given at 0945. iv dilt stopped at this time.
--- NOTE | 2022-05-25 13:45 | PC.NURSE ---
Rounded on pt, cleaned and straightened room. Pt asleep in bed at this time.
--- NOTE | 2022-05-25 18:02 | PC.NURSE ---
pt has done well most of shift with some agitation. alert to self. iv 20 L AC with D5 1/2 NS K20 at 50ml/hr. pt is now on full liquids so far tolerating well when able to get her to eat, pt has been eating <25% this shift. abd incision from open raphael on 05/23, 2JP drains with serosanguineous fluid, 4X4 dsg around drains cdi. bilat scds. no concern at this time.
--- NOTE | 2022-05-25 22:20 | PC.NURSE ---
after giving pt one pill crushed in apple sauce, pt threw up, pt stated can't take those nasty pills , will alert day shift RN in am to try and get flagyl switched to IV for pt; changed pt's gown and bed, bathed pt, pt has stage II on gluteal fold that is bleeding, left depends off pt after cleaning her up due to stage II, put purewick back in place
[2022-05-26] VITALS (13 sets, daily range): BP systolic 102–156; BP diastolic 51–71; PULSE 73–117; RESP 17–26; TEMP 36.5–36.9; O2SAT 91–97; BMI 26.2
--- NOTE | 2022-05-26 08:14 | DIET.NUTRFU ---
Patient continues to be on liquid diet since 05/22 post sx, added ensure with trays to help meet nutritional needs. Continue to monitor tolerance. Labs reviewed. IVF continues to help meet hydration needs
--- NOTE | 2022-05-26 08:45 | PC.WOUNDNOTE ---
Wounds noted during am assessment:
--- NOTE | 2022-05-26 08:56 | HMH.ACPN2 ---
Internal Medicine - PN: Subj *Date: 05/26/22 *Time: 08:56 Interval history: Patient did not want to take oral Flagyl last night. She was also noted to have a rash and skin breakdown at the upper gluteal fold. Exam Vital signs and Labs for Last 24 Hours: Temp Pulse Resp BP Pulse Ox 98.5 F 78 17 102/59 L 93 L 05/26/22 04:00 05/26/22 08:23 05/26/22 06:00 05/26/22 06:00 05/26/22 06:00 Vital Signs - 24 hr 05/25/22 10:00 05/25/22 12:00 05/25/22 14:00 Temperature 98.7 F 97.6 F Pulse Rate 80 Pulse Rate [Right Radial] 80 74 73 Respiratory Rate 18 32 H 26 H Blood Pressure [Left Arm] 110/67 114/61 110/63 02 Sat by Pulse Oximetry 92 L 93 L 92 L 05/25/22 16:00 05/25/22 16:27 05/25/22 18:00 Temperature 98.3 F Pulse Rate 80 Pulse Rate [Right Radial] 70 84 Respiratory Rate 16 16 Blood Pressure [Left Arm] 106/62 L 137/79 02 Sat by Pulse Oximetry 92 L 92 L 05/25/22 20:00 05/25/22 22:00 05/26/22 00:00 Temperature 98.8 F 97.9 F Pulse Rate 88 89 Pulse Rate [Right Radial] 95 H 90 91 H Respiratory Rate 22 24 26 H Blood Pressure [Left Arm] 128/67 129/72 119/71 02 Sat by Pulse Oximetry 93 L 94 L 94 L 05/26/22 02:00 05/26/22 04:00 05/26/22 06:00 Temperature 98.5 F Pulse Rate 81 Pulse Rate [Right Radial] 88 76 77 Respiratory Rate 22 24 17 Blood Pressure [Left Arm] 112/51 L 117/62 102/59 L 02 Sat by Pulse Oximetry 93 L 91 L 93 L 05/26/22 08:23 Temperature Pulse Rate 78 Pulse Rate [Right Radial] Respiratory Rate Blood Pressure [Left Arm] 02 Sat by Pulse Oximetry I & O for Last 24 hours: Intake & Output 05/23/22 05/24/22 05/25/22 05/26/22 23:59 23:59 23:59 23:59 Intake Total 2261 / 2262050 1078 / 1078 Output Total 380 / 380 1140 / 1140 420 / 1020 1600 / 1600 Balance 1881 / 1881 911 / 911 658 / 58 -1600 / -1600 Weight 168 lb 3.2 oz 173 lb 7 oz 184 lb 9 oz 177 lb 1 oz - Constitutional no acute distress - *Routine Respiratory Exam Present: CTA bilaterally - *Routine Cardiovascular Exam Present: RRR - *Routine Skin Exam Comments: Skin redness over the upper gluteal fold with some skin breakdown Assessment and Plan (1) Acute cholecystitis Status: Acute Category: Medical Code(s): K81.0 - Acute cholecystitis (2) Urinary tract infection Status: Acute Qualifiers: Urinary tract infection type: site unspecified Hematuria presence: without hematuria Qualified Code(s): N39.0 - Urinary tract infection, site not specified Category: Medical Code(s): N39.0 - Urinary tract infection, site not specified (3) Hypokalemia Status: Acute Category: Medical Code(s): E87.6 - Hypokalemia (4) C. 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 (6) Mild cognitive impairment Status: Deleted Category: Medical Code(s): G31.84 - Mild cognitive impairment, so stated (7) Atrial fibrillation Status: Acute Qualifiers: Atrial fibrillation type: unspecified Qualified Code(s): I48.91 - Unspecified atrial fibrillation Category: Medical Code(s): I48.91 - Unspecified atrial fibrillation (8) History of cerebral aneurysm Status: Acute Category: Medical Code(s): Z86.79 - Personal history of other diseases of the circulatory system (9) Atrial fibrillation with rapid ventricular response Status: Acute Category: Medical Code(s): I48.91 - Unspecified atrial fibrillation (10) Rash Status: Acute Category: Medical Code(s): R21 - Rash and other nonspecific skin eruption - Assessment and plan all Dx Assessment and Plan for all problems:: OK to transfer out of step down, start nystatin cream on buttocks rash, need to turn frequently and get OOB.
--- NOTE | 2022-05-26 09:07 | HMH.GSPN ---
Subjective Narrative: Patient seems of tolerated full liquids. Progress Note: A&P (1) Acute cholecystitis Status: Acute Assessment and plan: Overall, continuing to slowly improve status post open cholecystectomy. She has tolerated full liquids. Petros-Mcintyre drainage output difficult to ascertain secondary to multiple drains noted within nursing documentation. Closely monitor Petros-Mcintyre output Likely advance diet Continue overall management as per primary service (2) Urinary tract infection Status: Acute (3) Hypokalemia Status: Acute (4) C. difficile colitis Status: Acute (5) Cryptosporidial gastroenteritis Status: Acute (6) Mild cognitive impairment Status: Deleted (7) Atrial fibrillation Status: Acute (8) History of cerebral aneurysm Status: Acute (9) Atrial fibrillation with rapid ventricular response Status: Acute (10) Rash Status: Acute Exam Vital signs and Labs for Last 24 Hours: Temp Pulse Resp BP Pulse Ox 98.5 F 78 17 102/59 L 93 L 05/26/22 04:00 05/26/22 08:23 05/26/22 06:00 05/26/22 06:00 05/26/22 06:00 I & O for Last 24 hours: Intake & Output 05/23/22 05/24/22 05/25/22 05/26/22 11:59 11:59 11:59 11:59 Intake Total 3584 / 3584 1190 / 1190 1271 / 1271 931 / 931 Output Total 820 / 820 1100 / 1100 1620 / 1620 Balance 3584 / 3584 370 / 370 171 / 171 -689 / -689 Weight 168 lb 3.2 oz 173 lb 7 oz 184 lb 9 oz 177 lb 1 oz - Constitutional no acute distress - *Routine Respiratory Exam Absent: respiratory distress - *Routine Cardiovascular Exam Absent: tachycardia - *Routine Abdominal Exam Present: soft
--- NOTE | 2022-05-26 09:18 | P.PN_ITS ---
[facility] Anesthesia Record Part II Discharge Time: 10:34 Destination: floor PACU nurse assessment reviewed?: Yes Patient Condition:: Good Anesthesia Complications:: None Swallowing reflex intact?: Yes Cyanosis?: No Blood Pressure: 131/51 Pulse Rate: 117 Temperature: 97.8 F Mental Status: Alert & Oriented Pain level:: 4 Nausea and/or vomitting:: None Intake, IV Amount: 1,500
--- NOTE | 2022-05-26 10:52 | PC.NURSE ---
Contacted Dr Galvez's office at 1028 in regards to PT consult. pt was difficult to get out of chair the past weekend. Dr Galvez returned call at 1035. PT order entered at this time by . PT (Jean Carlos) notified face to face by myself.
--- NOTE | 2022-05-26 11:49 | HMH.PTEV ---
Physical Therapy Evaluation Rehab PT IP Evaluation Start: 05/26/22 10:39 Freq: ONCE Status: Active Protocol: Document 05/26/22 11:44 PHORNE (Rec: 05/26/22 11:49 PHORNE [id number]) Subjective/History History History 76 yowf adm to [facility] with UTI and now S/P lap to open CCY. She presents somewhat confused but does reports she lives with her who provides care for her. Unclear if pt was ambulatory prior to adm, she does state she has a w/c. Subjective Subjective Currently she c/o pain in the abdomen post-op. [address] Rehab PT IP Eval Objective Appearance Patient Behavior Cooperative,Confused Patient Orientation Person,Place Difficulty following instructions mild Speech Pattern Clear Ambulation Patient Able to Ambulate No Balance Ability to Arise Able, uses arms to help Sitting Balance Leans or slides in chair Standing Balance Unsteady Dynamic Sitting Balance Ability Poor Dynamic Standing Balance Ability Poor Transfers Bed Transfer Ability Maximum x 2 (75% assist) Chair Transfer Ability Maximum x 2 (75% assist) Sit to Stand Bed Transfer Ability Maximum x 2 (75% assist) Sit to Stand Chair Transfer Ability Maximum x 2 (75% assist) Rehab PT IP prob,goals,plan Problems Date of Evaluation: 05/26/22 PT IP Problems Bed Mobility,Transfers Rehab Potential Rehab Potential Fair Plan PT Intervention Plan Bed Mobility,Transfers,Gait, Self care,Therapeutic Exercise PT Plan Frequency BID Duration LOS Discharge Goals Bed Transfer Ability Moderate x 2 (50% assist) Sit to Stand Chair Transfer Ability Moderate x 2 (50% assist) Discharge Plan PT Discharge Plan Pt is currently most appropriate for rehab placement once medically stable. If she does return home she will be at high risk for falls, wounds, or further debility. G -code Required No Eval Complexity Eval Charge Codes 01907 - High Complexity PHYSICIAN CERTIFICATION: I certify the specified therapy services for Poonam Chavez are required, authorized, and reviewed every 30 days.
--- NOTE | 2022-05-26 15:44 | PC.NURSE ---
per pt family, during am visit they noticed that she was prone to babbling . during conversation it was explained that pt has a uti and that this was potentially the source of her confusion. pt was up to chair for less than an hour following PT. the pt began to wiggle about in the chair and was attempting to slide out of the bottom. pt has also had 2 large loose bm thus far this shift. nad noted. lungs contain scattered rhonchi. bowel sounds are active. skin issues previously documented. Dr Galvez aware, pictures on the chart.
[2022-05-27] VITALS (10 sets, daily range): BP systolic 127–151; BP diastolic 61–88; PULSE 75–109; RESP 16–25; TEMP 36.6–37.3; O2SAT 90–96; BMI 25.2
--- NOTE | 2022-05-27 05:03 | PC.NURSE ---
pt has rested some this shift, pt's sundowning hasn't been as bad as previous shift, pt had 2 incontinent episodes this shift, pt has purewick in place, VSS, pt still in afib, pt has not complained of pain this shift, pt's incisions telephone quotation clerk with alfredo intact, estephanie's putting out scant amount of serosanguineous drainage
--- NOTE | 2022-05-27 07:12 | P.PN_ITS ---
Subjective Narrative: The patient seems to be tolerating her bland diet and states that she is fine . Progress Note: A&P (1) Acute cholecystitis Status: Acute Assessment and plan: Overall, doing well status post open cholecystectomy. Continue overall management as per primary service. Continue Petros-Mcintyre drains for now. May remove drains in the next 24 to 48 hours if she remains hospitalized (pending any changes in output now that she is on a bland diet). (2) Urinary tract infection Status: Acute (3) Hypokalemia Status: Acute (4) C. difficile colitis Status: Acute (5) Cryptosporidial gastroenteritis Status: Acute (6) Mild cognitive impairment Status: Deleted (7) Atrial fibrillation Status: Acute (8) History of cerebral aneurysm Status: Acute (9) Atrial fibrillation with rapid ventricular response Status: Acute (10) Rash Status: Acute Exam Vital signs and Labs for Last 24 Hours: Temp Pulse Resp BP Pulse Ox 97.8 F 89 18 127/73 96 05/27/22 04:00 05/27/22 04:00 05/27/22 04:00 05/27/22 04:00 05/27/22 04:00 I & O for Last 24 hours: Intake & Output 05/24/22 05/25/22 05/26/22 05/27/22 11:59 11:59 11:59 11:59 Intake Total 1190 / 1190 1271 / 1271 2491 / 2491 120 / 120 Output Total 820 / 820 1100 / 1100 1620 / 1620 1060 / 1060 Balance 370 / 370 171 / 171 871 / 871 -940 / -940 Weight 173 lb 7 oz 184 lb 9 oz 177 lb 1 oz 170 lb - Constitutional no acute distress - *Routine Respiratory Exam Absent: respiratory distress - *Routine Cardiovascular Exam Absent: tachycardia - *Routine Abdominal Exam Present: soft Comments: Incision healing without sign of infection. Serous drainage from Petros- Mcintyre's.
--- NOTE | 2022-05-27 09:04 | HMH.ACPN2 ---
Internal Medicine - PN: Subj *Date: 05/27/22 *Time: 09:04 Interval history: Patient with no new complaints today, PT eval done and reviewed. Exam Vital signs and Labs for Last 24 Hours: Temp Pulse Resp BP Pulse Ox 97.8 F 109 H 20 141/61 H 95 05/27/22 07:40 05/27/22 08:33 05/27/22 07:40 05/27/22 07:40 05/27/22 07:40 Vital Signs - 24 hr 05/26/22 09:18 05/26/22 10:00 05/26/22 11:30 Temperature 97.8 F Pulse Rate 117 H Pulse Rate [Apical] 82 84 Respiratory Rate 22 20 Blood Pressure 131/51 L Blood Pressure [Left Arm] 109/66 L 107/59 L 02 Sat by Pulse Oximetry 93 L 94 L 05/26/22 12:00 05/26/22 16:00 05/26/22 20:00 Temperature 98.1 F 98.0 F Pulse Rate 90 80 79 Pulse Rate [Apical] 73 89 Respiratory Rate 18 20 Blood Pressure Blood Pressure [Left Arm] 126/68 156/68 H 02 Sat by Pulse Oximetry 95 95 05/27/22 00:00 05/27/22 04:00 05/27/22 07:40 Temperature 99.1 F 97.8 F 97.8 F Pulse Rate 87 75 Pulse Rate [Apical] 83 89 102 H Respiratory Rate 20 18 20 Blood Pressure Blood Pressure [Left Arm] 148/87 H 127/73 141/61 H 02 Sat by Pulse Oximetry 94 L 96 95 05/27/22 08:33 Temperature Pulse Rate 109 H Pulse Rate [Apical] Respiratory Rate Blood Pressure Blood Pressure [Left Arm] 02 Sat by Pulse Oximetry I & O for Last 24 hours: Intake & Output 05/24/22 05/25/22 05/26/22 05/27/22 23:59 23:59 23:59 23:59 Intake Total 2050 / 2050 1078 / 1078 1680 / 1680 927 / 927 Output Total 1140 / 1140 420 / 1020 1660 / 1660 1000 / 1000 Balance 911 / 911 658 / 58 20 / 20 -73 / -73 Weight 173 lb 7 oz 184 lb 9 oz 177 lb 1 oz 170 lb - Constitutional no acute distress - *Routine Respiratory Exam Present: CTA bilaterally - *Routine Cardiovascular Exam Present: irregularly irregular - *Routine Neurological Exam Present: alert Assessment and Plan (1) Acute cholecystitis Status: Acute Category: Medical Code(s): K81.0 - Acute cholecystitis (2) Urinary tract infection Status: Acute Qualifiers: Urinary tract infection type: site unspecified Hematuria presence: without hematuria Qualified Code(s): N39.0 - Urinary tract infection, site not specified Category: Medical Code(s): N39.0 - Urinary tract infection, site not specified (3) Hypokalemia Status: Acute Category: Medical Code(s): E87.6 - Hypokalemia (4) C. 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 (6) Mild cognitive impairment Status: Deleted Category: Medical Code(s): G31.84 - Mild cognitive impairment, so stated (7) Atrial fibrillation Status: Acute Qualifiers: Atrial fibrillation type: unspecified Qualified Code(s): I48.91 - Unspecified atrial fibrillation Category: Medical Code(s): I48.91 - Unspecified atrial fibrillation (8) History of cerebral aneurysm Status: Acute Category: Medical Code(s): Z86.79 - Personal history of other diseases of the circulatory system (9) Atrial fibrillation with rapid ventricular response Status: Acute Category: Medical Code(s): I48.91 - Unspecified atrial fibrillation (10) Rash Status: Acute Category: Medical Code(s): R21 - Rash and other nonspecific skin eruption - Assessment and plan all Dx Assessment and Plan for all problems:: Will increase cardizem dose today, care management to discuss short term SNF placement with .
--- NOTE | 2022-05-27 09:45 | SW/DCPLANNER ---
Addendum entered by Keysha Hess 05/30/22 10:48: This patient has been approved for [facility] today pending negative COVID swab. I will inform MD and nursing staff. Addendum entered by Keysha Hess 05/29/22 13:54: Precert is still pending at this time. Addendum entered by Keysha Hess 05/28/22 07:56: Amy w/ [facility] stated that she can accept this patient pending authorization from insurance. I will continue to follow up with patient's family and [facility] Original Note: I attempted to speak with this patient this AM regarding discharge plans: patient is confused at this time. I called and spoke with patient's regarding discharge plans. I explained to that PT has recommended SNF level of care at time of discharge. Patient stated that patient has been to [facility] in the past and prefers to discharge back to [facility] for SNF level of care. I will follow up with Amy at [facility] this AM and fax patient information if beds are available.
--- NOTE | 2022-05-27 19:15 | PC.NURSE ---
shift summary: [facility]. Knows name. Has been pleasant. Continues in Afib controlled. Rate better controlled with increase in Diltiazem. Has had 3 BMs. Incontinent of B/B. Wears brief. Sat in chair for aprox 3-4hrs today. Has D51/2NS+20K infusing @ 50mL/hr. Incisions with alfredo VINITA. No s/s infection noted. Chair or bed alarm on. Stage II to coccyx. Groin excoriated/yeast, Nystatin applied. No stool odor from (2) MIKIE drains.
--- NOTE | 2022-05-27 23:42 | PC.NURSE ---
pt , very confused and agitated, pt would not let SRNA Bria take vitals signs and refused to be turned at this time
[2022-05-28] VITALS (7 sets, daily range): BP systolic 124–155; BP diastolic 80–100; PULSE 73–103; RESP 16–23; TEMP 36.6–36.9; O2SAT 94–96; BMI 25.2
--- NOTE | 2022-05-28 01:51 | PC.NURSE ---
pt had large bm and voided, very excoriated perineal area, cleaned pt up, changed chux, and applied nystatin cream to front and barrier cream to gluteal folds, left depends off and placed purewick on pt
--- NOTE | 2022-05-28 05:48 | PC.NURSE ---
pt rested intermittently this shift, pt very agitated this shift and resistant to care, pt refused to have her vital signs taken at 0000 and 0400, pt oriented to self only, pt did not complain of any pain throughout shift, pt in controlled afib on tele, pt has intermittent loose cough and diminished lung sounds, 1 loose BM this shift, pt incontinent of bowel and bladder
[2022-05-28 06:34] LABS: Basophils % 0.6 % (0.1-2.0); Eosinophils # 0.1 K/mm3 (0.0-0.4); Eosinophils % 2.3 % (0.1-12.0); Hemoglobin 11.7 g/dL (12.2-16.2); Lymphocytes # 1.3 K/mm3 (0.7-4.5); Lymphocytes % 24.2 % (10-50); Mean Corpuscular HGB Conc 33.6 g/dL (31.8-35.4); Mean Corpuscular Volume 95.2 fl (81-99); Mean Platelet Volume 7.9 fl (7.4-10.4); Monocytes # 0.4 K/mm3 (0.1-1.0); Monocytes % 7.2 % (1.7-9.3); Neutrophils # 3.4 K/mm3 (1.8-7.8); Neutrophils % 65.7 % (37.0-80.0); Platelet Count 200 K/mm3 (142-424); Red Blood Count 3.67 M/mm3 (4.20-5.40); Red Cell Distribution Width 14.9 % (11.5-17.5); White Blood Count 5.2 K/mm3 (4.8-10.8)
[2022-05-28 06:40] LABS: Anion Gap 4.6 mEq/L (5-15); Blood Urea Nitrogen 5 mg/dl (7-17); Calcium 7.9 mg/dl (8.4-10.2); Carbon Dioxide 28 mmol/L (22.0-30.0); Chloride 107 mmol/L (98-107); Creatinine Clearance Estimated 59 mL/min (50-200); Estimated Glomerular Filt Rate 82 ml/min (>60); GFR (African American) 99 ML/MIN (>60); Glucose 102 mg/dl (74-100); Potassium 3.6 mmoL/L (3.5-5.1); Sodium 136 mmol/L (136-145)
--- NOTE | 2022-05-28 08:34 | HMH.ACPN2 ---
Internal Medicine - PN: Subj *Date: 05/28/22 *Time: 08:34 Interval history: Patient with no new complaint this morning. Eating her breakfast. Exam Vital signs and Labs for Last 24 Hours: Temp Pulse Resp BP Pulse Ox 99.2 F 86 16 131/86 95 05/27/22 20:00 05/28/22 04:00 05/28/22 04:00 05/27/22 20:00 05/27/22 20:00 Laboratory Results - last 24 hr 05/28/22 06:03: WBC 5.2 D, RBC 3.67 L, Hgb 11.7 L, Hct 35.0 L, MCV 95.2, MCH 32.0 H, MCHC 33.6, RDW 14.9, Plt Count 200, MPV 7.9, Neut % (Auto) 65.7, Lymph % (Auto) 24.2, [place] % (Auto) 7.2, Eos % (Auto) 2.3, Baso % (Auto) 0.6, Neut # (Auto) 3.4, Lymph # (Auto) 1.3, [place] # (Auto) 0.4, Eos # (Auto) 0.1, Baso # (Auto) 0.0 05/28/22 06:03: Sodium 136, Potassium 3.6, Chloride 107, Carbon Dioxide 28, Anion Gap 4.6 L, BUN 5 L D, Creatinine 0.70, Estimated Creat Clear 59, Estimated GFR 82, Est GFR ( Amer) 99, Glucose 102 H, Calcium 7.9 L Vital Signs - 24 hr 05/27/22 11:54 05/27/22 12:00 05/27/22 15:23 Temperature 98.0 F 98.0 F Pulse Rate 85 Pulse Rate [Apical] 92 H 86 Respiratory Rate 16 18 Blood Pressure [Left Arm] 139/65 151/88 H 02 Sat by Pulse Oximetry 90 L 94 L 05/27/22 16:00 05/27/22 20:00 05/28/22 00:00 Temperature 99.2 F Pulse Rate 81 85 80 Pulse Rate [Apical] 90 88 Respiratory Rate 25 H 23 Blood Pressure [Left Arm] 131/86 02 Sat by Pulse Oximetry 95 05/28/22 04:00 Temperature Pulse Rate 91 H Pulse Rate [Apical] 86 Respiratory Rate 16 Blood Pressure [Left Arm] 02 Sat by Pulse Oximetry I & O for Last 24 hours: Intake & Output 05/25/22 05/26/22 05/27/22 05/28/22 23:59 23:59 23:59 23:59 Intake Total 1078 / 1078 1680 / 1680 1709 / 1709 120 / 120 Output Total 420 / 1020 1660 / 1660 1040 / 1040 122 / 122 Balance 658 / 58 669 / 669 -2 / -2 Weight 184 lb 9 oz 177 lb 1 oz 170 lb 170 lb 3.2 oz - Constitutional no acute distress - *Routine HEENT Exam Head: Present: normocephalic Eye: Present: EOMI, PERRL ENT: Present: mucous membranes moist - *Routine Respiratory Exam Present: CTA bilaterally - *Routine Cardiovascular Exam Present: irregularly irregular - *Routine Extremities Exam Absent: cyanosis, clubbing, edema - *Routine Skin Exam Comments: dry skin on legs, wound on anterior leg is healing - *Routine Neurological Exam Present: alert (cooperative, memory loss apparent) Assessment and Plan (1) Acute cholecystitis Status: Acute Category: Medical Code(s): K81.0 - Acute cholecystitis (2) Urinary tract infection Status: Acute Qualifiers: Urinary tract infection type: site unspecified Hematuria presence: without hematuria Qualified Code(s): N39.0 - Urinary tract infection, site not specified Category: Medical Code(s): N39.0 - Urinary tract infection, site not specified (3) Hypokalemia Status: Acute Category: Medical Code(s): E87.6 - Hypokalemia (4) C. 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 (6) Mild cognitive impairment Status: Deleted Category: Medical Code(s): G31.84 - Mild cognitive impairment, so stated (7) Atrial fibrillation Status: Acute Qualifiers: Atrial fibrillation type: unspecified Qualified Code(s): I48.91 - Unspecified atrial fibrillation Category: Medical Code(s): I48.91 - Unspecified atrial fibrillation (8) History of cerebral aneurysm Status: Acute Category: Medical Code(s): Z86.79 - Personal history of other diseases of the circulatory system (9) Atrial fibrillation with rapid ventricular response Status: Acute Category: Medical Code(s): I48.91 - Unspecified atrial fibrillation (10) Rash Status: Acute Category: Medical Code(s): R21 - Rash and other nonspecific skin eruption
--- NOTE | 2022-05-28 08:35 | HMH.GSPN ---
Subjective Patient reports: no new complaints Progress Note: A&P (1) Acute cholecystitis Status: Acute Assessment and plan: Overall, continuing to progress status post open cholecystectomy. Minimal amount of serous drainage noted in Petros-Mcintyre's. Petros-Mcintyre's removed One half of alfredo to be removed (2) Urinary tract infection Status: Acute (3) Hypokalemia Status: Acute (4) C. difficile colitis Status: Acute (5) Cryptosporidial gastroenteritis Status: Acute (6) Mild cognitive impairment Status: Deleted (7) Atrial fibrillation Status: Acute (8) History of cerebral aneurysm Status: Acute (9) Atrial fibrillation with rapid ventricular response Status: Acute (10) Rash Status: Acute Exam Vital signs and Labs for Last 24 Hours: Temp Pulse Resp BP Pulse Ox 99.2 F 86 16 131/86 95 05/27/22 20:00 05/28/22 04:00 05/28/22 04:00 05/27/22 20:00 05/27/22 20:00 Laboratory Results - last 24 hr 05/28/22 06:03: WBC 5.2 D, RBC 3.67 L, Hgb 11.7 L, Hct 35.0 L, MCV 95.2, MCH 32.0 H, MCHC 33.6, RDW 14.9, Plt Count 200, MPV 7.9, Neut % (Auto) 65.7, Lymph % (Auto) 24.2, [place] % (Auto) 7.2, Eos % (Auto) 2.3, Baso % (Auto) 0.6, Neut # (Auto) 3.4, Lymph # (Auto) 1.3, [place] # (Auto) 0.4, Eos # (Auto) 0.1, Baso # (Auto) 0.0 05/28/22 06:03: Sodium 136, Potassium 3.6, Chloride 107, Carbon Dioxide 28, Anion Gap 4.6 L, BUN 5 L D, Creatinine 0.70, Estimated Creat Clear 59, Estimated GFR 82, Est GFR ( Amer) 99, Glucose 102 H, Calcium 7.9 L I & O for Last 24 hours: Intake & Output 05/25/22 05/26/22 05/27/22 05/28/22 11:59 11:59 11:59 11:59 Intake Total 1271 / 1271 2491 / 2491 1047 / 1047 902 / 902 Output Total 1100 / 1100 1620 / 1620 1060 / 1060 162 / 162 Balance 171 / 171 871 / 871 -13 / -13 740 / 740 Weight 184 lb 9 oz 177 lb 1 oz 170 lb 170 lb 3.2 oz - Constitutional no acute distress - *Routine Respiratory Exam Absent: respiratory distress - *Routine Abdominal Exam Comments: Incision healing without sign of infection. Small amount of serous fluid noted in Petros-Mcintyre drains.
--- NOTE | 2022-05-28 16:21 | PC.NURSE ---
Addendum entered by Tegan Davenport RN 05/28/22 18:37: per Dr Leiva every other staple removed from abdominal incision and steri strips applied. pt tolerated poorly. pt was noted to cuss vigorously at staff during removal. Original Note: pt has had several bm this shift. she is positive for cryptosporidium and cdiff. pt is incontinent of bowel and bladder. purewick is in use, brief NOT in use r/t yeast/redness in candelario area. pt does have excoriated areas to coccyx noted. barrier cream applied as needed. lungs are clear, bowel sounds active. pt has been very confused this shift, when conversing with staff she appears confident as to what she is saying. but statement makes no sense what so ever.
[2022-05-29] VITALS (7 sets, daily range): BP systolic 126–150; BP diastolic 72–91; PULSE 80–108; RESP 16–20; TEMP 36.6–37; O2SAT 95–96; BMI 25.4
--- NOTE | 2022-05-29 06:35 | HMH.GSPN ---
Subjective Patient reports: no new complaints Progress Note: A&P (1) Acute cholecystitis Status: Acute Assessment and plan: Overall, doing fairly well status post open cholecystectomy. Drains have now been removed. Close outpatient follow-up (2) Urinary tract infection Status: Acute (3) Hypokalemia Status: Acute (4) C. difficile colitis Status: Acute (5) Cryptosporidial gastroenteritis Status: Acute (6) Mild cognitive impairment Status: Deleted (7) Atrial fibrillation Status: Acute (8) History of cerebral aneurysm Status: Acute (9) Atrial fibrillation with rapid ventricular response Status: Acute (10) Rash Status: Acute Exam Vital signs and Labs for Last 24 Hours: Temp Pulse Resp BP Pulse Ox 98 F 89 16 141/76 H 96 05/29/22 04:00 05/29/22 04:00 05/29/22 04:00 05/29/22 04:00 05/29/22 04:00 Laboratory Results - last 24 hr 05/28/22 06:03: WBC 5.2 D, RBC 3.67 L, Hgb 11.7 L, Hct 35.0 L, MCV 95.2, MCH 32.0 H, MCHC 33.6, RDW 14.9, Plt Count 200, MPV 7.9, Neut % (Auto) 65.7, Lymph % (Auto) 24.2, [place] % (Auto) 7.2, Eos % (Auto) 2.3, Baso % (Auto) 0.6, Neut # (Auto) 3.4, Lymph # (Auto) 1.3, [place] # (Auto) 0.4, Eos # (Auto) 0.1, Baso # (Auto) 0.0 05/28/22 06:03: Sodium 136, Potassium 3.6, Chloride 107, Carbon Dioxide 28, Anion Gap 4.6 L, BUN 5 L D, Creatinine 0.70, Estimated Creat Clear 59, Estimated GFR 82, Est GFR ( Amer) 99, Glucose 102 H, Calcium 7.9 L I & O for Last 24 hours: Intake & Output 05/26/22 05/27/22 05/28/22 05/29/22 11:59 11:59 11:59 11:59 Intake Total 2491 / 2491 1047 / 1047 1142 / 1142 960 / 960 Output Total 1620 / 1620 1060 / 1060 162 / 162 950 / 950 Balance 871 / 871 -13 / -13 980 / 980 Weight 177 lb 1 oz 170 lb 170 lb 3.2 oz 171 lb 8 oz - Constitutional no acute distress - *Routine Respiratory Exam Absent: respiratory distress - *Routine Cardiovascular Exam Absent: tachycardia - *Routine Abdominal Exam Comments: Incision healing without sign of infection. One half of alfredo removed yesterday. Drains removed yesterday.
--- NOTE | 2022-05-29 07:06 | PC.NURSE ---
asked pt if wanted to get up to chair for breakfast, pt declined
--- NOTE | 2022-05-29 08:29 | HMH.ACPN2 ---
<Estefanía Bryan - Last Filed: 05/29/22 08:29> Internal Medicine - PN: Subj *Date: 05/29/22 *Time: 08:29 Interval history: The patient is a bit confused this morning. She states she continues with some abdominal pain but it has improved. She ate breakfast this morning and tolerated it well. Exam Vital signs and Labs for Last 24 Hours: Temp Pulse Resp BP Pulse Ox 98 F 89 16 141/76 H 96 05/29/22 04:00 05/29/22 04:00 05/29/22 04:00 05/29/22 04:00 05/29/22 04:00 I & O for Last 24 hours: Intake & Output 05/26/22 05/27/22 05/28/22 05/29/22 11:59 11:59 11:59 11:59 Intake Total 2491 / 2491 1047 / 1047 1142 / 1142 960 / 960 Output Total 1620 / 1620 1060 / 1060 162 / 162 950 / 950 Balance 871 / 871 -13 / -13 980 / 980 10 / 10 Weight 177 lb 1 oz 170 lb 170 lb 3.2 oz 171 lb 8 oz - Constitutional no acute distress - *Routine Respiratory Exam Present: CTA bilaterally - *Routine Cardiovascular Exam Present: RRR - *Routine Abdominal Exam Present: soft, normoactive bowel sounds, tenderness, surgical scars Comments: around incision sites - *Routine Extremities Exam Absent: cyanosis, clubbing, edema - *Routine Skin Exam Present: warm. Absent: rash - *Routine Neurological Exam Present: alert (confused at times) Assessment and Plan (1) Acute cholecystitis Status: Acute Category: Medical Code(s): K81.0 - Acute cholecystitis (2) Urinary tract infection Status: Acute Qualifiers: Urinary tract infection type: site unspecified Hematuria presence: without hematuria Qualified Code(s): N39.0 - Urinary tract infection, site not specified Category: Medical Code(s): N39.0 - Urinary tract infection, site not specified (3) Hypokalemia Status: Acute Category: Medical Code(s): E87.6 - Hypokalemia (4) C. 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 (6) Mild cognitive impairment Status: Deleted Category: Medical Code(s): G31.84 - Mild cognitive impairment, so stated (7) Atrial fibrillation Status: Acute Qualifiers: Atrial fibrillation type: unspecified Qualified Code(s): I48.91 - Unspecified atrial fibrillation Category: Medical Code(s): I48.91 - Unspecified atrial fibrillation (8) History of cerebral aneurysm Status: Acute Category: Medical Code(s): Z86.79 - Personal history of other diseases of the circulatory system (9) Atrial fibrillation with rapid ventricular response Status: Acute Category: Medical Code(s): I48.91 - Unspecified atrial fibrillation (10) Rash Status: Acute Category: Medical Code(s): R21 - Rash and other nonspecific skin eruption - Assessment and plan all Dx Assessment and Plan for all problems:: Dr. Leiva saw the patient this morning. Half of the alfredo and the drains were around incision sites removed yesterday. Will discuss further care with Dr. Galvez. <Gera Galvez - Last Filed: 05/29/22 08:41> Internal Medicine - PN: Subj *Date: 05/29/22 *Time: 08:40 Exam Vital signs and Labs for Last 24 Hours: Temp Pulse Resp BP Pulse Ox 98 F 89 16 141/76 H 96 05/29/22 04:00 05/29/22 04:00 05/29/22 04:00 05/29/22 04:00 05/29/22 04:00 I & O for Last 24 hours: Intake & Output 05/26/22 05/27/22 05/28/22 05/29/22 23:59 23:59 23:59 23:59 Intake Total 1680 / 1680 1709 / 1709 1320 / 1320 Output Total 1660 / 1660 1040 / 1040 372 / 372 700 / 700 Balance 669 / 669 948 / 948 -700 / -700 Weight 177 lb 1 oz 170 lb 170 lb 3.2 oz 171 lb 8 oz Assessment and Plan (1) Acute cholecystitis Status: Acute Category: Medical Code(s): K81.0 - Acute cholecystitis (2) Urinary tract infection Status: Acute Qualifiers: Urinary tract infection type:
--- NOTE | 2022-05-29 10:11 | HMH.ACPN ---
Internal Medicine - PN: Subj *Date: 05/29/22 *Time: 10:11 Exam Vital signs and Labs for Last 24 Hours: Temp Pulse Resp BP Pulse Ox 98.6 F 96 H 16 137/91 H 96 05/29/22 08:00 05/29/22 09:56 05/29/22 08:00 05/29/22 08:00 05/29/22 08:00 I & O for Last 24 hours: Intake & Output 05/26/22 05/27/22 05/28/22 05/29/22 23:59 23:59 23:59 23:59 Intake Total 1680 / 1680 1709 / 1709 1320 / 1320 Output Total 1660 / 1660 1040 / 1040 372 / 372 700 / 700 Balance 669 / 669 948 / 948 -700 / -700 Weight 80.314 kg 77.111 kg 77.201 kg 77.791 kg Assessment and Plan (1) Acute cholecystitis Status: Acute Category: Medical Code(s): K81.0 - Acute cholecystitis (2) Urinary tract infection Status: Acute Qualifiers: Urinary tract infection type: site unspecified Hematuria presence: without hematuria Qualified Code(s): N39.0 - Urinary tract infection, site not specified Category: Medical Code(s): N39.0 - Urinary tract infection, site not specified (3) Hypokalemia Status: Acute Category: Medical Code(s): E87.6 - Hypokalemia (4) C. 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 (6) Mild cognitive impairment Status: Deleted Category: Medical Code(s): G31.84 - Mild cognitive impairment, so stated (7) Atrial fibrillation Status: Acute Qualifiers: Atrial fibrillation type: unspecified Qualified Code(s): I48.91 - Unspecified atrial fibrillation Category: Medical Code(s): I48.91 - Unspecified atrial fibrillation (8) History of cerebral aneurysm Status: Acute Category: Medical Code(s): Z86.79 - Personal history of other diseases of the circulatory system (9) Atrial fibrillation with rapid ventricular response Status: Acute Category: Medical Code(s): I48.91 - Unspecified atrial fibrillation (10) Rash Status: Acute Category: Medical Code(s): R21 - Rash and other nonspecific skin eruption The patient's infection will respond to the chosen ABx?: Yes Is the patient receiving the right drug, dose, and route?: Yes Could a more targeted ABx be ordered?: No (WBC WNL, AFEBRILE.)
--- NOTE | 2022-05-29 12:43 | HMH.DCSUM ---
General - General Admission date:: 05/19/22 Discharge date: 05/30/22 HPI HPI: Patient is a poor historian. She notes that she did have diarrhea with nausea and vomiting for the previous 4 days. Her gave her some Pepto-Bismol yesterday. She has had no further diarrhea since admission. She denies abdominal pain and nausea this morning. ER note as follows: On reevaluation, the patient is feeling better. CT findings are concerning for acute cholecystitis. The patient's abdominal examination does not show any evidence of acute abdomen. No leukocytosis. Hemodynamically stable. We did start the patient on antibiotics for UTI as well as acute cholecystitis. General surgery was consulted. Patient be admitted to hospital for further evaluation and treatment. (Bobby Vega) Medical Decision Narrative: talking with patient and she was not answering appropriately states that she has been more confused than normal and not acting herself States that she does have hx of brain aneurysm and UTI that sometimes causes this and has been septic due to UTI, states that she hasnt been able to keep anything down with N/V/D and diarrhea dark in color worried it may have blood in it but states that her color is bad and he was worried so he brought her in Spoke with and due to patient complaints recommended transfer to the ED for further work up and evaluation and agreed Called ED spoke with [facility] and patient was moved to room 7 (Mirlande Marquez) Patient was also seen by surgeon, Dr. Maki, with the following documentation: Assessment and Plan for all problems:: I reviewed her CT scan. This does reveal markedly abnormal gallbladder with almost phlegmon type formation in the surrounding tissues. Presently the patient does not appear as ill as would be expected based on the imaging findings. Recommend admission for IV fluids and antibiotics. Plan for definitive gallbladder ultrasound. May need cardiology evaluation given her history of rapid atrial fibrillation recently. Send stool studies. Documented By: Bryan Maki MD 05/19/22 2942 This a.m. patient denies chest pain, shortness of breath, nausea, and abdominal pain. She does not recall having any further diarrhea stools. In the emergency room she was felt to have a UTI. She was started on Rocephin IV.SHe had a CT of the abdomen which which revealed markedly abnormal gallbladder with wall thickening, stones, and surrounding inflammatory reaction highly concerning for acute cholecystitis. Stool panel shows C. difficile and Cryptosporidium. Labs this morning show hypokalemia with potassium of 3.1. Renal function is good. White blood cell has remained normal with a hemoglobin of 13.5 and hematocrit of 40.6 this a.m. Hospital Course Hospital Course: The patient was started on Flagyl for C. difficile and Rocephin as well. She was also started on IV potassium due to hypokalemia. A gallbladder ultrasound was ordered. Alinia was also added. She was seen in consultation by Dr. Maki who recommended IV fluids and antibiotics along with the ultrasound. The ultrasound showed acute cholecystitis. She was then seen by Dr. Arguello who wanted to do a cholecystectomy. Her colitis did improve and her urine culture came back positive for Enterobacter cloacae A. Her symptoms for this improved as well but she began having right upper quadrant pain. She was taken to the OR on 09/23/2022 for acute cholecystitis and had a severely inflamed phlegmonous abscess gallbladder. She had to have an open cholecystectomy as well as a diagnostic laparoscopy. She had numerous moderately large gallstones and the gallbladder was densely adherent to the colon at the hepatic flexure. There was concern for possible cholecysto?colonic fistula. She did go into A. fib with RVR after surgery and had to be started on a Cardizem drip. Her heart r
[2022-05-30] VITALS: BP 128/68; PULSE 90; PULSE 94; RESP 22; TEMP 36.8; O2SAT 95
[2022-05-30 04:00] VITALS: BP 130/64; PULSE 80; PULSE 88; RESP 20; TEMP 36.7; O2SAT 95
--- NOTE | 2022-05-30 04:15 | PC.NURSE ---
patient has been resistive to care this shift. she is confused, and attempts to scratch, kick, hit and bite staff, while the provide care to patient. she has been incontinent of bowel and bladder. she has had 2 loose bms one after the other, no specific complaints or concerns noted. redness to bottom looks better, but excoriation to groin. attempts at q2 turns have been made.
[2022-05-30 04:33] VITALS: BMI 25.4
[2022-05-30 06:31] LABS: Basophils % 0.5 % (0.1-2.0); Eosinophils # 0.1 K/mm3 (0.0-0.4); Eosinophils % 2.1 % (0.1-12.0); Hemoglobin 12.3 g/dL (12.2-16.2); Lymphocytes # 1.3 K/mm3 (0.7-4.5); Lymphocytes % 21.1 % (10-50); Mean Corpuscular HGB Conc 33.1 g/dL (31.8-35.4); Mean Corpuscular Hemoglobin 32.1 pg (27.0-31.2); Mean Corpuscular Volume 96.9 fl (81-99); Mean Platelet Volume 8.1 fl (7.4-10.4); Monocytes # 0.4 K/mm3 (0.1-1.0); Neutrophils # 4.5 K/mm3 (1.8-7.8); Neutrophils % 70.3 % (37.0-80.0); Platelet Count 231 K/mm3 (142-424); Red Blood Count 3.82 M/mm3 (4.20-5.40); Red Cell Distribution Width 15.2 % (11.5-17.5); White Blood Count 6.4 K/mm3 (4.8-10.8)
[2022-05-30 07:05] LABS: Anion Gap 9.5 mEq/L (5-15); Blood Urea Nitrogen 7 mg/dl (7-17); Calcium 8.1 mg/dl (8.4-10.2); Carbon Dioxide 25 mmol/L (22.0-30.0); Chloride 106 mmol/L (98-107); Creatinine Clearance Estimated 60 mL/min (50-200); Estimated Glomerular Filt Rate 82 ml/min (>60); GFR (African American) 99 ML/MIN (>60); Glucose 146 mg/dl (74-100); Potassium 3.5 mmoL/L (3.5-5.1); Sodium 137 mmol/L (136-145)
--- NOTE | 2022-05-30 07:19 | HMH.GSPN ---
Subjective Narrative: She states that she feels fine . She has been intermittently combative with nursing. Progress Note: A&P (1) Acute cholecystitis Status: Acute Assessment and plan: Overall, doing well status post open cholecystectomy. Awaiting placement. Remove remainder of alfredo. (2) Urinary tract infection Status: Acute (3) Hypokalemia Status: Acute (4) C. difficile colitis Status: Acute (5) Cryptosporidial gastroenteritis Status: Acute (6) Mild cognitive impairment Status: Deleted (7) Atrial fibrillation Status: Acute (8) History of cerebral aneurysm Status: Acute (9) Atrial fibrillation with rapid ventricular response Status: Acute (10) Rash Status: Acute Exam Vital signs and Labs for Last 24 Hours: Temp Pulse Resp BP Pulse Ox 98.0 F 88 20 130/64 95 05/30/22 04:00 05/30/22 04:00 05/30/22 04:00 05/30/22 04:00 05/30/22 04:00 Laboratory Results - last 24 hr 05/30/22 06:09: WBC 6.4, RBC 3.82 L, Hgb 12.3, Hct 37.0, MCV 96.9, MCH 32.1 H, MCHC 33.1, RDW 15.2, Plt Count 231, MPV 8.1, Neut % (Auto) 70.3, Lymph % (Auto) 21.1, Towner % (Auto) 6.0, Eos % (Auto) 2.1, Baso % (Auto) 0.5, Neut # (Auto) 4.5, Lymph # (Auto) 1.3, Towner # (Auto) 0.4, Eos # (Auto) 0.1, Baso # (Auto) 0.0 05/30/22 06:09: Sodium 137, Potassium 3.5, Chloride 106, Carbon Dioxide 25, Anion Gap 9.5, BUN 7 D, Creatinine 0.70, Estimated Creat Clear 60, Estimated GFR 82, Est GFR ( Amer) 99, Glucose 146 H, Calcium 8.1 L I & O for Last 24 hours: Intake & Output 05/27/22 05/28/22 05/29/22 05/30/22 11:59 11:59 11:59 11:59 Intake Total 1047 / 1047 1142 / 1142 1080 / 1080 2193 / 2193 Output Total 1060 / 1060 162 / 162 950 / 950 300 / 300 Balance -13 / -13 980 / 980 130 / 130 1893 / 1893 Weight 170 lb 170 lb 3.2 oz 171 lb 8 oz 171 lb 9 oz - Constitutional no acute distress - *Routine Respiratory Exam Absent: respiratory distress - *Routine Cardiovascular Exam Absent: tachycardia - *Routine Abdominal Exam Present: soft
--- NOTE | 2022-05-30 07:45 | PC.NURSE ---
Notified pts that pt had moved rooms.
[2022-05-30 08:00] VITALS: BP 122/65; PULSE 88; PULSE 98; RESP 18; TEMP 36.8; O2SAT 95
--- NOTE | 2022-05-30 08:43 | HMH.ACPN2 ---
Internal Medicine - PN: Subj *Date: 05/30/22 *Time: 08:43 Exam Vital signs and Labs for Last 24 Hours: Temp Pulse Resp BP Pulse Ox 98.0 F 88 20 130/64 95 05/30/22 04:00 05/30/22 04:00 05/30/22 04:00 05/30/22 04:00 05/30/22 04:00 Laboratory Results - last 24 hr 05/30/22 06:09: WBC 6.4, RBC 3.82 L, Hgb 12.3, Hct 37.0, MCV 96.9, MCH 32.1 H, MCHC 33.1, RDW 15.2, Plt Count 231, MPV 8.1, Neut % (Auto) 70.3, Lymph % (Auto) 21.1, [place] % (Auto) 6.0, Eos % (Auto) 2.1, Baso % (Auto) 0.5, Neut # (Auto) 4.5, Lymph # (Auto) 1.3, [place] # (Auto) 0.4, Eos # (Auto) 0.1, Baso # (Auto) 0.0 05/30/22 06:09: Sodium 137, Potassium 3.5, Chloride 106, Carbon Dioxide 25, Anion Gap 9.5, BUN 7 D, Creatinine 0.70, Estimated Creat Clear 60, Estimated GFR 82, Est GFR ( Amer) 99, Glucose 146 H, Calcium 8.1 L I & O for Last 24 hours: Intake & Output 05/27/22 05/28/22 05/29/22 05/30/22 23:59 23:59 23:59 23:59 Intake Total 1709 / 1709 1320 / 1320 1758 / 1758 555 / 555 Output Total 1040 / 1040 372 / 372 700 / 1000 300 / 300 Balance 669 / 669 948 / 948 1058 / 758 255 / 255 Weight 77.111 kg 77.201 kg 77.791 kg 77.819 kg Assessment and Plan (1) Acute cholecystitis Status: Acute Category: Medical Code(s): K81.0 - Acute cholecystitis (2) Urinary tract infection Status: Acute Qualifiers: Urinary tract infection type: site unspecified Hematuria presence: without hematuria Qualified Code(s): N39.0 - Urinary tract infection, site not specified Category: Medical Code(s): N39.0 - Urinary tract infection, site not specified (3) Hypokalemia Status: Acute Category: Medical Code(s): E87.6 - Hypokalemia (4) C. 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 (6) Mild cognitive impairment Status: Deleted Category: Medical Code(s): G31.84 - Mild cognitive impairment, so stated (7) Atrial fibrillation Status: Acute Qualifiers: Atrial fibrillation type: unspecified Qualified Code(s): I48.91 - Unspecified atrial fibrillation Category: Medical Code(s): I48.91 - Unspecified atrial fibrillation (8) History of cerebral aneurysm Status: Acute Category: Medical Code(s): Z86.79 - Personal history of other diseases of the circulatory system (9) Atrial fibrillation with rapid ventricular response Status: Acute Category: Medical Code(s): I48.91 - Unspecified atrial fibrillation (10) Rash Status: Acute Category: Medical Code(s): R21 - Rash and other nonspecific skin eruption The patient's infection will respond to the chosen ABx?: Yes (E. CLOACAE, ROCEPHIN SUSCEPTIBLE) Is the patient receiving the right drug, dose, and route?: Yes Could a more targeted ABx be ordered?: No
--- NOTE | 2022-05-30 08:49 | HMH.ACPN2 ---
<Estefanía Bryan - Last Filed: 05/30/22 08:49> Internal Medicine - PN: Subj *Date: 05/30/22 *Time: 08:49 Interval history: Patient states she is feeling well this morning. She slept off and on throughout the night. She did eat her breakfast. Her pain is controlled. Exam Vital signs and Labs for Last 24 Hours: Temp Pulse Resp BP Pulse Ox 98.0 F 88 20 130/64 95 05/30/22 04:00 05/30/22 08:00 05/30/22 04:00 05/30/22 04:00 05/30/22 04:00 Laboratory Results - last 24 hr 05/30/22 06:09: WBC 6.4, RBC 3.82 L, Hgb 12.3, Hct 37.0, MCV 96.9, MCH 32.1 H, MCHC 33.1, RDW 15.2, Plt Count 231, MPV 8.1, Neut % (Auto) 70.3, Lymph % (Auto) 21.1, Smith % (Auto) 6.0, Eos % (Auto) 2.1, Baso % (Auto) 0.5, Neut # (Auto) 4.5, Lymph # (Auto) 1.3, Smith # (Auto) 0.4, Eos # (Auto) 0.1, Baso # (Auto) 0.0 05/30/22 06:09: Sodium 137, Potassium 3.5, Chloride 106, Carbon Dioxide 25, Anion Gap 9.5, BUN 7 D, Creatinine 0.70, Estimated Creat Clear 60, Estimated GFR 82, Est GFR ( Amer) 99, Glucose 146 H, Calcium 8.1 L I & O for Last 24 hours: Intake & Output 05/27/22 05/28/22 05/29/22 05/30/22 11:59 11:59 11:59 11:59 Intake Total 1047 / 1047 1142 / 1142 1080 / 1080 2193 / 2193 Output Total 1060 / 1060 162 / 162 950 / 950 300 / 300 Balance -13 / -13 980 / 980 130 / 130 1893 / 1893 Weight 170 lb 170 lb 3.2 oz 171 lb 8 oz 171 lb 9 oz - Constitutional no acute distress - *Routine Respiratory Exam Present: CTA bilaterally - *Routine Cardiovascular Exam Present: RRR - *Routine Abdominal Exam Present: soft, normoactive bowel sounds, tenderness (Around the surgical site) - *Routine Extremities Exam Absent: cyanosis, clubbing, edema - *Routine Skin Exam Present: warm. Absent: rash - *Routine Neurological Exam Present: alert, oriented X3 Assessment and Plan (1) Acute cholecystitis Status: Acute Category: Medical Code(s): K81.0 - Acute cholecystitis (2) Urinary tract infection Status: Acute Qualifiers: Urinary tract infection type: site unspecified Hematuria presence: without hematuria Qualified Code(s): N39.0 - Urinary tract infection, site not specified Category: Medical Code(s): N39.0 - Urinary tract infection, site not specified (3) Hypokalemia Status: Acute Category: Medical Code(s): E87.6 - Hypokalemia (4) C. 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 (6) Mild cognitive impairment Status: Deleted Category: Medical Code(s): G31.84 - Mild cognitive impairment, so stated (7) Atrial fibrillation Status: Acute Qualifiers: Atrial fibrillation type: unspecified Qualified Code(s): I48.91 - Unspecified atrial fibrillation Category: Medical Code(s): I48.91 - Unspecified atrial fibrillation (8) History of cerebral aneurysm Status: Acute Category: Medical Code(s): Z86.79 - Personal history of other diseases of the circulatory system (9) Atrial fibrillation with rapid ventricular response Status: Acute Category: Medical Code(s): I48.91 - Unspecified atrial fibrillation (10) Rash Status: Acute Category: Medical Code(s): R21 - Rash and other nonspecific skin eruption - Assessment and plan all Dx Assessment and Plan for all problems:: It was thought the patient would be discharged to a detention facility yesterday, therefore her discharge summary was done. Insurance did not give approval and we are still awaiting approval this morning. She should be able to discharge today. <Gera Galvez - Last Filed: 05/30/22 09:08> Internal Medicine - PN: Subj *Date: 05/30/22 *Time: 09:07 Exam Vital signs and Labs for Last 24 Hours: Temp Pulse Resp BP Pulse Ox 98.0 F 88 20 130/64 95 05/30/22 04:00
[2022-05-30 10:00] VITALS: PULSE 102
[2022-05-30 11:03] LABS: Coronavirus 19, PCR Not Detected (NotDetected); Influenza A, PCR Not Detected (NotDetected); Influenza B, PCR Not Detected (NotDetected)
[2022-05-30 12:00] VITALS: BP 127/75; PULSE 86; PULSE 94; RESP 18; TEMP 36.6; O2SAT 98
--- NOTE | 2022-05-30 13:32 | PC.NURSE ---
Addendum entered by Margaux Ontiveros RN 05/30/22 14:55: faxed discharge summary to [phone] Original Note: called report to Mirlande at [facility] requested discharge summary faxed to [phone]
--- NOTE | 2022-05-30 13:55 | PC.NURSE ---
remaining alfredo removed with no bleeding or drainage noted and steri strips applied; patient tolerated well.
== END 2022-05-30 15:11 | DRG 415 ==
LOC: UTC 12:04 → ER 12:28 → 2ND 17:44
PROVIDERS: Surgery; Admitting Provider Family Medicine; Emergency Provider Emergency Medicine; PCP Family Medicine; Visit Provider Family Medicine
PROC: 0FT44ZZ Resection of Gallbladder, Percutaneous Endoscopic Approach (ICD-10-PCS; CPT 47562; principal; 2022-05-23 06:30)
DX: K81.2 Acute cholecystitis with chronic cholecystitis (principal); A04.72 Enterocolitis due to Clostridium difficile, not specified as recurrent; N39.0 Urinary tract infection, site not specified; A07.2 Cryptosporidiosis; F17.210 Nicotine dependence, cigarettes, uncomplicated; I10 Essential (primary) hypertension; F03.90 Unspecified dementia, unspecified severity, without behavioral disturbance, psychotic disturbance, mood disturbance, and anxiety; E87.6 Hypokalemia; I48.91 Unspecified atrial fibrillation; I67.1 Cerebral aneurysm, nonruptured
CPT/HCPCS: 47600; 36415; 74176; 76705; 80048; 80053; 81001; 82272; 83690; 85007; 85025; 87086; 87088; 87186; 87507; 88304; 88342; 93005; 97163; 97530; C9803; G0328; J0696; J2405; U0003; U0005

== ENCOUNTER → 2022-06-19 11:30 | Outpatient (CLI) | payer MEDICARE, SELFPAY ==
[2022-06-19 11:56] LABS: Basophils # 0.1 K/mm3 (0-0.2); Basophils % 0.7 % (0.1-2.0); Eosinophils # 0.2 K/mm3 (0.0-0.4); Eosinophils % 1.9 % (0.1-12.0); Hematocrit 41.2 % (37.0-47.0); Hemoglobin 13.3 g/dL (12.2-16.2); Lymphocytes # 1.6 K/mm3 (0.7-4.5); Lymphocytes % 15.6 % (10-50); Mean Corpuscular HGB Conc 32.1 g/dL (31.8-35.4); Mean Corpuscular Hemoglobin 33.8 pg (27.0-31.2); Mean Corpuscular Volume 105.1 fl (81-99); Mean Platelet Volume 9.8 fl (7.4-10.4); Monocytes # 0.7 K/mm3 (0.1-1.0); Monocytes % 6.5 % (1.7-9.3); Neutrophils # 7.7 K/mm3 (1.8-7.8); Neutrophils % 75.3 % (37.0-80.0); Platelet Count 154 K/mm3 (142-424); Red Blood Count 3.93 M/mm3 (4.20-5.40); Red Cell Distribution Width 14.6 % (11.5-17.5); White Blood Count 10.2 K/mm3 (4.8-10.8)
[2022-06-19 12:04] LABS: Alanine Aminotransferase 31 U/L (12-78); Albumin Level 3.4 g/dl (3.5-5.0); Albumin/Globulin Ratio 0.9 (1.1-1.8); Alkaline Phosphatase 164 U/L (38-126); Amylase 44 U/L (30-110); Anion Gap 7.8 mEq/L (5-15); Aspartate Amino Transferase 54 U/L (14-36); Bilirubin,Total 0.7 mg/dl (0.2-1.3); Blood Urea Nitrogen 16 mg/dl (7-17); Calcium 8.7 mg/dl (8.4-10.2); Carbon Dioxide 31 mmol/L (22.0-30.0); Chloride 99 mmol/L (98-107); Estimated Glomerular Filt Rate 54 ml/min (>60); GFR (African American) 65 ML/MIN (>60); Globulin 3.7 g/dL (1.3-3.2); Glucose 115 mg/dl (74-100); Lipase 18 U/L (23-300); Potassium 3.8 mmoL/L (3.5-5.1); Sodium 134 mmol/L (136-145); Total Protein,Serum 7.1 g/dl (6.3-8.2)
--- NOTE | 2022-06-19 12:32 | CT_ITS ---
FINAL REPORT CLINICAL HISTORY: abd pain, hasnt ate in 3 days COMPARISON: May 19, 2022 FINDINGS: Axial CT images of the abdomen and pelvis were obtained without intravenous contrast. Coronal reformatted images were also obtained.This study was performed with techniques to keep radiation doses as low as reasonably achievable (ALARA). Individualized dose reduction techniques using automated exposure control or adjustment of mA and/or kV according to the patient's size were employed. Abdomen: There is bibasilar atelectasis or scarring. There is no evidence of renal stone or hydronephrosis. There is been interval cholecystectomy. The liver, spleen and pancreas have an unremarkable, unenhanced appearance. No mass or adenopathy is seen. No inflammatory process is identified. There is a small periumbilical hernia containing fat. Pelvis: The appendix is normal. Images of the pelvis reveal no evidence of ureteral dilation or ureteral stone.No mass or abnormal fluid collection is identified. There is a presumed ingested pill in the region of the cecum. There is a moderate amount of stool within the rectum. IMPRESSION: No acute intra-abdominal or intrapelvic abnormality. Interval cholecystectomy. Reviewed, Interpreted and Dictated by Bryan Anaya III, MD Transcribed by Rocio Morillo Authenticated and [facility]
== END ==
PROVIDERS: PCP Family Medicine; Visit Provider Surgery
DX: R10.9 Unspecified abdominal pain (principal); R53.1 Weakness
CPT/HCPCS: 36415; 74176; 80053; 82150; 83690; 85025

== ENCOUNTER → 2022-07-21 13:04 | Outpatient (CLI) | payer MEDICARE, SELFPAY ==
--- NOTE | 2022-07-21 13:05 | US_ITS ---
FINAL REPORT CLINICAL HISTORY: claudication, Hx- brain aneurysm with ataxia FINDINGS: ANKLE-BRACHIAL PRESSURE INDICES Pressure indices are as follows: RIGHT LOWER EXTREMITY: Ankle-brachial pressure index: 1.17 Comments: Normal LEFT LOWER EXTREMITY: Ankle-brachial pressure index: 1.12 Comments: Normal IMPRESSION: No evidence of significant obstructive peripheral vascular disease of the lower extremities Reviewed, Interpreted and Dictated by Bryan Anaya III, MD Transcribed by Magda Rivera Authenticated and [facility]
== END ==
PROVIDERS: PCP Family Medicine; Visit Provider Nurse Practitioner Family
DX: I70.213 Atherosclerosis of native arteries of extremities with intermittent claudication, bilateral legs (principal); L81.8 Other specified disorders of pigmentation
CPT/HCPCS: 93923

== ENCOUNTER → 2022-08-13 14:13 | Outpatient (CLI) | payer MEDICARE, SELFPAY ==
[2022-08-13 16:53] LABS: Chloride 96 mmol/L (98-107); Potassium 3.4 mmoL/L (3.5-5.1); Sodium 142 mmol/L (136-145)
[2022-08-13 16:55] LABS: Blood Urea Nitrogen 10 mg/dl (7-17); Estimated Glomerular Filt Rate 70 ml/min (>60); GFR (African American) 84 ML/MIN (>60)
[2022-08-13 16:56] LABS: Anion Gap 14.4 mEq/L (5-15); Calcium 9.1 mg/dl (8.4-10.2); Carbon Dioxide 35 mmol/L (22.0-30.0); Glucose 114 mg/dl (74-100)
== END ==
PROVIDERS: PCP Family Medicine; Visit Provider Nurse Practitioner Family
DX: I48.91 Unspecified atrial fibrillation (principal); L81.9 Disorder of pigmentation, unspecified; R60.9 Edema, unspecified; R94.31 Abnormal electrocardiogram [ECG] [EKG]; Z86.79 Personal history of other diseases of the circulatory system
CPT/HCPCS: 36415; 80048

== ENCOUNTER 2022-08-25 11:08 | Emergency (ER) | payer MEDICARE, SELFPAY ==
[2022-08-25 11:09] VITALS: BP 134/80; PULSE 100; RESP 18; TEMP 36.7; O2SAT 96; BMI 20.9
--- NOTE | 2022-08-25 11:23 | XR_ITS ---
FINAL REPORT CLINICAL HISTORY: [facility] COMPARISON: 03/2022 FINDINGS: The heart size is normal. The mediastinum is within normal limits. There is mild left base atelectasis or scarring. There is no pleural effusion. There is no pneumothorax. The bony thorax is intact. IMPRESSION: Mild left base atelectasis or scarring. Reviewed, Interpreted and Dictated by Bryan Anaya III, MD Transcribed by Lincoln Gtz Authenticated and [facility]
--- NOTE | 2022-08-25 11:23 | CT_ITS ---
FINAL REPORT CLINICAL HISTORY: [facility] COMPARISON: March 25, 2022 FINDINGS: Axial images of the head were obtained without contrast. Coronal reformatted images were also obtained.This study was performed with techniques to keep radiation doses as low as reasonably achievable (ALARA). Individualized dose reduction techniques using automated exposure control or adjustment of mA and/or kV according to the patient's size were employed. There is stable bilateral frontal encephalomalacia. There is moderate to severe chronic ischemic change, stable. There is no evidence of intracranial hemorrhage or mass. The ventricular size is within normal limits. There is no evidence of shift of the midline structures. No abnormal extra axial fluid collection is identified. There are postoperative changes from front left temporal craniotomy and aneurysm clipping. IMPRESSION: Postoperative changes. Stable bilateral frontal encephalomalacia. Moderate chronic ischemic change, stable. No acute intracranial abnormality. Reviewed, Interpreted and Dictated by Bryan Anaya III, MD Transcribed by oRcio Morillo Authenticated and [facility]
--- NOTE | 2022-08-25 11:26 | HMH.EDGENADL ---
Discharge Plan Disposition Patient Disposition: Home, Self-Care Condition: Fair Prescriptions Prescriptions: New cefdinir 300 mg capsule 300 mg PO BID 5 Days Qty: 10 0RF No Action metoprolol tartrate 50 mg tablet 50 mg PO BID Qty: 60 5RF furosemide 20 mg tablet 40 mg PO DAILY Qty: 60 5RF potassium chloride 10 mEq tablet,ER particles/crystals 20 meq PO DAILY rivaroxaban 10 MG tablet 20 mg PO QPMWITHMEAL Rx Instructions: daily with meals digoxin 125 mcg (0.125 mg) tablet 125 mcg PO DAILY PRN (Reason: High blood pressure) Referrals Follow up/Referrals: Saud Brown [Primary Care Provider] - See instructions Clinical Impressions Clinical Impression: Acute UTI Instructions Patient Instructions: DI for Urinary Tract Infection (UTI), DI for Altered Mental Status Discharge ED Provider: Koko Galicia General Adult HPI General Chief complaint: Altered Mental Status Stated complaint: AMS Time Seen by Provider: 08/25/22 11:20 History of Present Illness HPI narrative: Patient is a 77-year-old female who presents with concern for altered mental status. She has a past medical history of recent acute cholecystitis, atrial fibrillation, cerebral aneurysm, urinary tract infection. He states that for the last 2 to 3 days the patient has become progressively more altered. He says that this is different than her normal baseline. He says she does not do much during the day other than sit in her chair. She has been diagnosed with two urinary tract infections this year that have presented in similar ways. She denies any fever or chills. Denies any chest or abdominal pain. Denies any shortness of breath. No sputum production. Denies any dysuria or frequency. Related Data Home Medications Medication Instructions Recorded Confirmed rivaroxaban 10 mg tablet 20 mg PO QPMWITHMEAL Blood thinner 05/19/22 08/13/22 digoxin 125 mcg (0.125 mg) tablet 125 mcg PO DAILY PRN High blood 08/13/22 08/13/22 pressure potassium chloride 10 mEq 20 meq PO DAILY Supplement 08/14/22 tablet,extended release(part/cryst) Previous Rx's Medication Instructions Recorded furosemide 20 mg tablet 40 mg PO DAILY Edema #60 tabs 07/16/22 metoprolol tartrate 50 mg tablet 50 mg PO BID Hypertension #60 tabs 08/13/22 cefdinir 300 mg capsule 300 mg PO BID 5 days #10 caps 08/25/22 Allergies Allergy/AdvReac Type Severity Reaction Status Date / Time warfarin [From Coumadin] Allergy Verified 08/13/22 13:42 [facility] Medical History Abnormal electrocardiography Atrial fibrillation Social History Smoking Status: Current every day smoker tobacco type: cigarettes packs per day: 2 alcohol intake: never substance use type: denies use current occupational status: retired Travel in the last 8 weeks: None household members: spouse housing: house ROS Obtained: Yes unobtainable due to mental status Physical Exam General General appearance: alert and in no apparent distress Head Head exam: atraumatic, normocephalic and normal inspection Eye Eye exam: Present normal appearance, PERRL and EOMI ENT ENT exam: Present normal exam, normal oropharynx, mucous membranes moist, TM's normal bilaterally and normal external ear exam Neck Neck exam: Present normal inspection, full ROM and trachea midline; Absent meningismus or lymphadenopathy Chest Chest inspection: Present normal inspection and symmetric chest wall rise; Absent tenderness Respiratory Respiratory exam: Present normal lung sounds bilaterally; Absent respiratory distress Cardiovascular Cardiovascular exam: Present regular rate and normal rhythm; Absent JVD Abdominal Exam Abdominal exam: Present soft and normal bowel sounds; Absent distention, tenderness or guarding Extremities Exam Extremities exam: Present normal inspection,
--- NOTE | 2022-08-25 11:28 | PC.NURSE ---
notified RT of vbg order
[2022-08-25 11:33] LABS: Basophils # 0.2 K/mm3 (0-0.2); Eosinophils # 0.2 K/mm3 (0.0-0.4); Eosinophils % 2.7 % (0.1-12.0); Hematocrit 48.7 % (37.0-47.0); Hemoglobin 16.7 g/dL (12.2-16.2); Lymphocytes # 1.8 K/mm3 (0.7-4.5); Lymphocytes % 24.2 % (10-50); Mean Corpuscular HGB Conc 34.3 g/dL (31.8-35.4); Mean Corpuscular Hemoglobin 31.9 pg (27.0-31.2); Mean Corpuscular Volume 93.1 fl (81-99); Mean Platelet Volume 9.8 fl (7.4-10.4); Monocytes # 0.3 K/mm3 (0.1-1.0); Monocytes % 4.6 % (1.7-9.3); Neutrophils # 4.9 K/mm3 (1.8-7.8); Neutrophils % 66.5 % (37.0-80.0); Platelet Count 217 K/mm3 (142-424); Red Blood Count 5.23 M/mm3 (4.20-5.40); Red Cell Distribution Width 14.1 % (11.5-17.5); White Blood Count 7.4 K/mm3 (4.8-10.8)
[2022-08-25 11:35] LABS: VBG Base Excess 3.2 mmol/L (-2.4-2.3); VBG HCO3 27.7 mmol/L (23-30); VBG Oxygen Saturation 87.7 % (50-70); VBG PCO2 43.7 mmol/L (35-51); VBG PH 7.42 mmol/L (7.31-7.41); VBG PO2 52.7 mmol/L (28-40); VBG Total CO2 29.1 mmol/L (23-27)
[2022-08-25 11:48] LABS: Chloride 100 mmol/L (98-107); Potassium 3.2 mmoL/L (3.5-5.1); Sodium 141 mmol/L (136-145)
--- NOTE | 2022-08-25 11:48 | PC.NURSE ---
only able to obtains a few drops of urine with in/out cath, specimen was sent to the lab. Lab staff called at this time states unable to run urine r/t not enough of a specimen
--- NOTE | 2022-08-25 11:49 | PC.NURSE ---
XR AT BEDSIDE
[2022-08-25 11:51] LABS: Alanine Aminotransferase 17 U/L (12-78); Albumin Level 4.2 g/dl (3.5-5.0); Albumin/Globulin Ratio 1.2 (1.1-1.8); Alkaline Phosphatase 231 U/L (38-126); Anion Gap 12.2 mEq/L (5-15); Aspartate Amino Transferase 32 U/L (14-36); Bilirubin,Total 1.2 mg/dl (0.2-1.3); Blood Urea Nitrogen 12 mg/dl (7-17); Calcium 9.1 mg/dl (8.4-10.2); Carbon Dioxide 32 mmol/L (22.0-30.0); Creatinine Clearance Estimated 49 mL/min (50-200); Estimated Glomerular Filt Rate 61 ml/min (>60); GFR (African American) 74 ML/MIN (>60); Globulin 3.6 g/dL (1.3-3.2); Glucose 110 mg/dl (74-100); Lipase 60 U/L (23-300); Total Protein,Serum 7.8 g/dl (6.3-8.2)
[2022-08-25 11:56] LABS: C-Reactive Protein 17.7 mg/L (0-4)
--- NOTE | 2022-08-25 12:00 | PC.NURSE ---
PT TO CT AT THIS TIME
[2022-08-25 12:21] LABS: Procalcitonin 0.071 ng/mL (0.0-2.0)
[2022-08-25 12:30] VITALS: BP 136/84; PULSE 88; RESP 18; O2SAT 94
[2022-08-25 12:30] LABS: Lactic Acid 1.4 mmol/L (0.7-2.1)
[2022-08-25 13:00] VITALS: BP 149/96; PULSE 105; RESP 18; O2SAT 96
--- NOTE | 2022-08-25 13:05 | PC.NURSE ---
CATH UA COLLECTED AND SENT TO LAB AT THIS TIME
--- NOTE | 2022-08-25 13:08 | PC.NURSE ---
VERBAL ORDER FOR PT TO HAVE REGULAR DIET TRAY PER ED MD. DIETARY NOTIFIED
[2022-08-25 13:10] LABS: Microscopic, Urine URINE MICROSCOPIC (MICROSCOPIC)
[2022-08-25 13:12] LABS: Appearance,Urine CLEAR (Clear); Bilirubin,Urine Negative (Negative); Blood, Urine TRACE-I (Negative); Color,Urine YELLOW (Yellow); Glucose,Urine (UA) Negative (Negative); Ketones,Urine Negative (Negative); Leukocyte Esterase,Urine 1+ (Negative); Nitrate,Urine POSITIVE (Negative); PH,Urine 6.5 (5.0-8.5); Protein,Urine Negative (Negative); Urobilinogen,Urine 0.2 EU/dl (0.2)
[2022-08-25 13:26] LABS: Bacteria,Urine Trace /lpf; RBC,Urine Occasional #/hpf (0-3); Squamous Epithelial Cell,Urine Occasional #/hpf (0-5); WBC,Urine Occasional #/hpf (0-3)
--- NOTE | 2022-08-25 14:16 | PC.NURSE ---
stated pt does not need the 2nd bag of k+, order d/c on jan.
[2022-08-25 14:42] VITALS: BP 126/83; PULSE 94; RESP 17; TEMP 36.7; O2SAT 100
== END 2022-08-25 14:45 | disposition home or self-care (01) ==
PROVIDERS: Emergency Provider Student in an Organized Health Care Education/Training Program; PCP Family Medicine
DX: N39.0 Urinary tract infection, site not specified (principal); Z79.899 Other long term (current) drug therapy; Z88.8 Allergy status to other drugs, medicaments and biological substances; Z72.0 Tobacco use; I48.91 Unspecified atrial fibrillation; Z87.440 Personal history of urinary (tract) infections; Z86.79 Personal history of other diseases of the circulatory system
CPT/HCPCS: 70450; 71045; 80053; 81001; 82803; 83605; 83690; 84145; 85025; 86140; 87086; 87088; 87186; 96365; 99284; J0696

== ENCOUNTER 2022-10-28 17:16 | Observation (INO) | payer MEDICARE, SELFPAY ==
[2022-10-28 17:30] VITALS: BP 138/87; PULSE 103; RESP 20; TEMP 36.8; O2SAT 99; BMI 20.2
--- NOTE | 2022-10-28 17:47 | HMH.EDGENADL ---
Discharge Plan Disposition Patient Disposition: Admitted As Inpatient Condition: Good Prescriptions Prescriptions: No Action metoprolol tartrate 50 mg tablet 50 mg PO BID Qty: 60 5RF furosemide 20 mg tablet 40 mg PO DAILY Qty: 60 5RF potassium chloride 10 mEq tablet,ER particles/crystals 20 meq PO DAILY rivaroxaban 10 MG tablet 20 mg PO QPMWITHMEAL Rx Instructions: daily with meals digoxin 125 mcg (0.125 mg) tablet 125 mcg PO DAILY PRN (Reason: High blood pressure) Referrals Follow up/Referrals: Saud Brown [Primary Care Provider] - See instructions Clinical Impressions Clinical Impression: Atrial fibrillation with rapid ventricular response, Acute GI bleeding Instructions Patient Instructions: DI for Urinary Tract Infection (UTI), DI for Urinary Tract Infection in Children Discharge ED Provider: Amy Barrow General Adult HPI General Chief complaint: Urogenital-Female Stated complaint: bleeding in stool Time Seen by Provider: 10/28/22 17:26 Mode of Arrival: Wheelchair Source of Information: Patient Limitations: No Limitations Description of Symptoms (Recalled from ER Triage Doc. by RN): pt to ed c/o blood in stool since thursday. at the bedside states she does take blood thinners. pt denies abd pain. History of Present Illness HPI narrative: This patient is a 77-year-old female with a history of atrial fibrillation on rivaroxaban, aspirin, digoxin, and metoprolol, presenting to the emergency department for evaluation of dark tarry stools. This started on Thursday, and she has had multiple episodes each day. She has not complained of any pain, nausea, vomiting, or any other issues. Nothing seems to change her symptoms at all. She is still eating and drinking okay. Her brought her in for evaluation with a sample of her stool. She is incontinent at baseline and wears briefs. Of note, her has been holding her rate control medications, however he is still been giving her her rivaroxaban. Related Data Home Medications Medication Instructions Recorded Confirmed rivaroxaban 10 mg tablet 20 mg PO QPMWITHMEAL Blood thinner 05/19/22 10/28/22 digoxin 125 mcg (0.125 mg) tablet 125 mcg PO DAILY PRN High blood 08/13/22 10/28/22 pressure potassium chloride 10 mEq 20 meq PO DAILY Supplement 08/14/22 10/28/22 tablet,extended release(part/cryst) Previous Rx's Medication Instructions Recorded furosemide 20 mg tablet 40 mg PO DAILY Edema #60 tabs 07/16/22 metoprolol tartrate 50 mg tablet 50 mg PO BID Hypertension #60 tabs 08/13/22 Allergies Allergy/AdvReac Type Severity Reaction Status Date / Time warfarin [From Coumadin] Allergy Verified 09/17/22 13:47 [facility] Disclaimer: The information contained in this section may have been updated after the patient was seen, as this information can be updated by other users. Medical History Abnormal electrocardiography Atrial fibrillation Social History Smoking Status: Never smoker alcohol intake: never substance use type: denies use current occupational status: retired Travel in the last 8 weeks: None household members: spouse housing: house ROS Obtained: Yes All systems reviewed & no additional complaints except as documented 14 point review systems obtained and negative except as mentioned in HPI. Physical Exam General General appearance: alert and in no apparent distress Head Head exam: atraumatic and normocephalic Eye Eye exam: Present normal appearance, PERRL and EOMI ENT ENT exam: Present normal exam Neck Neck exam: Present normal inspection and full ROM Chest Chest inspection: Present normal inspection and symmetric chest wall rise Respiratory Respiratory exam: Present normal lung sounds bilaterally; Absent respiratory distress Cardiovascular Cardiovasc
--- NOTE | 2022-10-28 18:25 | ECG_ITS ---
APPROVED REPORT Exam: Resting ECG HR:140 bpm ECG Measurements Heart Rate 140 AXES QRSd 88 QRS -19 QT 305 T 269 QTc 386 Conclusion ATRIAL FIBRILLATION WITH RAPID VENTRICULAR RESPONSE POSSIBLE RIGHT VENTRICULAR CONDUCTION DELAY [RSR (QR) IN V1/V2] SEPTAL MYOCARDIAL INFARCTION , PROBABLY OLD [40+ ms Q WAVE IN V1/V2] ABNORMAL ECG UNCONFIRMED REPORT Electronically signed by : Marcial Alfonso MD 10/30/2022 20:23:52
[2022-10-28 18:46] LABS: Basophils # 0.1 K/mm3 (0-0.2); Basophils % 1.2 % (0.1-2.0); Eosinophils # 0.1 K/mm3 (0.0-0.4); Eosinophils % 2.4 % (0.1-12.0); Hematocrit 35.8 % (37.0-47.0); Hemoglobin 12.1 g/dL (12.2-16.2); Lymphocytes # 1.9 K/mm3 (0.7-4.5); Lymphocytes % 36.2 % (10-50); Mean Corpuscular HGB Conc 33.9 g/dL (31.8-35.4); Mean Corpuscular Hemoglobin 32.5 pg (27.0-31.2); Mean Corpuscular Volume 95.8 fl (81-99); Mean Platelet Volume 9.6 fl (7.4-10.4); Monocytes # 0.2 K/mm3 (0.1-1.0); Monocytes % 4.3 % (1.7-9.3); Neutrophils # 2.9 K/mm3 (1.8-7.8); Platelet Count 198 K/mm3 (142-424); Red Blood Count 3.74 M/mm3 (4.20-5.40); Red Cell Distribution Width 15.5 % (11.5-17.5); White Blood Count 5.2 K/mm3 (4.8-10.8)
[2022-10-28 18:55] LABS: Chloride 106 mmol/L (98-107); Potassium 3.8 mmoL/L (3.5-5.1); Sodium 142 mmol/L (136-145)
[2022-10-28 18:58] LABS: Alanine Aminotransferase 22 U/L (12-78); Albumin/Globulin Ratio 1.4 (1.1-1.8); Alkaline Phosphatase 118 U/L (38-126); Anion Gap 10.8 mEq/L (5-15); Aspartate Amino Transferase 31 U/L (14-36); Bilirubin,Total 0.7 mg/dl (0.2-1.3); Blood Urea Nitrogen 18 mg/dl (7-17); Calcium 9.4 mg/dl (8.4-10.2); Carbon Dioxide 29 mmol/L (22.0-30.0); Creatinine Clearance Estimated 47 mL/min (50-200); Estimated Glomerular Filt Rate 54 ml/min (>60); GFR (African American) 65 ML/MIN (>60); Globulin 2.8 g/dL (1.3-3.2); Glucose 111 mg/dl (74-100); Lipase 60 U/L (23-300); Magnesium 2.1 mg/dl (1.6-2.3); Total Protein,Serum 6.8 g/dl (6.3-8.2)
[2022-10-28 19:01] VITALS: BP 92/66; PULSE 144; RESP 19; O2SAT 98
[2022-10-28 19:05] LABS: Lactic Acid 2.2 mmol/L (0.7-2.1)
[2022-10-28 19:06] LABS: Occult Blood,Stool Positive (Negative)
[2022-10-28 19:07] LABS: INR 1.03 (0.9-1.1); Prothrombin Time 10.9 seconds (9.2-12.1)
[2022-10-28 19:09] LABS: Activated Partial Thrombo Time 18.3 seconds (22.5-28.5)
[2022-10-28 19:11] LABS: Troponin I < 0.01 ng/ml (0.00-0.034)
--- NOTE | 2022-10-28 19:17 | PC.NURSE ---
Dr. Leiva paged
--- NOTE | 2022-10-28 19:17 | PC.NURSE ---
Dr. Barrow speaking with Dr. Leiva
--- NOTE | 2022-10-28 19:21 | PC.NURSE ---
Dr. Barrow at BS updating pt/family on POC
[2022-10-28 19:23] LABS: Coronavirus 19, PCR Not Detected (NotDetected); Influenza A, PCR Not Detected (NotDetected); Influenza B, PCR Not Detected (NotDetected)
[2022-10-28 19:30] VITALS: BP 112/83; PULSE 129; RESP 17; O2SAT 98
[2022-10-28 20:00] VITALS: BP 126/89; PULSE 106; RESP 22; O2SAT 92
--- NOTE | 2022-10-28 20:00 | EXP.HP ---
History of Present Illness *Admission Date: 10/28/22 *Reason for visit:: Melena *History of present illness: This is a 77-year-old female with past medical history of atrial fibrillation on Eliquis, history of cerebral aneurysm, hypertension who presents emergency department with her for complaints of melena. Patient does have baseline cognitive delay secondary to cerebral aneurysm and is taking care of by home health and has been inside of the home. states that on Thursday she developed dark tarry stool and has not had an issue with this previously. He also endorses some mild hypotension at home. He reports that he has been holding her metoprolol and digoxin secondary to blood pressures being in the 90s and low 100s. He endorses heart rate in the low 100s which is her baseline. He does state that he has been continuing to give her Eliquis and decided to bring her to the emergency department when he noticed a dark tarry stool. Patient does have a mild altered mental status but has no overt complaints. at bedside does not report any noted fever, any complaints of pain or any episodes of passing out. Laboratory evaluation emergency department positive for Hemoccult stool. Hemoglobin hematocrit stable but downtrending from August. Patient did have mild A. fib with RVR with rates in the low 100s. She was given a dose of metoprolol p.o. Surgery was consulted and recommends hospitalization and likely scope at some point during hospitalization. She is currently admitted to the hospital service. [facility] Disclaimer: The information contained in this section may have been updated after the patient was seen, as this information can be updated by other users. Medical History Abnormal electrocardiography Atrial fibrillation Social History Smoking Status: Never smoker alcohol intake: never substance use type: denies use current occupational status: retired Travel in the last 8 weeks: None household members: spouse housing: house Review of Systems Constitutional Constitutional: Reports system reviewed and no additional complaints, except as documented Eyes Eyes: Reports system reviewed and no additional complaints, except as documented ENT Ears, Nose, Mouth, and Throat: Reports system reviewed and no additional complaints, except as documented *Cardiovascular Cardiovascular: Reports system reviewed and no additional complaints, except as documented *Respiratory Respiratory: Reports system reviewed and no additional complaints, except as documented *Gastrointestinal Gastrointestinal: Reports system reviewed and no additional complaints, except as documented *Genitourinary Genitourinary: Reports system reviewed and no additional complaints, except as documented *Musculoskeletal Musculoskeletal: Reports system reviewed and no additional complaints, except as documented Integumentary/Breasts Skin/Breast: Reports system reviewed and no additional complaints, except as documented *Neurologic Neurologic: Reports system reviewed and no additional complaints, except as documented Meds Home Medications and Allergies Home Medications Medication Instructions Recorded Confirmed Type rivaroxaban 10 mg tablet 20 mg PO QPMWITHMEAL Blood thinner 05/19/22 10/28/22 History furosemide 20 mg tablet 40 mg PO DAILY Edema #60 tabs 07/16/22 10/28/22 Rx digoxin 125 mcg (0.125 mg) tablet 125 mcg PO DAILY PRN High blood 08/13/22 10/28/22 History pressure metoprolol tartrate 50 mg tablet 50 mg PO BID Hypertension #60 tabs 08/13/22 10/28/22 Rx potassium chloride 10 mEq 20 meq PO DAILY Supplement 08/14/22 10/28/22 History tablet,extended release(part/cryst) New Prescriptions to Start Prescriptions: Allergies Allergy/AdvReac Type Severity Reaction Status Date / Time warfarin [From Coumadin] Allergy
--- NOTE | 2022-10-28 20:05 | PC.NURSE ---
asked if pt could have anything to eat. informed that hospitalist has an NPO order in at this time.
--- NOTE | 2022-10-28 20:38 | PC.NURSE ---
Attempted to obtain urine sample via bedpan. Pt was unable to go at this time. advised, She is unable to tell you when she needs to use the bathroom. RN notified.
--- NOTE | 2022-10-28 20:54 | PC.NURSE ---
Pt moved from stretcher to hospital bed for comfort and placed in room with a door. Pt brief changed at this time and second trop drawn and sent to lab. Pt educated on using call button if she needs help with anything. No needs or complaints voiced at this time.
[2022-10-28 21:00] VITALS: BP 111/77; PULSE 114; RESP 18; O2SAT 100
[2022-10-28 21:41] LABS: Troponin I < 0.01 ng/ml (0.00-0.034)
[2022-10-28 22:00] VITALS: BP 116/80; PULSE 100; RESP 20; O2SAT 99
[2022-10-28 23:06] LABS: Reflex Lactic Add Lactic Reflex
--- NOTE | 2022-10-28 23:17 | PC.NURSE ---
Pt brief changed. Pt changed and repositioned with use of pillow. No needs voiced at this time. Call light within reach.
[2022-10-29] VITALS (26 sets, daily range): BP systolic 92–145; BP diastolic 57–84; PULSE 85–111; RESP 16–20; TEMP 36.1–36.9; O2SAT 92–99; BMI 20.2
--- NOTE | 2022-10-29 00:13 | PC.NURSE ---
obtain pt midnight labs and checked pt brief was dry. pt didnt want to be repositioned at this time.
[2022-10-29 00:21] LABS: Troponin I < 0.01 ng/ml (0.00-0.034)
[2022-10-29 00:22] LABS: Basophils % 0.8 % (0.1-2.0); Eosinophils # 0.1 K/mm3 (0.0-0.4); Eosinophils % 3.2 % (0.1-12.0); Hematocrit 27.5 % (37.0-47.0); Lymphocytes # 1.4 K/mm3 (0.7-4.5); Lymphocytes % 47.8 % (10-50); Mean Corpuscular HGB Conc 34.3 g/dL (31.8-35.4); Mean Corpuscular Volume 96.3 fl (81-99); Mean Platelet Volume 9.5 fl (7.4-10.4); Monocytes # 0.2 K/mm3 (0.1-1.0); Monocytes % 5.9 % (1.7-9.3); Neutrophils # 1.3 K/mm3 (1.8-7.8); Neutrophils % 42.4 % (37.0-80.0); Platelet Count 131 K/mm3 (142-424); Red Blood Count 2.86 M/mm3 (4.20-5.40); Red Cell Distribution Width 15.6 % (11.5-17.5)
[2022-10-29 00:33] LABS: Hemoglobin 9.4 g/dL (12.2-16.2)
--- NOTE | 2022-10-29 01:14 | PC.NURSE ---
pt iv was alarming entered room pt had pulled iv out. pt was changes and new iv place at this time
--- NOTE | 2022-10-29 01:46 | PC.NURSE ---
rounded on pt. currently in bed fidgeting with hands. Notified hospitalist for medication to help pt relax
--- NOTE | 2022-10-29 03:29 | PC.NURSE ---
Rounded on pt. Pt sleeping at this time. Call light within reach.
--- NOTE | 2022-10-29 04:33 | PC.NURSE ---
Rounded on pt. Brief dry at this time. AM labs obtained per Dayana Denise.
[2022-10-29 04:49] LABS: Basophils # 0.1 K/mm3 (0-0.2); Basophils % 1.2 % (0.1-2.0); Eosinophils # 0.1 K/mm3 (0.0-0.4); Eosinophils % 2.4 % (0.1-12.0); Hematocrit 28.3 % (37.0-47.0); Hemoglobin 9.7 g/dL (12.2-16.2); Lymphocytes # 1.6 K/mm3 (0.7-4.5); Mean Corpuscular HGB Conc 34.2 g/dL (31.8-35.4); Mean Corpuscular Hemoglobin 33.1 pg (27.0-31.2); Mean Corpuscular Volume 96.8 fl (81-99); Mean Platelet Volume 10.1 fl (7.4-10.4); Monocytes # 0.2 K/mm3 (0.1-1.0); Monocytes % 5.2 % (1.7-9.3); Neutrophils % 50.1 % (37.0-80.0); Platelet Count 139 K/mm3 (142-424); Red Blood Count 2.92 M/mm3 (4.20-5.40); Red Cell Distribution Width 15.5 % (11.5-17.5); White Blood Count 3.9 K/mm3 (4.8-10.8)
[2022-10-29 05:01] LABS: Chloride 111 mmol/L (98-107)
[2022-10-29 05:02] LABS: Sodium 142 mmol/L (136-145)
[2022-10-29 05:04] LABS: Blood Urea Nitrogen 15 mg/dl (7-17); Creatinine Clearance Estimated 47 mL/min (50-200); Estimated Glomerular Filt Rate 61 ml/min (>60); GFR (African American) 74 ML/MIN (>60)
[2022-10-29 05:05] LABS: Calcium 8.9 mg/dl (8.4-10.2); Carbon Dioxide 29 mmol/L (22.0-30.0); Glucose 96 mg/dl (74-100)
--- NOTE | 2022-10-29 06:08 | PC.NURSE ---
Rounded on pt. Brief changed at this time. Pt very combative.
--- NOTE | 2022-10-29 07:10 | EXP.SURG.CON ---
History of Present Illness *Admission Date: 10/28/22 *Reason for visit:: Gastrointestinal hemorrhage; A. fib with rapid ventricular response *History of present illness: This is a 77-year-old female seen in consultation from the Emergency Department and Hospitalist Service for possible endoscopic evaluation of gastrointestinal hemorrhage. Please see HPI from admission H&P forwarded below. Forwarded from admission H&P: This is a 77-year-old female with past medical history of atrial fibrillation on Eliquis, history of cerebral aneurysm, hypertension who presents emergency department with her for complaints of melena. Patient does have baseline cognitive delay secondary to cerebral aneurysm and is taking care of by home health and has been inside of the home. states that on Thursday she developed dark tarry stool and has not had an issue with this previously. He also endorses some mild hypotension at home. He reports that he has been holding her metoprolol and digoxin secondary to blood pressures being in the 90s and low 100s. He endorses heart rate in the low 100s which is her baseline. He does state that he has been continuing to give her Eliquis and decided to bring her to the emergency department when he noticed a dark tarry stool. Patient does have a mild altered mental status but has no overt complaints. at bedside does not report any noted fever, any complaints of pain or any episodes of passing out. Laboratory evaluation emergency department positive for Hemoccult stool. Hemoglobin hematocrit stable but downtrending from August. Patient did have mild A. fib with RVR with rates in the low 100s. She was given a dose of metoprolol p.o. Surgery was consulted and recommends hospitalization and likely scope at some point during hospitalization. She is currently admitted to the hospital service. [facility] Disclaimer: The information contained in this section may have been updated after the patient was seen, as this information can be updated by other users. Medical History Abnormal electrocardiography Atrial fibrillation Social History Smoking Status: Never smoker alcohol intake: never substance use type: denies use current occupational status: retired Travel in the last 8 weeks: None household members: spouse housing: house Review of Systems *Neurologic Neurologic: Reports system reviewed and no additional complaints, except as documented Meds Home Medications and Allergies Home Medications Medication Instructions Recorded Confirmed Type rivaroxaban 10 mg tablet 20 mg PO QPMWITHMEAL Blood thinner 05/19/22 10/28/22 History furosemide 20 mg tablet 40 mg PO DAILY Edema #60 tabs 07/16/22 10/28/22 Rx digoxin 125 mcg (0.125 mg) tablet 125 mcg PO DAILY PRN High blood 08/13/22 10/28/22 History pressure metoprolol tartrate 50 mg tablet 50 mg PO BID Hypertension #60 tabs 08/13/22 10/28/22 Rx potassium chloride 10 mEq 20 meq PO DAILY Supplement 08/14/22 10/28/22 History tablet,extended release(part/cryst) New Prescriptions to Start Prescriptions: Allergies Allergy/AdvReac Type Severity Reaction Status Date / Time warfarin [From Coumadin] Allergy Verified 09/17/22 13:47 Exam (Inpt) Vital signs and Labs for Last 24 Hours: Temp Pulse Resp BP Pulse Ox 98.2 F 111 H 20 123/57 L 97 10/28/22 17:30 10/29/22 06:00 10/29/22 06:00 10/29/22 06:00 10/29/22 06:00 Laboratory Results - last 24 hr 10/28/22 18:25: Stool Occult Blood Positive A 10/28/22 18:25: WBC 5.2, RBC 3.74 L, Hgb 12.1 L, Hct 35.8 L, MCV 95.8, MCH 32.5 H, MCHC 33.9, RDW 15.5, Plt Count 198, MPV 9.6, Neut % (Auto) 56.0, Lymph % (Auto) 36.2, [place] % (Auto) 4.3, Eos % (Auto) 2.4, Baso % (A
--- NOTE | 2022-10-29 07:38 | PC.NURSE ---
PT RESTING IN BED AT THIS TIME. BED IN LOWEST POSITION. CALL LIGHT WITHIN REACH.
--- NOTE | 2022-10-29 09:07 | PC.NURSE ---
Just checked on patient, she is sleeping
--- NOTE | 2022-10-29 10:03 | PC.NURSE ---
PT RESTING IN BED AT THIS TIME. CALL LIGHT WITHIN REACH. BED IN LOWEST POSITION. NS INFUSING AT 100ML/HR, PROTONIX DRIP GOING 10ML/HR.
--- NOTE | 2022-10-29 10:28 | PC.NURSE ---
CHANGED PATIENT'S BRIEF. PT TOLERATED WELL. PROVIDED PT WITH DRINK OF WATER TO TAKE MEDICATION. SITTING UP IN BED. CALL LIGHT WITHIN REACH. BED IN LOWEST POSITION.
--- NOTE | 2022-10-29 10:35 | PC.NURSE ---
PT/OT AT BEDSIDE.
--- NOTE | 2022-10-29 10:41 | PC.NURSE ---
CALLED REPORT TO CHLOE MANRIQUEZ.
--- NOTE | 2022-10-29 10:46 | PC.NURSE ---
UPDATED PT ON CARE. INFORMED HER SHE WOULD BE GOING TO A ROOM SOON.
--- NOTE | 2022-10-29 10:57 | PC.NURSE ---
PTOT left room after evaluation and I restarted IV meds.
--- NOTE | 2022-10-29 11:42 | HMH.OTEV ---
OT Inpatient Evaluation Rehab OT IP Evaluation Start: 10/29/22 10:15 Freq: ONCE Status: Active Protocol: Document 10/29/22 11:29 MARIELYHUMBLE (Rec: 10/29/22 11:42 [email or web address] [id number]) Rehab OT IP Assessment Subjective History This is a 77-year-old female with past medical history of atrial fibrillation on Eliquis , history of cerebral aneurysm , hypertension who presents emergency department with her for complaints of melena. Patient does have baseline cognitive delay secondary to cerebral aneurysm and is taking care of by home health and has been inside of the home. states that on Thursday she developed dark tarry stool and has not had an issue with this previously. He also endorses some mild hypotension at home. He reports that he has been holding her metoprolol and digoxin secondary to blood pressures being in the 90s and low 100s. He endorses heart rate in the low 100s which is her baseline. He does state that he has been continuing to give her Eliquis and decided to bring her to the emergency department when he noticed a dark tarry stool. Patient does have a mild altered mental status but has no overt complaints. at bedside does not report any noted fever, any complaints of pain or any episodes of passing out. Laboratory evaluation emergency department positive for Hemoccult stool. Hemoglobin hematocrit stable but downtrending from August. Patient did have mild A. fib with RVR with rates in the low 100s. She was given a dose of metoprolol p.o.
--- NOTE | 2022-10-29 11:47 | EXP.PN ---
Subjective *Date: 10/29/22 *Time: 11:47 Interval history: Due to medical for painful, patient boarded in the ER overnight. No acute events overnight. Patient reports she feels better this morning. Exam Data for Last 24 hours Vital signs and Labs for Last 24 Hours: Temp Pulse Resp BP Pulse Ox 98.1 F 85 18 121/60 99 10/29/22 11:07 10/29/22 11:07 10/29/22 11:07 10/29/22 11:07 10/29/22 10:30 Laboratory Results - last 24 hr 10/28/22 18:25: Stool Occult Blood Positive A 10/28/22 18:25: WBC 5.2, RBC 3.74 L, Hgb 12.1 L, Hct 35.8 L, MCV 95.8, MCH 32.5 H, MCHC 33.9, RDW 15.5, Plt Count 198, MPV 9.6, Neut % (Auto) 56.0, Lymph % (Auto) 36.2, [place] % (Auto) 4.3, Eos % (Auto) 2.4, Baso % (Auto) 1.2, Neut # (Auto) 2.9, Lymph # (Auto) 1.9, [place] # (Auto) 0.2, Eos # (Auto) 0.1, Baso # (Auto) 0.1 10/28/22 18:25: PT 10.9, INR 1.03, APTT 18.3 L 10/28/22 18:25: Sodium 142, Potassium 3.8, Chloride 106, Carbon Dioxide 29, Anion Gap 10.8, BUN 18 H, Creatinine 1.00, Estimated Creat Clear 47, Estimated GFR 54 L, Est GFR ( Amer) 65, Glucose 111 H, Calcium 9.4, Total Bilirubin 0.7, AST 31, ALT 22, Alkaline Phosphatase 118, Troponin I < 0.01, Total Protein 6.8, Albumin 4.0, Globulin 2.8, Albumin/Globulin Ratio 1.4, Lipase 60 10/28/22 18:25: Lactate 2.2 H 10/28/22 18:25: Blood Type O Positive, Antibody Screen Negative 10/28/22 18:25: Magnesium 2.1 10/28/22 19:16: SARS-CoV-2 (PCR) Not detected, Influenza A Untype (PCR) Not detected, Influenza Type B (PCR) Not detected 10/28/22 20:53: Troponin I < 0.01 10/28/22 23:25: Troponin I < 0.01 10/28/22 23:25: Lactate 1.0 10/29/22 00:13: WBC 3.0 L D, RBC 2.86 L, Hgb 9.4 L D, Hct 27.5 L, MCV 96.3, MCH 33.0 H, MCHC 34.3, RDW 15.6, Plt Count 131 L D, MPV 9.5, Neut % (Auto) 42.4, Lymph % (Auto) 47.8, [place] % (Auto) 5.9, Eos % (Auto) 3.2, Baso % (Auto) 0.8, Neut # (Auto) 1.3 L, Lymph # (Auto) 1.4, Tripp # (Auto) 0.2, Eos # (Auto) 0.1, Baso # (Auto) 0.0 10/29/22 04:31: WBC 3.9 L D, RBC 2.92 L, Hgb 9.7 L, Hct 28.3 L, MCV 96.8, MCH 33.1 H, MCHC 34.2, RDW 15.5, Plt Count 139 L, MPV 10.1, Neut % (Auto) 50.1, Lymph % (Auto) 41.0, [place] % (Auto) 5.2, Eos % (Auto) 2.4, Baso % (Auto) 1.2, Neut # (Auto) 2.0, Lymph # (Auto) 1.6, Tripp # (Auto) 0.2, Eos # (Auto) 0.1, Baso # (Auto) 0.1 10/29/22 04:31: Sodium 142, Potassium 4.0, Chloride 111 H, Carbon Dioxide 29, Anion Gap 6.0, BUN 15, Creatinine 0.90, Estimated Creat Clear 47, Estimated GFR 61, Est GFR ( Amer) 74, Glucose 96, Calcium 8.9, Magnesium 2.0 I & O for Last 24 hours: Intake & Output 10/26/22 10/27/22 10/28/22 10/29/22 23:59 23:59 23:59 23:59 Weight 62.142 kg Constitutional Constitutional: no acute distress, average body habitus, thin, chronically ill appearing and cooperative Comments: Confused *Routine HEENT Exam Head: Present normocephalic and atraumatic Eye: Present EOMI and PERRL ENT: Present mucous membranes dry and oropharynx clear *Routine Neck Exam Neck: Present supple and full ROM *Routine Respiratory Exam Respiratory: Present wheezes (Occasional expiratory wheeze appreciated), normal respiratory effort and able to speak in complete sentences; Absent accessory muscle use, CTA bilaterally, respiratory distress, rhonchi or crackles *Routine Cardiovascular Exam Cardiovascular: Present Normal S1, Normal S2, murmur, tachycardia (Slightly) and irregularly irregular *Routine Abdominal Exam Abdominal: Present soft and normoactive bowel sounds; Absent tenderness, distended, rebound or guarding *Routine Extremities Exam Extremities: Present full ROM, pulses intact and normal capillary refill; Absent edema or tenderness *Routine Neurological Exam Neurological: Present alert, CN II-XII intact, altered mental status, moving all extremities, normal tone and normal speech; Absent oriented X3 (Oriented to name only), sensory deficit or motor deficit Routine Psychiatric Exam Psychiatric: Present normal affect and cooperative; Absent normal thought process, good insi
--- NOTE | 2022-10-29 11:53 | EXP.CARD.CON ---
History of Present Illness History of Present Illness Consult date: 10/29/22 Requesting physician: Cornell Melgar Consult reason: atrial fibrillation Chief complaint: GI bleed, A. fib with RVR Additional Medical History:: 1. Atrial fibrillation with CHADS-VASC score of 6 (age, sex, HTN, prior CVA) A. Anticoagulation with Eliquis therapy 2. GI bleed, 10/28/2022 3. Tobacco use 4. History of cerebral aneurysm rupture with repair 5. Hypertension A. Echocardiogram 03/2022, EF 55 to 65% with no regional WMA. Trace to mild valvular disease. RVSP 45 mmHg. History of present illness: This is a 77-year-old female with past medical history of atrial fibrillation on Eliquis, history of cerebral aneurysm, hypertension who presents emergency department with her for complaints of melena.? Patient does have baseline cognitive delay secondary to cerebral aneurysm and is taking care of by home health and has been inside of the home.? states that on Thursday she developed dark tarry stool and has not had an issue with this previously.? He also endorses some mild hypotension at home.? He reports that he has been holding her metoprolol and digoxin secondary to blood pressures being in the 90s and low 100s.? He endorses heart rate in the low 100s which is her baseline.? He does state that he has been continuing to give her Eliquis and decided to bring her to the emergency department when he noticed a dark tarry stool.? Patient does have a mild altered mental status but has no overt complaints.? at bedside does not report any noted fever, any complaints of pain or any episodes of passing out. Laboratory evaluation emergency department positive for Hemoccult stool.? Hemoglobin hematocrit stable but downtrending from August.? Patient did have mild A. fib with RVR with rates in the low 100s.? She was given a dose of metoprolol p.o.? Surgery was consulted and recommends hospitalization and likely scope at some point during hospitalization.? She is currently admitted to the hospital service. The above per Dr. Melgar, Hospitalist Dr. Webster was contacted overnight for help with rate control. Dr. Leiva contacted us to inquire about clearance for EGD as well. Patient denies any chest pain, pressure or tightness. Cognitive impairment noted which makes it somewhat difficult to communicate with patient. Currently in the bed in the ICU in no acute distress. Heart rates in the 80-100 range with blood pressure controlled. Telemetry reveals atrial fibrillation with controlled ventricular response. Troponins have returned normal x2 this admission. [facility] Disclaimer: The information contained in this section may have been updated after the patient was seen, as this information can be updated by other users. Medical History Abnormal electrocardiography Atrial fibrillation Social History Smoking Status: Never smoker alcohol intake: never substance use type: denies use current occupational status: retired Travel in the last 8 weeks: None household members: spouse housing: house Review of Systems Review of Systems Review of systems:: pertinent systems reviewed and negative unless documented below *Cardiovascular Cardiovascular: Denies chest pain and Denies dyspnea *Respiratory Respiratory: Denies dyspnea *Gastrointestinal Gastrointestinal: Reports melena *Neurologic Neurologic: Reports system reviewed and no additional complaints, except as documented Exam Data for Last 24 hours Vital signs and Labs for Last 24 Hours: Temp Pulse Resp BP Pulse Ox 98.1 F 85 18 121/60 99 10/29/22 11:07 10/29/22 11:07 10/29/22 11:07 10/29/22 11:07 10/29/22 10:30 Laboratory Results - last 24 hr 10/28/22 18:25: Stool Occult Blood Positive A 10/28/22 18:25: WBC 5.2, RBC 3.74 L, Hgb 12.1 L, Hct 35.8 L, MCV 95.8, MCH 32.
--- NOTE | 2022-10-29 12:02 | HMH.PTEV ---
Physical Therapy Evaluation Rehab PT IP Evaluation Start: 10/29/22 10:15 Freq: .once Status: Active Protocol: Document 10/29/22 11:18 BRYANANITA (Rec: 10/29/22 12:01 BRYANANITA [id number]) Subjective/History History History Pt is a 77 y/o female who presented to [facility] ER with on 10/29/22 with complaints of melena and mild hypotension. 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 Medical History: Abnormal electrocardiography, Atrial fibrillation, history of cerebral aneurysm, hypertension Subjective Subjective Pt was hard of hearing and poor historian with baseline function and living environment unobtainable. Pt required minAx1 for dynamic sitting balance while putting on socks on EOB and required minAx1 for walker navigation during ambulation. Rehab PT IP Eval Objective Appearance Patient Behavior Cooperative,Confused Patient Orientation Person,Birthday Difficulty following instructions mild Speech Pattern Clear,Coherent Ambulation Patient Able to Ambulate Yes Ambulation Observation IP General Gait Pattern Observation Wide Based Gait Ambulation Distance (feet) 15 Ambulation Assistive Device Rolling Walker Ambulation Ability Contact Guard/Hand Hold, Minimal x 1 (25% assist) Balance Ability to Arise Able, uses arms to help Sitting Balance Steady, safe Standing Balance Steady, wide stance Dynamic Sitting Balance Ability Fair Dynamic Standing Balance Ability Fair Transfers Bed Transfer Ability Minimal x 2 (25% assist) Sit to Stand Bed Transfer Ability Contact Guard/Hand Hold, Minimal x 1 (25% assist) Rehab PT IP prob,goals,plan Problems Date of Evaluation: 10/29/22 PT IP Problems Bed Mobility,Transfers,Gait, Balance,Self care,Safety Rehab Potential Rehab Potential Good Equipment Needs Assistive Devices
--- NOTE | 2022-10-29 12:12 | CA_ITS ---
APPROVED REPORT EXAM: Comprehensive 2D, Doppler, and color-flow Echocardiogram Game Design Instructor: Clari Rainey, RT(R) Ht: 5 ft 9 in Wt: 137lbs BSA: 1.76 BP: 000/00 mmHg Indications: AFIB, GI bleed, smoker, HTN, dementia, pre op clearance EGD. 2D Dimensions LVOT 1.89 cm (M/F) 1.5-2.5 LA Volume 55.60 mL LA Volume Index 31.59 mL/m2 (M/F) 16-34 M-Mode Dimensions RVDd 2.29 cm (0.9-2.6) LA Diam 4.38 cm (1.9-4.0) LVDd 4.19 cm (3.5-5.7) Ao Diam 3.12 cm (2.0-3.7) LVDs 3.12 cm (3.5-5.7) IVSd 0.86 cm (0.6-1.1) PWd 0.72 cm (0.6-1.1) EF (Teich) 50.70% FS 25.50% EDV (Teich) 78.10 mL ESV (Teich) 38.50 mL Aortic Valve LVOT Max 86.00 (70-110 cm/s) LVOT VTI 14.07 cm AoV Peak Rudy. 142.00 (50-130 cm/s) AI PHT 623.00 ms AO Peak GR. 8.10 mmHg AO Mean GR. 3.90 (<5 mmHg) AO VTI 22.91 (18-25 cm) KLEVER (VTI) 1.72 (2.5-4.5 cm2) Tricuspid Valve TR P. Velocity 277.00 cm/s RAP Estimate 15.00 mmHg RVSP 45.60 mmHg Left Ventricle Left atrium is mildly enlarged, left ventricle is normal size mild concentric left ventricular hypertrophy, estimated ejection fraction 55% with no regional wall motion abnormality, diastolic parameters are inconclusive. Right Ventricle Right atrium and right ventricle qualitatively mildly enlarged with normal contractility. Aortic Valve Aortic valve is thickened and calcified without aortic stenosis, there is moderate aortic insufficiency. Mitral Valve Mitral valve is grossly normal, there is mild mitral regurgitation. Tricuspid Valve Tricuspid valve grossly normal, there is mild tricuspid regurgitation, calculated right ventricular systolic pressure is 43 mmHg. Pulmonic Valve Pulmonic valve is poorly visualized. Great Vessels Aortic root is normal size. Inferior vena cava is normal size with normal inspiratory collapse. Pericardium No significant pericardial effusion noted. Conclusion 1. Mild biatrial enlargement, normal left ventricular size, mild concentric left ventricular hypertrophy, estimated ejection fraction 55% with no regional wall motion abnormality, diastolic parameters are inconclusive. 2. Mildly enlarged right ventricle with normal contractility. 3. Mildly mitral, moderate aortic and mild tricuspid regurgitation, calculated right ventricular systolic pressure is 43 mmHg. 4. No significant pericardial effusion noted. 5. Inferior vena cava is normal size with normal inspiratory collapse. Electronically signed by : Juventino Francisco MD 10/30/2022 07:07:49
--- NOTE | 2022-10-29 14:14 | CARE MANAGER ---
Per therapy this morning, patient would benefit from inpatient rehab upon discharge. I spoke with patient's spouse this afternoon, who stated that he privately pays for patient to live with a woman who takes great care of her. He plans for her to return to same home upon discharge.
--- NOTE | 2022-10-29 14:42 | EXP.ANES.CKL ---
[facility] Disclaimer: The information contained in this section may have been updated after the patient was seen, as this information can be updated by other users. Medical History Abnormal electrocardiography Atrial fibrillation Social History Smoking Status: Never smoker alcohol intake: never substance use type: denies use current occupational status: retired Travel in the last 8 weeks: None household members: spouse housing: house [facility] Anesthesia Checklist Patient Identification Patient Identification: Arm Band and Verbal (Name & ) Structural Data Admitted From: Inpatient Planned Operative Procedure/s: EGD Consent for Planned Operative Procedure(s) Verified: Yes NPO Status Verified Time NPO: 00:00 Chart Verification Results Verified: CBC, BMP and PT, PTT, INR Airway Assessment C-Spine Mobility Assessed: Yes TMJ Mobility Assessed: Yes Neurological Assessment Level of Consciousness: Awake and Combative Hx Seizures: No Numbness or tingling in extremities: No Anesthesia Plan Anesthesia Risk discussed: Yes Anesthesia Plan: Verified ASA Class: IV Anesthesia Type: MAC
--- NOTE | 2022-10-29 15:13 | P.PCN_ITS ---
Procedure: Date: 10/29/22 Patient Date of :: 1945 Procedure Performed:: Esophagogastroduodenoscopy with biopsy Indications:: Anemia Melena Performing Provider:: Napoleon Leiva MD Referring Provider:: . Sedation:: Monitored anesthesia care Procedure:: After informed consent was obtained the patient was taken to the endoscopy suite. Sedation ensued after the patient was transferred to the left lateral d ecubitus position. Pulse, blood pressure, and oxygen saturation were monitored throughout the procedure. The endoscope was advanced beyond the duodenal bulb. Retroflexion within the gastric lumen was accomplished. The gastroscope was carefully removed and the patient was transferred to recovery in stable condition. Please see findings and specimens below for detail. Findings:: No evidence of active or recent hemorrhage No obvious ulcerative lesion Patchy/streaking mild to moderate gastritis Moderate to large sliding hiatal hernia Specimens:: Antral biopsy Recommendations:: Follow-up pathology Continue current medical management (proton pump inhibition, serial H/H, etc.) Although lower source remains a possibility (ongoing consideration of colonoscopy in relatively near future), small bowel etiology (AVM, etc.) is seemingly more likely secondary to recent history of dark tarry stools UGI/SBFT followed by capsule endoscopy in near future warranted Complications:: No immediate Estimated blood obtained (mL): 1
[2022-10-29 16:35] LABS: Hematocrit 27.3 % (37.0-47.0); Hemoglobin 9.4 g/dL (12.2-16.2)
--- NOTE | 2022-10-29 16:35 | PC.NURSE ---
Patient resting comfortably in bed, alert to person only, EGD completed this shift, patient tolerated well, vss, afib per telemetry, denies any cp or soa, lung sounds diminished t/o, abd soft with hypoactive bowel sounds in all quads, incontinent of bowel and bladder, peripheral pulses 1+, no edema noted, bed in lowest position with call light in reach.
[2022-10-29 19:36] LABS: Adenovirus F 40/41, stool Not Detected (NotDetected); Astrovirus Not Detected (NotDetected); Campylobacter Not Detected (NotDetected); Cryptosporidium Not Detected (NotDetected); Cyclospora Cayetanesis Not Detected (NotDetected); Entamoeba histolytica Not Detected (NotDetected); Enteroaggregative E coli Not Detected (NotDetected); Enteropathogenic E coli Not Detected (NotDetected); Enterotoxigenic E coli Not Detected (NotDetected); Giardia lamblia Not Detected (NotDetected); Norovirus Not Detected (NotDetected); Plesimonas Shigalloides, PCR Not Detected (NotDetected); Rotavirus A Not Detected (NotDetected); Salmonella, PCR Not Detected (NotDetected); Sapovirus Not Detected (NotDetected); Shiga-like toxin E coli Not Detected (NotDetected); Shigella Enterovasive E coli Not Detected (NotDetected); Vibrio Cholerae Not Detected (NotDetected); Vibrio, PCR Not Detected (NotDetected); Yersinia Entercolitica, PCR Not Detected (NotDetected)
[2022-10-29 22:08] LABS: Microscopic, Urine URINE MICROSCOPIC (MICROSCOPIC)
[2022-10-29 22:11] LABS: Appearance,Urine CLEAR (Clear); Bilirubin,Urine Negative (Negative); Blood, Urine 2+ (Negative); Color,Urine YELLOW (Yellow); Glucose,Urine (UA) Negative (Negative); Ketones,Urine Negative (Negative); Leukocyte Esterase,Urine TRACE (Negative); Nitrate,Urine POSITIVE (Negative); PH,Urine 5.5 (5.0-8.5); Protein,Urine Negative (Negative)
[2022-10-29 22:28] LABS: Bacteria,Urine 4+ /lpf; Calcium Oxalate Crystals,Urine 2+ /lpf; Squamous Epithelial Cell,Urine Occasional #/hpf (0-5); WBC,Urine Occasional #/hpf (0-3)
[2022-10-30] VITALS (11 sets, daily range): BP systolic 98–132; BP diastolic 62–73; PULSE 89–124; RESP 18–36; TEMP 36.4–36.7; O2SAT 92–98; BMI 20.9; BMI 20.8
--- NOTE | 2022-10-30 00:26 | PC.NURSE ---
0026 lab called with + stool for c-diff to deysi castle rn , results were given to Susan Tom aprn per deysi castle rn.
[2022-10-30 00:29] LABS: Clostridium Difficile A/B, PCR Detected (NotDetected)
--- NOTE | 2022-10-30 00:30 | PC.NURSE ---
Diarrhea panel called Positive result for C diff.
--- NOTE | 2022-10-30 00:56 | PC.NURSE ---
spoke with Susan RODRIGUEZ aware of result positive for C Diff.
--- NOTE | 2022-10-30 05:13 | PC.NURSE ---
pt is alert to name only, pt restless through the night, pulling at wires and chords, pt remains in atrial fib with rate 105-110, skin pwd with redness noted to rectal area from loose bms, pt is positive for c-diff, VSS, no active bleeding noted, stool was positive for occult blood, protonix drip infusing, pt is incontinent of stool and urine, no other issues or concerns noted at this time.
--- NOTE | 2022-10-30 07:11 | P.PN_ITS ---
Subjective Patient reports: no new complaints Narrative: Per nursing, she is less combative . Nursing also reports no additional episodes of melena. Exam Data for Last 24 hours Vital signs and Labs for Last 24 Hours: Temp Pulse Resp BP Pulse Ox 98.0 F 105 H 20 117/67 98 10/30/22 00:00 10/30/22 04:00 10/30/22 04:00 10/30/22 04:00 10/30/22 04:00 Laboratory Results - last 24 hr 10/28/22 19:26: Stl Aeromonas (PCR) Not detected, Stl C. cayetanensis PCR Not detected, Stool Rotavirus (PCR) Not detected, Stl Adenov F 40/41 PCR Not detected, Stool Astrovirus (PCR) Not detected, Stool Campylobacter PCR Not detected, Stl C.difficile Tox PCR Detected A, Stool Cryptosporidium PCR Not detected, Stl E.coli Shiga Tox PCR Not detected, Stool E coli O157 PCR Not detected, Stl Enterotoxigenic E PCR Not detected, Stool EPEC (PCR) Not detected, Stool EAEC (PCR) Not detected, Stl E. histolytica PCR Not detected, Stool Giar janey Lamblia PCR Not detected, Stool Salmonella PCR Not detected, Stool Sapovirus (PCR) Not detected, Stl P. shigelloides PCR Not detected, Stl Shigella/EIEC PCR Not detected, St Y.enterocolitica PCR Not detected, Stool Vibrio (PCR) Not detected, Stl Vibrio cholerae PCR Not detected, Stl Norovirus GI/GII PCR Not detected 10/29/22 16:20: Hgb 9.4 L, Hct 27.3 L 10/29/22 21:57: Urine Color Yellow, Urine Appearance Clear, Urine pH 5.5, Ur Specific [place] 1.020, Urine Protein Negative, Urine Glucose (UA) Negative, Urine Ketones Negative, Urine Blood 2+, Urine Nitrate Positive, Urine Bilirubin Negative, Urine Urobilinogen 1.0, Ur Leukocyte Esterase Trace, Urine RBC 3-5, Urine WBC Occasional, Ur Squamous Epith Cells Occasional, Calcium Oxalate Crystal 2+, Urine Bacteria 4+ I & O for Last 24 hours: Intake & Output 10/27/22 10/28/22 10/29/22 10/30/22 11:59 11:59 11:59 11:59 Intake Total 989 / 989 Output Total 390 / 390 Balance 599 / 599 Weight 137 lb 141 lb Constitutional Constitutional: no acute distress *Routine Respiratory Exam Respiratory: Absent respiratory distress *Routine Cardiovascular Exam Comments: Mildly tachycardic Progress Note: A&P Assessment and plan (1) Acute GI bleeding: Status: Acute Assessment and plan: No obvious source noted per esophagogastroduodenoscopy yesterday. Small bowel source (AVM, etc.) remains a distinct possibility. Colonic source (although somewhat less likely) also remains a possibility. She currently has no definitive sign of continued bleeding. Continue evaluation management as per primary service Consideration of UGI/SBFT followed by capsule endoscopy in the outpatient setting Consideration of colonoscopy in the near future in the outpatient setting (2) Melena: Status: Acute (3) Atrial fibrillation with rapid ventricular response: Status: Acute
--- NOTE | 2022-10-30 07:40 | EXP.CARD.PN ---
Subjective Subjective Date: 10/30/22 Time: 07:40 Principal diagnosis: GI bleed, atrial fibrillation Interval history: 77-year-old white female in bed in no acute distress but is confused. She is unable to answer where she is located. She does not answer appropriately to questions. Patient does have a history of intracranial aneurysm repair with recent CT of the head 2 months ago showing no acute changes. Telemetry shows atrial fibrillation with a rate of 100 to 120 bpm. EGD yesterday showed patchy red streaking mild to moderate gastritis with moderate to large sliding hiatal hernia. No active bleeding noted. Exam Data for Last 24 hours Vital signs and Labs for Last 24 Hours: Temp Pulse Resp BP Pulse Ox 98.0 F 105 H 20 117/67 98 10/30/22 00:00 10/30/22 04:00 10/30/22 04:00 10/30/22 04:00 10/30/22 04:00 Laboratory Results - last 24 hr 10/28/22 19:26: Stl Aeromonas (PCR) Not detected, Stl C. cayetanensis PCR Not detected, Stool Rotavirus (PCR) Not detected, Stl Adenov F 40/41 PCR Not detected, Stool Astrovirus (PCR) Not detected, Stool Campylobacter PCR Not detected, Stl C.difficile Tox PCR Detected A, Stool Cryptosporidium PCR Not detected, Stl E.coli Shiga Tox PCR Not detected, Stool E coli O157 PCR Not detected, Stl Enterotoxigenic E PCR Not detected, Stool EPEC (PCR) Not detected, Stool EAEC (PCR) Not detected, Stl E. histolytica PCR Not detected, Stool Giardia Lamblia PCR Not detected, Stool Salmonella PCR Not detected, Stool Sapovirus (PCR) Not detected, Stl P. shigelloides PCR Not detected, Stl Shigella/EIEC PCR Not detected, St Y.enterocolitica PCR Not detected, Stool Vibrio (PCR) Not detected, Stl Vibrio cholerae PCR Not detected, Stl Norovirus GI/GII PCR Not detected 10/29/22 16:20: Hgb 9.4 L, Hct 27.3 L 10/29/22 21:57: Urine Color Yellow, Urine Appearance Clear, Urine pH 5.5, Ur Specific [place] 1.020, Urine Protein Negative, Urine Glucose (UA) Negative, Urine Ketones Negative, Urine Blood 2+, Urine Nitrate Positive, Urine Bilirubin Negative, Urine Urobilinogen 1.0, Ur Leukocyte Esterase Trace, Urine RBC 3-5, Urine WBC Occasional, Ur Squamous Epith Cells Occasional, Calcium Oxalate Crystal 2+, Urine Bacteria 4+ I & O for Last 24 hours: Intake & Output 10/27/22 10/28/22 10/29/22 10/30/22 11:59 11:59 11:59 11:59 Intake Total 989 / 989 Output Total 390 / 390 Balance 599 / 599 Weight 137 lb 141 lb Constitutional Constitutional: no acute distress *Routine Respiratory Exam Respiratory: Present CTA bilaterally *Routine Cardiovascular Exam Cardiovascular: Present irregular rhythm Progress Note: A&P Assessment and plan (1) Acute GI bleeding: Status: Acute (2) Melena: Status: Acute (3) Atrial fibrillation with rapid ventricular response: Status: Acute Assessment and Plan Assessment and Plan for All Diagnoses:: 1. GI bleed work-up in progress 2. Atrial fibrillation with rapid ventricular response, continue metoprolol tartrate 50 mg but will increase to 3 times daily as blood pressure allows. Echocardiogram yesterday showed preserved ejection fraction with no significant valve disease. Anticoagulation discontinued due to GI bleed. 3. History of intracranial aneurysm repair with baseline cognitive impairment.
[2022-10-30 09:03] LABS: Basophils % 0.8 % (0.1-2.0); Eosinophils # 0.2 K/mm3 (0.0-0.4); Eosinophils % 2.9 % (0.1-12.0); Hematocrit 27.3 % (37.0-47.0); Hemoglobin 10.3 g/dL (12.2-16.2); Lymphocytes # 1.6 K/mm3 (0.7-4.5); Lymphocytes % 30.2 % (10-50); Mean Corpuscular HGB Conc 37.9 g/dL (31.8-35.4); Mean Corpuscular Volume 95.1 fl (81-99); Mean Platelet Volume 9.9 fl (7.4-10.4); Monocytes # 0.2 K/mm3 (0.1-1.0); Monocytes % 4.4 % (1.7-9.3); Neutrophils # 3.2 K/mm3 (1.8-7.8); Neutrophils % 61.7 % (37.0-80.0); Platelet Count 187 K/mm3 (142-424); Red Blood Count 2.87 M/mm3 (4.20-5.40); Red Cell Distribution Width 15.6 % (11.5-17.5); White Blood Count 5.1 K/mm3 (4.8-10.8)
[2022-10-30 09:13] LABS: Chloride 107 mmol/L (98-107); Potassium 3.1 mmoL/L (3.5-5.1); Sodium 140 mmol/L (136-145)
[2022-10-30 09:15] LABS: Blood Urea Nitrogen 12 mg/dl (7-17); Creatinine Clearance Estimated 48 mL/min (50-200); Estimated Glomerular Filt Rate 70 ml/min (>60); GFR (African American) 84 ML/MIN (>60)
[2022-10-30 09:16] LABS: Alanine Aminotransferase 19 U/L (12-78); Albumin Level 2.9 g/dl (3.5-5.0); Albumin/Globulin Ratio 1.3 (1.1-1.8); Alkaline Phosphatase 91 U/L (38-126); Anion Gap 10.1 mEq/L (5-15); Aspartate Amino Transferase 27 U/L (14-36); Bilirubin,Total 0.6 mg/dl (0.2-1.3); Calcium 8.8 mg/dl (8.4-10.2); Carbon Dioxide 26 mmol/L (22.0-30.0); Globulin 2.2 g/dL (1.3-3.2); Glucose 89 mg/dl (74-100); Total Protein,Serum 5.1 g/dl (6.3-8.2)
--- NOTE | 2022-10-30 14:52 | PC.NURSE ---
PT IS RESTING IN BED WITH FAMILY AT BEDSIDE. ALERT TO SELF ONLY. PLEASANTLY CONFUSED. BATH AND BED CHANGE THIS SHIFT. TOLERATING FULL LIQUID DIET. LUNG SOUNDS CLEAR. ABDOMEN SOFT/NON TENDER WITH ACTIVE BOWEL SOUNDS. PURWICK IN PLACE. REDNESS NOTED TO THE BUTTOCKS. SKUDS NOTED TO BLE. WILL CONTINUE TO MONITOR.
--- NOTE | 2022-10-30 16:25 | EXP.PN ---
Subjective *Date: 10/30/22 *Time: 16:25 Interval history: No acute events overnight, patient remains pleasantly confused. Exam Data for Last 24 hours Vital signs and Labs for Last 24 Hours: Temp Pulse Resp BP Pulse Ox 97.6 F 89 20 112/73 96 10/30/22 11:33 10/30/22 15:50 10/30/22 15:50 10/30/22 15:50 10/30/22 15:50 Laboratory Results - last 24 hr 10/28/22 19:26: Stl Aeromonas (PCR) Not detected, Stl C. cayetanensis PCR Not detected, Stool Rotavirus (PCR) Not detected, Stl Adenov F 40/41 PCR Not detected, Stool Astrovirus (PCR) Not detected, Stool Campylobacter PCR Not detected, Stl C.difficile Tox PCR Detected A, Stool Cryptosporidium PCR Not detected, Stl E.coli Shiga Tox PCR Not detected, Stool E coli O157 PCR Not detected, Stl Enterotoxigenic E PCR Not detected, Stool EPEC (PCR) Not detected, Stool EAEC (PCR) Not detected, Stl E. histolytica PCR Not detected, Stool Giardia Lamblia PCR Not detected, Stool Salmonella PCR Not detected, Stool Sapovirus (PCR) Not detected, Stl P. shigelloides PCR Not detected, Stl Shigella/EIEC PCR Not detected, St Y.enterocolitica PCR Not detected, Stool Vibrio (PCR) Not detected, Stl Vibrio cholerae PCR Not detected, Stl Norovirus GI/GII PCR Not detected 10/29/22 16:20: Hgb 9.4 L, Hct 27.3 L 10/29/22 21:57: Urine Color Yellow, Urine Appearance Clear, Urine pH 5.5, Ur Specific [place] 1.020, Urine Protein Negative, Urine Glucose (UA) Negative, Urine Ketones Negative, Urine Blood 2+, Urine Nitrate Positive, Urine Bilirubin Negative, Urine Urobilinogen 1.0, Ur Leukocyte Esterase Trace, Urine RBC 3-5, Urine WBC Occasional, Ur Squamous Epith Cells Occasional, Calcium Oxalate Crystal 2+, Urine Bacteria 4+ 10/30/22 08:25: WBC 5.1 D, RBC 2.87 L, Hgb 10.3 L, Hct 27.3 L, MCV 95.1, MCH 36.0 H, MCHC 37.9 H, RDW 15.6, Plt Count 187 D, MPV 9.9, Neut % (Auto) 61.7, Lymph % (Auto) 30.2, [place] % (Auto) 4.4, Eos % (Auto) 2.9, Baso % (Auto) 0.8, Neut # (Auto) 3.2, Lymph # (Auto) 1.6, [place] # (Auto) 0.2, Eos # (Auto) 0.2, Baso # (Auto) 0.0 10/30/22 08:25: Sodium 140, Potassium 3.1 L D, Chloride 107, Carbon Dioxide 26, Anion Gap 10.1, BUN 12, Creatinine 0.80, Estimated Creat Clear 48, Estimated GFR 70, Est GFR ( Amer) 84, Glucose 89, Calcium 8.8, Total Bilirubin 0.6, AST 27, ALT 19, Alkaline Phosphatase 91, Total Protein 5.1 L, Albumin 2.9 L, Globulin 2.2, Albumin/Globulin Ratio 1.3 I & O for Last 24 hours: Intake & Output 10/27/22 10/28/22 10/29/22 10/30/22 23:59 23:59 23:59 23:59 Intake Total 240 / 240 1752 / 1752 Output Total 120 / 240 520 / 520 Balance 120 / 0 1232 / 1232 Weight 62.142 kg 62.284 kg 63.9 kg Constitutional Constitutional: no acute distress, average body habitus, thin, chronically ill appearing and cooperative Comments: Pleasantly confused *Routine HEENT Exam Head: Present normocephalic and atraumatic Eye: Present EOMI and PERRL ENT: Present mucous membranes dry and oropharynx clear *Routine Neck Exam Neck: Present supple and full ROM *Routine Respiratory Exam Respiratory: Present CTA bilaterally, normal respiratory effort and able to speak in complete sentences; Absent accessory muscle use, respiratory distress, rhonchi, wheezes or crackles *Routine Cardiovascular Exam Cardiovascular: Present Normal S1, Normal S2, murmur, tachycardia (Slightly) and irregularly irregular *Routine Abdominal Exam Abdominal: Present soft and normoactive bowel sounds; Absent tenderness, distended, rebound or guarding *Routine Extremities Exam Extremities: Present full ROM, pulses intact and normal capillary refill; Absent edema or tenderness *Routine Neurological Exam Neurological: Present alert, CN II-XII intact, altered mental status, moving all extremities, normal tone and normal speech; Absent oriented X3 (Oriented to name only), sensory deficit or motor deficit Routine Psychiatric Exam Psychiatric: Present normal affect and cooperative; Absent normal thought process, good insight or good judgment
--- NOTE | 2022-10-30 17:11 | PC.NURSE ---
PT IS SITTING UP IN BED WITH FAMILY AT BEDSIDE. PT CONTINUES TO BE VERY ANXIOUS/RESTLESS. O2 SATURATION HAS MAINTAINED 93-96% ON CPAP. WHEN CPAP IS REMOVED FOR ORAL CARE OR A DRINK OFF WATER PT DESATS RAPIDLY TO THE LOW 80'S. PT HAS BEEN WANTING TO REMOVE CIPAP OFF AND ON T/O THE AFTERNOON AND HAS ATTEMPTED TO GET OOB AT TIMES. PT HAS BEEN ASKING FREQUENTLY WHY DO I HAVE TO LEAVE THE MASK ON . HR HAS MAINTAINED 115-130 T/O THE SHIFT. RESPIRATIONS 36-50. PT HAS DIURESED OVER 3 L. WILL CONTINUE TO MONITOR.
[2022-10-31 03:56] VITALS: BP 112/51; PULSE 88; RESP 18; TEMP 36.9; O2SAT 94; BMI 22.1
--- NOTE | 2022-10-31 06:19 | PC.NURSE ---
pt alert to name and only, pt confused to place and time, vss, pt incontinent of urine and stool, pt without any nausea or vomiting this shift, turned q2 hours, redness noticed to coccyx area, iv replace as pt pulled iv out, no other issues or concerns noted at this time.
[2022-10-31 07:35] LABS: Chloride 111 mmol/L (98-107); Sodium 140 mmol/L (136-145)
[2022-10-31 07:36] LABS: Potassium 3.2 mmoL/L (3.5-5.1)
[2022-10-31 07:38] LABS: Alanine Aminotransferase 13 U/L (12-78); Albumin Level 2.7 g/dl (3.5-5.0); Albumin/Globulin Ratio 1.2 (1.1-1.8); Alkaline Phosphatase 85 U/L (38-126); Anion Gap 5.2 mEq/L (5-15); Aspartate Amino Transferase 25 U/L (14-36); Bilirubin,Total 0.6 mg/dl (0.2-1.3); Blood Urea Nitrogen 12 mg/dl (7-17); Carbon Dioxide 27 mmol/L (22.0-30.0); Creatinine Clearance Estimated 51 mL/min (50-200); Estimated Glomerular Filt Rate 70 ml/min (>60); GFR (African American) 84 ML/MIN (>60); Globulin 2.2 g/dL (1.3-3.2); Total Protein,Serum 4.9 g/dl (6.3-8.2)
[2022-10-31 07:39] LABS: Calcium 8.5 mg/dl (8.4-10.2); Glucose 79 mg/dl (74-100)
[2022-10-31 07:40] LABS: Basophils % 1.2 % (0.1-2.0); Eosinophils # 0.1 K/mm3 (0.0-0.4); Eosinophils % 3.4 % (0.1-12.0); Hematocrit 25.3 % (37.0-47.0); Lymphocytes # 1.3 K/mm3 (0.7-4.5); Lymphocytes % 44.8 % (10-50); Mean Corpuscular HGB Conc 34.8 g/dL (31.8-35.4); Mean Corpuscular Hemoglobin 33.1 pg (27.0-31.2); Mean Platelet Volume 10.7 fl (7.4-10.4); Monocytes # 0.2 K/mm3 (0.1-1.0); Monocytes % 6.3 % (1.7-9.3); Neutrophils # 1.3 K/mm3 (1.8-7.8); Neutrophils % 44.4 % (37.0-80.0); Platelet Count 153 K/mm3 (142-424); Red Blood Count 2.66 M/mm3 (4.20-5.40); Red Cell Distribution Width 15.4 % (11.5-17.5); White Blood Count 2.9 K/mm3 (4.8-10.8)
[2022-10-31 07:42] LABS: Hemoglobin 8.8 g/dL (12.2-16.2)
[2022-10-31 08:00] VITALS: BP 126/78; PULSE 104; RESP 18; TEMP 36.9; O2SAT 98; O2SAT 99
--- NOTE | 2022-10-31 08:13 | CT_ITS ---
FINAL REPORT CLINICAL HISTORY: GI bleed, Ab pain COMPARISON: June 2022 FINDINGS: CT OF THE ABDOMEN AND PELVIS WITH CONTRAST Axial CT images of the abdomen and pelvis were obtained after the administration of intravenous contrast. Coronal reformatted images were also obtained and reviewed.This study was performed with techniques to keep radiation doses as low as reasonably achievable (ALARA). Individualized dose reduction techniques using automated exposure control or adjustment of mA and/or kV according to the patient's size were employed. Abdomen: There are small to moderate bilateral pleural effusions. There is bilateral lower lobe atelectasis. The heart is normal in size. The liver has an unremarkable appearance, without evidence of mass or biliary ductal dilatation. The gallbladder is not seen and may be surgically absent. The spleen is unremarkable. There is mild bilateral adrenal gland enlargement favoring hyperplasia. The pancreas has an unremarkable appearance. The kidneys are normal, without evidence of mass or hydronephrosis. The aorta is normal in caliber. There is no free fluid or adenopathy. No mass or abnormal fluid collection is seen. There is mild anasarca. There is a severe L1 compression fracture with 90% loss of height that is new from the prior exam and causes canal stenosis at this level. Pelvis: The appendix is normal. There is diverticulosis of the sigmoid colon. The urinary bladder is unremarkable. No inflammatory process is seen. There is no evidence of mass or adenopathy. There is no evidence of bowel obstruction. IMPRESSION: Diverticulosis without evidence of diverticulitis. Severe L1 compression fracture resulting in canal stenosis, new from prior. If indicated, MRI could further evaluate. Small to moderate bilateral pleural effusions with bibasilar atelectasis. Reviewed, Interpreted and Dictated by Bryan Anaya III, MD Transcribed by Lincoln Gtz Authenticated and [facility]
--- NOTE | 2022-10-31 09:02 | EXP.CARD.PN ---
Subjective Subjective Date: 10/31/22 Time: 09:02 Principal diagnosis: GI bleed, atrial fibrillation Interval history: 77 yo pleasantly confused WF in bedside chair eating breakfast in NAD. HR and BP have improved on increased metoprolol. Exam Data for Last 24 hours Vital signs and Labs for Last 24 Hours: Temp Pulse Resp BP Pulse Ox 98.5 F 88 18 112/51 L 94 L 10/31/22 03:56 10/31/22 03:56 10/31/22 03:56 10/31/22 03:56 10/31/22 03:56 Laboratory Results - last 24 hr 10/30/22 08:25: WBC 5.1 D, RBC 2.87 L, Hgb 10.3 L, Hct 27.3 L, MCV 95.1, MCH 36.0 H, MCHC 37.9 H, RDW 15.6, Plt Count 187 D, MPV 9.9, Neut % (Auto) 61.7, Lymph % (Auto) 30.2, [place] % (Auto) 4.4, Eos % (Auto) 2.9, Baso % (Auto) 0.8, Neut # (Auto) 3.2, Lymph # (Auto) 1.6, [place] # (Auto) 0.2, Eos # (Auto) 0.2, Baso # (Auto) 0.0 10/30/22 08:25: Sodium 140, Potassium 3.1 L D, Chloride 107, Carbon Dioxide 26, Anion Gap 10.1, BUN 12, Creatinine 0.80, Estimated Creat Clear 48, Estimated GFR 70, Est GFR ( Amer) 84, Glucose 89, Calcium 8.8, Total Bilirubin 0.6, AST 27, ALT 19, Alkaline Phosphatase 91, Total Protein 5.1 L, Albumin 2.9 L, Globulin 2.2, Albumin/Globulin Ratio 1.3 10/31/22 07:03: WBC 2.9 L D, RBC 2.66 L, Hgb 8.8 L D, Hct 25.3 L, MCV 95.0, MCH 33.1 H, MCHC 34.8, RDW 15.4, Plt Count 153, MPV 10.7 H, Neut % (Auto) 44.4, Lymph % (Auto) 44.8, [place] % (Auto) 6.3, Eos % (Auto) 3.4, Baso % (Auto) 1.2, Neut # (Auto) 1.3 L, Lymph # (Auto) 1.3, [place] # (Auto) 0.2, Eos # (Auto) 0.1, Baso # (Auto) 0.0 10/31/22 07:03: Sodium 140, Potassium 3.2 L, Chloride 111 H, Carbon Dioxide 27, Anion Gap 5.2, BUN 12, Creatinine 0.80, Estimated Creat Clear 51, Estimated GFR 70, Est GFR ( Amer) 84, Glucose 79, Calcium 8.5, Total Bilirubin 0.6, AST 25, ALT 13 D, Alkaline Phosphatase 85, Total Protein 4.9 L, Albumin 2.7 L, Globulin 2.2, Albumin/Globulin Ratio 1.2 I & O for Last 24 hours: Intake & Output 10/28/22 10/29/22 10/30/22 10/31/22 11:59 11:59 11:59 11:59 Intake Total 1469 / 1469 667 / 667 Output Total 590 / 590 50 / 50 Balance 879 / 879 617 / 617 Weight 137 lb 141 lb 149 lb 1 oz Microbiology Reports for the Last 24 Hours: Microbiology 10/29/22 21:57 Urine,Clean Catch Urine Culture - Preliminary NO GROWTH AFTER 24 HOURS Constitutional Constitutional: no acute distress *Routine Respiratory Exam Respiratory: Present decreased breath sounds; Absent rhonchi or wheezes *Routine Cardiovascular Exam Cardiovascular: Present irregularly irregular *Routine Extremities Exam Extremities: Absent edema Progress Note: A&P Assessment and plan (1) Acute GI bleeding: Status: Acute (2) Atrial fibrillation with rapid ventricular response: Status: Acute (3) Hypertension: Status: Acute (4) History of cerebral aneurysm: Status: Acute (5) Melena: Status: Acute (6) Intellectual disability: Status: Acute Assessment and Plan Assessment and Plan for All Diagnoses:: 1. A. fib with improved rate on increased metoprolol. No plans to re-institute anticoagulation at this time due to increased risk of GI bleed and fall risk. 2. GI bleed without identified etiology. Per Hospitalist, abdominal CT being ordered. 3. Cognitive impairment with history of brain surgery for aneurysm. Nothing further to add. Will sign off. Follow up in 1-2 wks in our office.
--- NOTE | 2022-10-31 09:46 | EXP.SURG.PN ---
Subjective Narrative: Per report, CT being obtained per primary service Exam Data for Last 24 hours Vital signs and Labs for Last 24 Hours: Temp Pulse Resp BP Pulse Ox 98.4 F 104 H 18 126/78 99 10/31/22 08:00 10/31/22 08:00 10/31/22 08:00 10/31/22 08:00 10/31/22 08:00 Laboratory Results - last 24 hr 10/29/22 21:57: Urine Color Yellow, Urine Appearance Clear, Urine pH 5.5, Ur Specific [place] 1.020, Urine Protein Negative, Urine Glucose (UA) Negative, Urine Ketones Negative, Urine Blood 2+, Urine Nitrate Positive, Urine Bilirubin Negative, Urine Urobilinogen 1.0, Ur Leukocyte Esterase Trace, Urine RBC 3-5, Urine WBC Occasional, Ur Squamous Epith Cells Occasional, Calcium Oxalate Crystal 2+, Urine Bacteria 4+ 10/31/22 07:03: WBC 2.9 L D, RBC 2.66 L, Hgb 8.8 L D, Hct 25.3 L, MCV 95.0, MCH 33.1 H, MCHC 34.8, RDW 15.4, Plt Count 153, MPV 10.7 H, Neut % (Auto) 44.4, Lymph % (Auto) 44.8, [place] % (Auto) 6.3, Eos % (Auto) 3.4, Baso % (Auto) 1.2, Neut # (Auto) 1.3 L, Lymph # (Auto) 1.3, [place] # (Auto) 0.2, Eos # (Auto) 0.1, Baso # (Auto) 0.0 10/31/22 07:03: Sodium 140, Potassium 3.2 L, Chloride 111 H, Carbon Dioxide 27, Anion Gap 5.2, BUN 12, Creatinine 0.80, Estimated Creat Clear 51, Estimated GFR 70, Est GFR ( Amer) 84, Glucose 79, Calcium 8.5, Total Bilirubin 0.6, AST 25, ALT 13 D, Alkaline Phosphatase 85, Total Protein 4.9 L, Albumin 2.7 L, Globulin 2.2, Albumin/Globulin Ratio 1.2 I & O for Last 24 hours: Intake & Output 10/28/22 10/29/22 10/30/22 10/31/22 11:59 11:59 11:59 11:59 Intake Total 1469 / 1469 1027 / 1027 Output Total 590 / 590 50 / 50 Balance 879 / 879 977 / 977 Weight 137 lb 141 lb 149 lb 1 oz Microbiology Reports for the Last 24 Hours: Microbiology 10/29/22 21:57 Urine,Clean Catch Urine Culture - Preliminary Gram Negative Rods Constitutional Comments: Deferred exam Progress Note: A&P Assessment and plan (1) Acute GI bleeding: Status: Acute Assessment and plan: CT ordered per primary service No obvious source noted per recent esophagogastroduodenoscopy.? Small bowel source (AVM, etc.) remains a distinct possibility.? Colonic source (although somewhat less likely) also remains a possibility.? She currently has no definitive sign of continued bleeding.? F/U CT results Continue evaluation management as per primary service Consideration of UGI/SBFT followed by capsule endoscopy in the outpatient setting Consideration of colonoscopy in the near future in the outpatient setting Note: As the patient is currently being treated for cDiff, delaying colonoscopy remains preferable (limited cross-contamination). In addition (although possible) the likelihood of locating a treatable source via colonoscopy is relatively limited. (2) Melena: Status: Acute (3) Atrial fibrillation with rapid ventricular response: Status: Acute
[2022-10-31 15:35] LABS: Chloride 107 mmol/L (98-107); Potassium 3.5 mmoL/L (3.5-5.1); Sodium 140 mmol/L (136-145)
[2022-10-31 15:37] LABS: Basophils % 0.6 % (0.1-2.0); Eosinophils # 0.2 K/mm3 (0.0-0.4); Eosinophils % 3.9 % (0.1-12.0); Hematocrit 29.2 % (37.0-47.0); Lymphocytes # 1.6 K/mm3 (0.7-4.5); Lymphocytes % 35.7 % (10-50); Mean Corpuscular HGB Conc 33.9 g/dL (31.8-35.4); Mean Corpuscular Hemoglobin 32.8 pg (27.0-31.2); Mean Corpuscular Volume 96.7 fl (81-99); Mean Platelet Volume 10.5 fl (7.4-10.4); Monocytes # 0.3 K/mm3 (0.1-1.0); Monocytes % 5.8 % (1.7-9.3); Neutrophils # 2.4 K/mm3 (1.8-7.8); Neutrophils % 54.1 % (37.0-80.0); Platelet Count 169 K/mm3 (142-424); Red Blood Count 3.01 M/mm3 (4.20-5.40); Red Cell Distribution Width 15.8 % (11.5-17.5); White Blood Count 4.5 K/mm3 (4.8-10.8)
[2022-10-31 15:38] LABS: Anion Gap 10.5 mEq/L (5-15); Blood Urea Nitrogen 10 mg/dl (7-17); Carbon Dioxide 26 mmol/L (22.0-30.0); Creatinine Clearance Estimated 51 mL/min (50-200); Estimated Glomerular Filt Rate 61 ml/min (>60); GFR (African American) 74 ML/MIN (>60)
[2022-10-31 15:39] LABS: Calcium 8.7 mg/dl (8.4-10.2); Glucose 82 mg/dl (74-100); Hemoglobin 9.9 g/dL (12.2-16.2)
--- NOTE | 2022-10-31 16:04 | EXP.PN ---
Subjective *Date: 10/31/22 *Time: 16:04 Interval history: No acute events overnight. Patient has no concerns or complaints today. She is resting comfortably. Exam Data for Last 24 hours Vital signs and Labs for Last 24 Hours: Temp Pulse Resp BP Pulse Ox 98.4 F 104 H 18 126/78 98 10/31/22 08:00 10/31/22 08:00 10/31/22 08:00 10/31/22 08:00 10/31/22 08:00 Laboratory Results - last 24 hr 10/29/22 21:57: Urine Color Yellow, Urine Appearance Clear, Urine pH 5.5, Ur Specific [place] 1.020, Urine Protein Negative, Urine Glucose (UA) Negative, Urine Ketones Negative, Urine Blood 2+, Urine Nitrate Positive, Urine Bilirubin Negative, Urine Urobilinogen 1.0, Ur Leukocyte Esterase Trace, Urine RBC 3-5, Urine WBC Occasional, Ur Squamous Epith Cells Occasional, Calcium Oxalate Crystal 2+, Urine Bacteria 4+ 10/31/22 07:03: WBC 2.9 L D, RBC 2.66 L, Hgb 8.8 L D, Hct 25.3 L, MCV 95.0, MCH 33.1 H, MCHC 34.8, RDW 15.4, Plt Count 153, MPV 10.7 H, Neut % (Auto) 44.4, Lymph % (Auto) 44.8, [place] % (Auto) 6.3, Eos % (Auto) 3.4, Baso % (Auto) 1.2, Neut # (Auto) 1.3 L, Lymph # (Auto) 1.3, [place] # (Auto) 0.2, Eos # (Auto) 0.1, Baso # (Auto) 0.0 10/31/22 07:03: Sodium 140, Potassium 3.2 L, Chloride 111 H, Carbon Dioxide 27, Anion Gap 5.2, BUN 12, Creatinine 0.80, Estimated Creat Clear 51, Estimated GFR 70, Est GFR ( Amer) 84, Glucose 79, Calcium 8.5, Total Bilirubin 0.6, AST 25, ALT 13 D, Alkaline Phosphatase 85, Total Protein 4.9 L, Albumin 2.7 L, Globulin 2.2, Albumin/Globulin Ratio 1.2 10/31/22 15:11: WBC 4.5 L D, RBC 3.01 L, Hgb 9.9 L D, Hct 29.2 L, MCV 96.7, MCH 32.8 H, MCHC 33.9, RDW 15.8, Plt Count 169, MPV 10.5 H, Neut % (Auto) 54.1, Lymph % (Auto) 35.7, [place] % (Auto) 5.8, Eos % (Auto) 3.9, Baso % (Auto) 0.6, Neut # (Auto) 2.4, Lymph # (Auto) 1.6, [place] # (Auto) 0.3, Eos # (Auto) 0.2, Baso # (Auto) 0.0 10/31/22 15:11: Sodium 140, Potassium 3.5, Chloride 107, Carbon Dioxide 26, Anion Gap 10.5, BUN 10, Creatinine 0.90, Estimated Creat Clear 51, Estimated GFR 61, Est GFR ( Amer) 74, Glucose 82, Calcium 8.7 I & O for Last 24 hours: Intake & Output 10/28/22 10/29/22 10/30/22 10/31/22 23:59 23:59 23:59 23:59 Intake Total 240 / 240 1752 / 1752 604 / 604 Output Total 120 / 240 520 / 520 0 / 0 Balance 120 / 0 1232 / 1232 604 / 604 Weight 62.142 kg 62.284 kg 63.9 kg 67.614 kg Microbiology Reports for the Last 24 Hours: Microbiology 10/29/22 21:57 Urine,Clean Catch Urine Culture - Preliminary Gram Negative Rods Constitutional Constitutional: no acute distress, average body habitus, thin, chronically ill appearing and cooperative Comments: Pleasantly confused *Routine HEENT Exam Head: Present normocephalic and atraumatic Eye: Present EOMI and PERRL ENT: Present mucous membranes dry and oropharynx clear *Routine Neck Exam Neck: Present supple and full ROM *Routine Respiratory Exam Respiratory: Present CTA bilaterally, normal respiratory effort and able to speak in complete sentences; Absent accessory muscle use, respiratory distress, rhonchi, wheezes or crackles *Routine Cardiovascular Exam Cardiovascular: Present Normal S1, Normal S2, murmur, tachycardia (Slightly) and irregularly irregular *Routine Abdominal Exam Abdominal: Present soft and normoactive bowel sounds; Absent tenderness, distended, rebound or guarding *Routine Extremities Exam Extremities: Present full ROM, pulses intact and normal capillary refill; Absent edema or tenderness *Routine Neurological Exam Neurological: Present alert, CN II-XII intact, altered mental status, moving all extremities, normal tone and normal speech; Absent oriented X3 (Oriented to name only), sensory deficit or motor deficit Routine Psychiatric Exam Psychiatric: Present normal affect and cooperative; Absent normal thought process, auditory hallucinations, visual hallucinations, good insight, good judgment, depressed, anxious or agitated Comments: Presentation
[2022-10-31 16:14] VITALS: BP 123/75; PULSE 103; RESP 22; TEMP 36.6; O2SAT 99
[2022-10-31 20:00] VITALS: BP 149/69; PULSE 109; RESP 18; TEMP 36.8; O2SAT 98
--- NOTE | 2022-10-31 21:32 | PC.NURSE ---
PATIENT RESTING IN BED FLAT AFFECT. DID NOT WANT ME TO TOUCH HER. I EXPLAINED I NEEDED TO DO AN ASSESSMENT ON HER BUT SHE STILL REFUSED. PATIENT REFUSED HER NIGHT TIME MEDS WELL. PSYCHE PROBLEMS NOTED.
[2022-11-01 04:00] VITALS: BP 145/67; PULSE 98; RESP 18; TEMP 36.9; O2SAT 99; BMI 21.6
[2022-11-01 07:59] LABS: Basophils % 0.5 % (0.1-2.0); Eosinophils # 0.2 K/mm3 (0.0-0.4); Eosinophils % 5.3 % (0.1-12.0); Hematocrit 27.9 % (37.0-47.0); Hemoglobin 9.7 g/dL (12.2-16.2); Lymphocytes # 0.8 K/mm3 (0.7-4.5); Lymphocytes % 22.9 % (10-50); Mean Corpuscular HGB Conc 34.6 g/dL (31.8-35.4); Mean Corpuscular Volume 95.3 fl (81-99); Mean Platelet Volume 9.1 fl (7.4-10.4); Monocytes # 0.1 K/mm3 (0.1-1.0); Monocytes % 4.3 % (1.7-9.3); Neutrophils # 2.2 K/mm3 (1.8-7.8); Platelet Count 173 K/mm3 (142-424); Red Blood Count 2.93 M/mm3 (4.20-5.40); Red Cell Distribution Width 15.6 % (11.5-17.5); White Blood Count 3.3 K/mm3 (4.8-10.8)
[2022-11-01 08:00] VITALS: BP 120/79; PULSE 112; RESP 16; TEMP 36.9
[2022-11-01 08:07] LABS: Chloride 110 mmol/L (98-107); Potassium 3.3 mmoL/L (3.5-5.1); Sodium 141 mmol/L (136-145)
[2022-11-01 08:10] LABS: Alanine Aminotransferase 12 U/L (12-78); Albumin Level 2.5 g/dl (3.5-5.0); Albumin/Globulin Ratio 1.3 (1.1-1.8); Alkaline Phosphatase 81 U/L (38-126); Anion Gap 8.3 mEq/L (5-15); Aspartate Amino Transferase 22 U/L (14-36); Bilirubin,Total 0.8 mg/dl (0.2-1.3); Blood Urea Nitrogen 10 mg/dl (7-17); Calcium 8.4 mg/dl (8.4-10.2); Carbon Dioxide 26 mmol/L (22.0-30.0); Creatinine Clearance Estimated 50 mL/min (50-200); Estimated Glomerular Filt Rate 61 ml/min (>60); GFR (African American) 74 ML/MIN (>60); Glucose 76 mg/dl (74-100); Total Protein,Serum 4.5 g/dl (6.3-8.2)
--- NOTE | 2022-11-01 09:22 | P.PN_ITS ---
Subjective Patient reports: no new complaints Narrative: Patient resting comfortably. No new issues. Exam Data for Last 24 hours Vital signs and Labs for Last 24 Hours: Temp Pulse Resp BP Pulse Ox 98.4 F 98 H 18 145/67 H 99 11/01/22 04:00 11/01/22 04:00 11/01/22 04:00 11/01/22 04:00 11/01/22 04:00 Laboratory Results - last 24 hr 10/29/22 21:57: Urine Color Yellow, Urine Appearance Clear, Urine pH 5.5, Ur Specific [place] 1.020, Urine Protein Negative, Urine Glucose (UA) Negative, Urine Ketones Negative, Urine Blood 2+, Urine Nitrate Positive, Urine Bilirubin Negative, Urine Urobilinogen 1.0, Ur Leukocyte Esterase Trace, Urine RBC 3-5, Urine WBC Occasional, Ur Squamous Epith Cells Occasional, Calcium Oxalate Crystal 2+, Urine Bacteria 4+ 10/31/22 15:11: WBC 4.5 L D, RBC 3.01 L, Hgb 9.9 L D, Hct 29.2 L, MCV 96.7, MCH 32.8 H, MCHC 33.9, RDW 15.8, Plt Count 169, MPV 10.5 H, Neut % (Auto) 54.1, Lymph % (Auto) 35.7, [place] % (Auto) 5.8, Eos % (Auto) 3.9, Baso % (Auto) 0.6, Neut # (Auto) 2.4, Lymph # (Auto) 1.6, [place] # (Auto) 0.3, Eos # (Auto) 0.2, Baso # (Auto) 0.0 10/31/22 15:11: Sodium 140, Potassium 3.5, Chloride 107, Carbon Dioxide 26, Anion Gap 10.5, BUN 10, Creatinine 0.90, Estimated Creat Clear 51, Estimated GFR 61, Est GFR ( Amer) 74, Glucose 82, Calcium 8.7 11/01/22 07:42: WBC 3.3 L D, RBC 2.93 L, Hgb 9.7 L, Hct 27.9 L, MCV 95.3, MCH 33.0 H, MCHC 34.6, RDW 15.6, Plt Count 173, MPV 9.1, Neut % (Auto) 67.0, Lymph % (Auto) 22.9, [place] % (Auto) 4.3, Eos % (Auto) 5.3, Baso % (Auto) 0.5, Neut # (Auto) 2.2, Lymph # (Auto) 0.8, [place] # (Auto) 0.1, Eos # (Auto) 0.2, Baso # (Auto) 0.0 11/01/22 07:42: Sodium 141, Potassium 3.3 L, Chloride 110 H, Carbon Dioxide 26, Anion Gap 8.3, BUN 10, Creatinine 0.90, Estimated Creat Clear 50, Estimated GFR 61, Est GFR ( Amer) 74, Glucose 76, Calcium 8.4, Total Bilirubin 0.8, AST 22, ALT 12, Alkaline Phosphatase 81, Total Protein 4.5 L, Albumin 2.5 L, Globulin 2.0, Albumin/Globulin Ratio 1.3 I & O for Last 24 hours: Intake & Output 10/29/22 10/30/22 10/31/22 11/01/22 11:59 11:59 11:59 11:59 Intake Total 1469 / 1469 1027 / 1027 726 / 726 Output Total 590 / 590 50 / 50 Balance 879 / 879 977 / 977 726 / 726 Weight 137 lb 141 lb 149 lb 1 oz 145 lb 12.8 oz Microbiology Reports for the Last 24 Hours: Microbiology 10/29/22 21:57 Urine,Clean Catch Urine Culture - Final Enterobacter cloacae Constitutional Constitutional: no acute distress Comments: Sleeping *Routine Abdominal Exam Abdominal: Present soft Progress Note: A&P Assessment and plan (1) Acute GI bleeding: Status: Acute Assessment and plan: Hemoglobin has been stable. No rectal bleeding. Has had diarrhea from C. difficile but this has improved. CT scan yesterday unremarkable. (2) Atrial fibrillation with rapid ventricular response: Status: Acute (3) Hypertension: Status: Acute (4) History of cerebral aneurysm: Status: Acute (5) Melena: Status: Acute (6) Intellectual disability: Status: Acute
--- NOTE | 2022-11-01 10:05 | EXP.DC.SUM ---
General Admission date:: 10/29/22 Discharge date: 11/01/22 HPI HPI HPI: This is a 77-year-old female seen in consultation from the Emergency Department and Hospitalist Service for possible endoscopic evaluation of gastrointestinal hemorrhage. Please see HPI from admission H&P forwarded below. Forwarded from admission H&P: This is a 77-year-old female with past medical history of atrial fibrillation on Eliquis, history of cerebral aneurysm, hypertension who presents emergency department with her for complaints of melena. Patient does have baseline cognitive delay secondary to cerebral aneurysm and is taking care of by home health and has been inside of the home. states that on Thursday she developed dark tarry stool and has not had an issue with this previously. He also endorses some mild hypotension at home. He reports that he has been holding her metoprolol and digoxin secondary to blood pressures being in the 90s and low 100s. He endorses heart rate in the low 100s which is her baseline. He does state that he has been continuing to give her Eliquis and decided to bring her to the emergency department when he noticed a dark tarry stool. Patient does have a mild altered mental status but has no overt complaints. at bedside does not report any noted fever, any complaints of pain or any episodes of passing out. Laboratory evaluation emergency department positive for Hemoccult stool. Hemoglobin hematocrit stable but downtrending from August. Patient did have mild A. fib with RVR with rates in the low 100s. She was given a dose of metoprolol p.o. Surgery was consulted and recommends hospitalization and likely scope at some point during hospitalization. She is currently admitted to the hospital service. Hospital Course Hospital Course Hospital Course: Patient came to the ER on 11/01 a large volume of dark stools observed by her who is her curtain worker. Patient has a history of A. fib and she is on metoprolol, digoxin, and Eliquis chronically. Patient had some low blood pressure at home and so was holding her metoprolol and digoxin, although she continued to get Eliquis. On 10/29 patient had an EGD that was essentially normal, no source of bleeding identified. Since that time her hemoglobin has remained relatively stable around 9.5, although it did go as high as 10.3 on 10/30 and as low as 8.8 on 10/31 therefore patient was kept another day to ensure her hemoglobin was not trending downward. Hemoglobin rechecked yesterday was near her baseline at 9.9 and this morning is again around her baseline at 9.7. Additionally, patient had a CT abdomen and pelvis with contrast yesterday and no source of bleeding was identified. A severe L1 compression fracture is observed, causing severe canal stenosis, however patient has been nonambulatory for some time, so this is relatively inconsequential. CT also showed moderate bilateral pleural effusions. Echo done on 10/29 showed an EF of 55% with no regional wall motion abnormality, diastolic parameters inconclusive. Patient will therefore continue Lasix 20 mg p.o. twice daily going home. It is recommended that she follow-up with general surgery as an outpatient and perhaps get a colonoscopy next month. Patient should stop her Eliquis as the risks outweigh the benefit at this point, continue metoprolol and digoxin. Exam Data for Last 24 hours Vital signs and Labs for Last 24 Hours: Temp Pulse Resp BP Pulse Ox 98.4 F 112 H 16 120/79 99 11/01/22 08:00 11/01/22 08:00 11/01/22 08:00 11/01/22 08:00 11/01/22 04:00 Laboratory Results - last 24 hr 10/31/22 15:11: WBC 4.5 L D, RBC 3.01 L, Hgb 9.9 L D, Hct 29.2 L, MCV 96.7, MCH 32.8 H, MCHC 33.9, RDW 15.8, Plt Count 169, MPV 10.5 H, Neut % (Auto) 54.1, Lymph % (Auto) 35.7, [place] % (Auto) 5.8, Eos % (Auto) 3.9,
--- NOTE | 2022-11-01 11:22 | PC.NURSE ---
pt noted to have one incontinent stool x1. large dark.
--- NOTE | 2022-11-01 11:37 | PC.NURSE ---
pt has been discahrged from the facility via private car with . Saline lock discontinued. educated on follow up appt as well as signs of bleeding. voiced understanding
--- NOTE | 2022-11-03 16:25 | SW/DCPLANNER ---
Addendum entered by Keysha Hess 11/04/22 10:39: Favio pagan/ [facility] stated that services will begin this week for this patient. Original Note: Per patient request: patient information/order has been faxed to [facility]: I will follow up once patient information is reviewed.
--- NOTE | 2022-11-04 14:00 | CARE MANAGER ---
Attempted post-discharge phone interview, patient answered.
== END 2022-11-01 11:30 | disposition home health service (06) ==
LOC: ER 19:24 → 2ND 10-29 00:42 → ICU 10-29 11:22 → 2ND 10-30 18:05
PROVIDERS: Nurse Practitioner Acute Care; Surgery; Admitting Provider Emergency Medicine; Emergency Provider Emergency Medicine; PCP Family Medicine; Visit Provider Emergency Medicine
PROC: 0DJ08ZZ Inspection of Upper Intestinal Tract, Via Natural or Artificial Opening Endoscopic (ICD-10-PCS; CPT 43235; principal; 2022-10-29 15:00)
DX: K92.2 Gastrointestinal hemorrhage, unspecified (principal); I48.91 Unspecified atrial fibrillation; I10 Essential (primary) hypertension; A04.72 Enterocolitis due to Clostridium difficile, not specified as recurrent; Z16.24 Resistance to multiple antibiotics; N39.0 Urinary tract infection, site not specified; R07.9 Chest pain, unspecified; R41.89 Other symptoms and signs involving cognitive functions and awareness; I60.7 Nontraumatic subarachnoid hemorrhage from unspecified intracranial artery; Z79.01 Long term (current) use of anticoagulants; K92.1 Melena
CPT/HCPCS: 43239; G0378; 36415; 74177; 80048; 80053; 81001; 82272; 83605; 83690; 83735; 84484; 85014; 85018; 85025; 85610; 85730; 86850; 87086; 87088; 87186; 87507; 88305; 88342; 93005; 93306; 97162; 97165; 97530; 97535; 99285; C9803; G0328; J1335; J2405; J3370; Q9967; U0003; U0005

== ENCOUNTER 2022-12-26 11:06 | Emergency (ER) | payer MEDICARE, SELFPAY ==
[2022-12-26] VITALS (7 sets, daily range): BP systolic 126–150; BP diastolic 77–107; PULSE 118–136; RESP 16–29; TEMP 36.4–36.9; O2SAT 93–99; BMI 20.3
--- NOTE | 2022-12-26 11:12 | ECG_ITS ---
APPROVED REPORT Exam: Resting ECG HR:134 bpm ECG Measurements Heart Rate 134 AXES QRSd 86 QRS -8 QT 292 T 54 QTc 371 Conclusion ATRIAL FIBRILLATION WITH RAPID VENTRICULAR RESPONSE POSSIBLE RIGHT VENTRICULAR CONDUCTION DELAY [RSR (QR) IN V1/V2] PROBABLE SEPTAL MYOCARDIAL INFARCTION , OF INDETERMINATE AGE [35 ms Q WAVE IN V1/V2] ABNORMAL ECG UNCONFIRMED REPORT Electronically signed by : Marcial Alfonso MD 12/27/2022 08:51:54
--- NOTE | 2022-12-26 11:15 | HMH.EDGENADL ---
Discharge Plan Disposition Patient Disposition: Hospice - Medical Facility Prescriptions Prescriptions: No Action furosemide 20 mg tablet 40 mg PO DAILY Qty: 60 5RF lisinopril 10 mg tablet 10 mg PO DAILY metoprolol tartrate 100 mg tablet 100 mg PO BID Qty: 60 0RF quetiapine 25 mg Tablet 12.5 mg PO HSP PRN (Reason: Insomnia) Qty: 30 0RF vancomycin 250 mg capsule 250 mg PO QID Qty: 48 0RF moxifloxacin 400 mg tablet 400 mg PO DAILY 7 Days Qty: 7 0RF potassium chloride 10 mEq tablet,ER particles/crystals 10 meq PO DAILY Qty: 20 0RF digoxin 125 mcg (0.125 mg) tablet 125 mcg PO DAILY Activity Restrictions/Add. Instructions Additional Instructions/Restrictions: After discussion with the we decided to pursue palliative care in this case and not to do any further medical interventions or medical work-up and to keep the patient comfortable. Clinical Impressions Clinical Impression: Encounter for palliative care, Altered mental status Instructions Patient Instructions: DI for Altered Mental Status Discharge ED Provider: Bishop Frazier General Adult HPI General Chief complaint: Altered Mental Status Stated complaint: ams Time Seen by Provider: 12/26/22 11:15 History of Present Illness HPI narrative: Patient is a 77-year-old female brought in by EMS for altered mental status from retirement. She is accompanied by her who is the primary historian. He states that she is chronically debilitated from her brain being fried from an infection . But her breathing is significantly worsened with prolonged periods of apnea and an elevated heart rate per her retirement. History from the patient is unable to be obtained. Related Data Home Medications Medication Instructions Recorded Confirmed digoxin 125 mcg (0.125 mg) tablet 125 mcg PO DAILY Heart failure 08/13/22 10/28/22 lisinopril 10 mg tablet 10 mg PO DAILY High blood pressure 10/29/22 10/29/22 Previous Rx's Medication Instructions Recorded furosemide 20 mg tablet 40 mg PO DAILY Edema #60 tabs 07/16/22 metoprolol tartrate 100 mg tablet 100 mg PO BID #60 tabs 11/01/22 moxifloxacin 400 mg tablet 400 mg PO DAILY 7 days #7 tabs 11/01/22 potassium chloride 10 mEq 10 meq PO DAILY Supplement #20 tabs 11/01/22 tablet,extended release(part/cryst) quetiapine 25 mg tablet 12.5 mg PO HSP PRN Insomnia #30 11/01/22 tabs vancomycin 250 mg capsule 250 mg PO QID #48 caps 11/01/22 Allergies Allergy/AdvReac Type Severity Reaction Status Date / Time warfarin [From Coumadin] Allergy Verified 09/17/22 13:47 [facility] Disclaimer: The information contained in this section may have been updated after the patient was seen, as this information can be updated by other users. Medical History Abnormal electrocardiography Atrial fibrillation Social History Smoking Status: Never smoker alcohol intake: never substance use type: denies use current occupational status: retired Travel in the last 8 weeks: None household members: spouse housing: house ROS Obtained: Yes All systems reviewed & no additional complaints except as documented Physical Exam General General appearance: other (Chronically ill minimally interactive) Respiratory Respiratory exam: Present other (Intermittent episodes of apnea abnormal respiratory angela but no focal a abnormal lung) Cardiovascular Cardiovascular exam: Present tachycardia and irregular rhythm Neurological Exam Neurological exam: Present alert (Disoriented minimally interactive) Medical Decision Making Venkatesh Inquiry Pt receiving controlled substance: No Vital Signs: 12/26/22 11:15 Temperature 98.4 F Temperature Source Oral Pulse Rate [Right Radial] 131 H Respiratory Rate 29 H Blood Pressure [Right Arm] 150/99 H Blood Pressure Mean [Right A
--- NOTE | 2022-12-26 11:36 | PC.NURSE ---
placed call to care management, they are to contact [facility] and work on hospice placement per family request
--- NOTE | 2022-12-26 12:55 | PC.NURSE ---
CARE MANAGEMENT HERE TO SEE PT
--- NOTE | 2022-12-26 13:06 | PC.NURSE ---
CARE MANAGEMENT SPOKE WITH FAMILY , THEY JUST WANT COMFORT MEASURES , UNLESS PT HAS A MEDICAL REASON TO BE ADMITTED , PT IS TO BE SENT BACK TO [facility] FOR FURTHER CARE. FAMILY HAS DECLINED HOSPICE AT THIS TIME
--- NOTE | 2022-12-26 13:37 | CARE MANAGER ---
I met with patient and spouse in the ED to discuss discharge planning. Spouse states that he does not want Hospice, but is open to palliative care in a halfway bed. Patient is currently at [facility] in a SNF bed. I notified Amy at [facility], that patient is planned for discharge back to there.
== END 2022-12-26 14:33 | disposition hospice, inpatient (51) ==
PROVIDERS: Emergency Provider Student in an Organized Health Care Education/Training Program; PCP Family Medicine
DX: R41.82 Altered mental status, unspecified (principal); Z51.5 Encounter for palliative care; I48.91 Unspecified atrial fibrillation
CPT/HCPCS: 93005; 99285